=== PATIENT | female | born 1980 | race Caucasian/White ===

== ENCOUNTER 2017-04-15 08:55 | Emergency (ER) | payer SELFPAY ==
[~2017-04-15 08:55] MED LIST: SULF1TAB47 PO; TOBRA.3%O LEFT EYE; Z.0.NO CURRENT MEDS
[2017-04-15] MEDS ORDERED: XANA1TAB2 PO (09:06)
[2017-04-15] MEDS ORDERED: AMLO5TAB2 PO (09:06)
[2017-04-15] MEDS ORDERED: LORazepam 2 MG/ML VIAL IV PUSH ONE (09:15)
--- NOTE | 2017-04-15 09:20 | PD ---
HPI Chief Complaint: Seizure Time Seen by Provider: 09:07 Travel History International Travel<30 days: No Contact w/Intl Traveler<30days: No Traveled to known affect area: No History of Present Illness HPI The patient was seen and examined in the presence of the nurse. Patient is brought in by paramedics who believe she had a seizure. She was at a bus stop and fell to the ground and had tonic-clonic seizure activity for approximately 1 minute according to bystanders. She seemed postictal to the paramedics. She was a bit confused and groggy. She is slowly and steadily clearing up. She denies any complaint at this time. She takes Xanax 3 times a day for years for anxiety. She recently increased her dose to 4 times a day because of trouble sleeping and then ran out 2 days ago. She had a Xanax withdrawal seizure one year ago but has no history of epilepsy and takes no seizure medications. She denies head or neck pain. She did bite her tongue and has a bruise there. Symptoms were moderately severe but she has improved without alleviating factors. Duration was approximately 1 minute. PFSH Past Medical History Anxiety: Yes Depression: Yes Hypertension: Yes Seizures: Yes ?: Not Social History Alcohol Use: Yes (OCCASIONALLY) Tobacco Use: Yes Substance Use: No Allergies-Medications (Allergen,Severity, Reaction): Coded Allergies: No Known Allergies (Verified , 01/29/10) Reported Meds & Prescriptions Reported Meds & Active Scripts Active Reported Xanax (Alprazolam) 1 Mg Tab 1 Mg PO Q8H Amlodipine (Amlodipine Besylate) 5 Mg Tab 5 Mg PO DAILY Review of Systems General / Constitutional: No: Fever Eyes: No: Visual changes HENT: No: Headaches Cardiovascular: Positive: Tachycardia, No: Chest Pain or Discomfort Respiratory: No: Shortness of Breath Gastrointestinal: No: Abdominal Pain Genitourinary: No: Dysuria Musculoskeletal: No: Pain Skin: No Rash Neurologic: Positive: Seizures, No: Weakness Psychiatric: Positive: Anxiety, No: Depression Endocrine: No: Polydipsia Hematologic/Lymphatic: No: Easy Bruising Physical Exam Narrative GENERAL: Well-nourished, well-developed patient in no apparent distress. SKIN: Focused skin assessment reveals no rash and nodules. Skin is Warm and dry. HEAD: Atraumatic. Normocephalic. EYES: Pupils equal and round. No scleral icterus. No injection or drainage. ENT: No nasal bleeding or discharge. Mucous membranes pink and moist. There is bruising on her tongue NECK: Trachea midline. No JVD. No midline tenderness CARDIOVASCULAR: Regular rate and rhythm. No murmur appreciated. RESPIRATORY: No accessory muscle use. Clear to auscultation. Breath sounds equal bilaterally. GASTROINTESTINAL: Abdomen soft, non-tender, nondistended. Hepatic and splenic margins not palpable. MUSCULOSKELETAL: No obvious deformities. No clubbing. No cyanosis. No edema. NEUROLOGICAL: Awake and alert. No obvious cranial nerve deficits. Motor grossly within normal limits. Normal speech. PSYCHIATRIC: Appropriate mood and affect. She is calm and not anxious now.; insight and judgment reduced. Data Data Last Documented VS Vital Signs Date Time Temp Pulse Resp B/P Pulse Ox O2 Delivery O2 Flow Rate FiO2 04/15/17 09:03 Room Air Orders Iv Access Insert/Monitor (04/15/17 09:14) Complete Blood Count With Diff (04/15/17 09:14) Basic Metabolic Panel (Bmp) (04/15/17 09:14) Lorazepam Inj (Ativan Inj) (04/15/17 09:15) Electrocardiogram (04/15/17 09:15) Labs Laboratory Tests Test 04/15/17 09:20 White Blood Count 12.9 TH/MM3 Red Blood Count 5.12 MIL/MM3 Hemoglobin 16.2 GM/DL Hematocrit 47.1 % Mean Corpuscular Volume 92.0 FL Mean Corpuscular Hemoglobin 31.5 PG Mean Corpuscular Hemoglobin 34.3 % Concent Red Cell Distribution Width 12.8 % Platelet Count 295 TH/MM3 Mean Platelet Volume 8.3 FL Neutrophils (%) (Auto) 75.9 % Lymphocytes (%) (Auto) 19.8 % Monocytes (%) (Auto) 3.5 % Eosinophils (%) (Auto) 0.4 % Basophils (%) (Auto) 0.4 % Neutrophils # (Auto) 9.7 TH/MM3 Lymphocytes # (Auto) 2.5 TH/MM3 Monocytes # (Auto) 0.4 TH/MM3 Eosinophils # (Auto) 0.1 TH/MM3 Basophils # (Auto) 0.1 TH/MM3 CBC Comment DIFF FINAL Differential Comment Sodium Level 132 MEQ/L Potassium Level 3.6 MEQ/L Chloride Level 97 MEQ/L Carbon Dioxide Level 18.4 MEQ/L Anion Gap 17 MEQ/L Blood Urea Nitrogen 10 MG/DL Creatinine 1.13 MG/DL Estimat Glomerular Filtration 54 ML/MIN Rate Random Glucose 219 MG/DL Calcium Level 9.0 MG/DL MDM Medical Decision Making Medical Screen Exam Complete: Yes Emergency Medical Condition: Yes Medical Record Reviewed: Yes Differential Diagnosis Benzodiazepine withdrawal seizure, epilepsy, alcohol withdrawal, tremor, anxiety Narrative Course I have reviewed the patient's electronic medical record. Her last visit here was 2011. No visits for seizure IV placed CBC is normal except minimal leukocytosis Metabolic profile shows minor abnormalities not requiring emergent treatment I gave her 1 mg IV Ativan No neurologic deficit noted. I don't see indication for emergent brain imaging. She has no headache and is awake and conversant. We'll reevaluate her closely and observe for a while. I will observe her for 3 hours and she's had no recurrence of seizure. She is asymptomatic now. We discussed my recommendation for a slow long-term wean off of Xanax I wrote her 9 Librium to keep withdrawal and anxiety a day and she should call her physician tomorrow Diagnosis Primary Impression: Benzodiazepine withdrawal with complication Additional Impressions: Seizure Xanax use disorder, moderate, dependence Additional Instructions: The patient was advised to follow up with their physician and return if they worsen. The patient was warned about potential sedation for the medications they will receive on prescription. Recommending a slow long-term wean off of Xanax which you should discuss with your physician Med/Other Pt SpecificInfo: Prescription(s) given Scripts Chlordiazepoxide HCl 25 Mg [id number] Mg PO Q12HR PRN (WITHDRAWAL) #9 Prov:Ayaz Ospina MD 04/15/17 Disposition: 01 DISCHARGE HOME Condition: Stable Ayaz Ospina MD Apr 15, 2017 09:20
[2017-04-15 09:38] LABS: AUTOMATED NEUTROPHIL # 9.7 TH/MM3 (1.8-7.7); BASOPHIL # 0.1 TH/MM3 (0-0.2); BASOPHIL % 0.4 % (0.0-2.0); EOSINOPHIL # 0.1 TH/MM3 (0-0.4); EOSINOPHIL % 0.4 % (0.0-4.0); HEMATOCRIT 47.1 % (35.0-46.0); HEMO FLAGS DIFF FINAL; LYMPH % 19.8 % (9.0-44.0); LYMPHOCYTE # 2.5 TH/MM3 (1.0-4.8); MEAN CORPUSCULAR HEMOGLOBIN 31.5 PG (27.0-34.0); MEAN CORPUSCULAR HGB CONC 34.3 % (32.0-36.0); MONO % 3.5 % (0.0-8.0); NEUT % 75.9 % (16.0-70.0); PLATELET COUNT 295 TH/MM3 (150-450); RED BLOOD COUNT 5.12 MIL/MM3 (4.00-5.30); RED CELL DISTRIBUTION WIDTH 12.8 % (11.6-17.2); WHITE BLOOD COUNT 12.9 TH/MM3 (4.0-11.0)
[2017-04-15 10:02] LABS: BICARBONATE 18.4 MEQ/L (21.0-32.0); POTASSIUM 3.6 MEQ/L (3.5-5.1)
[2017-04-15] MEDS ORDERED: CHLO25CA9 PO (11:42)
--- NOTE | 2017-04-15 18:15 | EKG ---
Date Performed: 04/15/2017 Time Performed: 09:15:20 PTAGE: 37 years EKG: SINUS TACHYCARDIA WITH SHORT UT INTERVAL NONSPECIFIC ST & T-WAVE ABNORMALITY ABNORMAL RHYTH M ECG NO PREVIOUS TRACING DOCTOR: Bruce Bhandari Interpretating Date/Time 04/15/2017 18:11:48
== END 2017-04-15 11:57 | disposition home or self-care (01) ==
LOC: NEPC 08:55
DX: F15.93 Other stimulant use, unspecified with withdrawal (principal); R56.9 Unspecified convulsions; F15.90 Other stimulant use, unspecified, uncomplicated; D72.829 Elevated white blood cell count, unspecified; F41.9 Anxiety disorder, unspecified; R00.0 Tachycardia, unspecified; R94.31 Abnormal electrocardiogram [ECG] [EKG]; F32.9 Major depressive disorder, single episode, unspecified; I10 Essential (primary) hypertension; Z79.899 Other long term (current) drug therapy; Z72.0 Tobacco use
CPT/HCPCS: 80048; 85025; 93005; 96374; 99284; J2060

== ENCOUNTER 2017-09-07 11:40 | Emergency (ER) | payer SELFPAY ==
[~2017-09-07 11:40] MED LIST changes: +AMLO5TAB2 PO; +CHLO25CA9 PO; -SULF1TAB47 PO; -TOBRA.3%O LEFT EYE; +XANA1TAB2 PO; -Z.0.NO CURRENT MEDS
[2017-09-07 11:55] VITALS: BP 126/84; PULSE 51; RESP 16; TEMP 98.9; O2SAT 98
--- NOTE | 2017-09-07 12:06 | PD ---
HPI Chief Complaint: altered mental status Time Seen by Provider: 11:44 Travel History International Travel<30 days: No Contact w/Intl Traveler<30days: No Traveled to known affect area: No History of Present Illness HPI 37-year-old female was brought in by EMS after the patient was [place] Patient is not cooperating answering questions. In review of medical record, patient has history of hypertension, anxiety, depression, and possible seizure. Patient was on Xanax in the past. PFSH Past Medical History Anxiety: Yes Depression: Yes Hypertension: Yes Seizures: Yes Social History Alcohol Use: Yes (OCCASIONALLY) Tobacco Use: Yes Substance Use: No Allergies-Medications (Allergen,Severity, Reaction): Coded Allergies: No Known Allergies (Verified , 01/29/10) Reported Meds & Prescriptions Reported Meds & Active Scripts Active Chlordiazepoxide HCl 25 Mg Capsule 25 Mg PO Q12HR PRN Reported Xanax (Alprazolam) 1 Mg Tab 1 Mg PO Q8H Amlodipine (Amlodipine Besylate) 5 Mg Tab 5 Mg PO DAILY Review of Systems General / Constitutional: No: Fever Eyes: No: Visual changes HENT: No: Headaches Cardiovascular: No: Chest Pain or Discomfort Respiratory: No: Shortness of Breath Gastrointestinal: No: Abdominal Pain Genitourinary: No: Dysuria Musculoskeletal: No: Pain Skin: No Rash Neurologic: No: Weakness Psychiatric: No: Depression Endocrine: No: Polydipsia Hematologic/Lymphatic: No: Easy Bruising Physical Exam Narrative GENERAL: Well-nourished, well-developed patient. SKIN: Focused skin assessment warm/dry. HEAD: Normocephalic. EYES: No scleral icterus. No injection or drainage. Pupils 1.5 mm equal reactive. NECK: Supple, trachea midline. No JVD or lymphadenopathy. CARDIOVASCULAR: Regular rate and rhythm without murmurs, gallops, or rubs. RESPIRATORY: Breath sounds equal bilaterally. No accessory muscle use. GASTROINTESTINAL: Abdomen soft, non-tender, nondistended. MUSCULOSKELETAL: No cyanosis, or edema. BACK: Nontender without obvious deformity. No CVA tenderness. Neurologic exam: Patient is awake however would not answer much to the questions. Patient moves all extremities well. No obvious focal neurological deficit. Data Data Last Documented VS Vital Signs Date Time Temp Pulse Resp B/P (MAP) Pulse Ox O2 Delivery O2 Flow Rate FiO2 12/15/17 11:55 98.9 51 16 126/84 (98) 98 Orders Orders Complete Blood Count With Diff (09/07/17 11:44) Comprehensive Metabolic Panel (09/07/17 11:44) Thyroid Stimulating Hormone (09/07/17 11:44) Urinalysis - C+S If Indicated (09/07/17 11:44) Iv Access Insert/Monitor (09/07/17 11:44) Beta Hcg (Quant/Titer) (09/07/17 11:44) Psych Screen (09/07/17 11:44) Drug Screen, Random Urine (09/07/17 11:44) Alcohol (Ethanol) (09/07/17 11:44) Ed Urine Pregnancytest Poc (09/07/17 12:03) Salicylates (Aspirin) (09/07/17 12:04) Tylenol (Acetaminophen) (09/07/17 12:04) Labs Laboratory Tests Test 09/07/17 12:09 White Blood Count 10.2 TH/MM3 Red Blood Count 4.60 MIL/MM3 Hemoglobin 13.6 GM/DL Hematocrit 41.1 % Mean Corpuscular Volume 89.3 FL Mean Corpuscular Hemoglobin 29.5 PG Mean Corpuscular Hemoglobin Concent 33.0 % Red Cell Distribution Width 12.0 % Platelet Count 292 TH/MM3 Mean Platelet Volume 7.9 FL Neutrophils (%) (Auto) 68.4 % Lymphocytes (%) (Auto) 23.2 % Monocytes (%) (Auto) 7.7 % Eosinophils (%) (Auto) 0.2 % Basophils (%) (Auto) 0.5 % Neutrophils # (Auto) 6.9 TH/MM3 Lymphocytes # (Auto) 2.4 TH/MM3 Monocytes # (Auto) 0.8 TH/MM3 Eosinophils # (Auto) 0.0 TH/MM3 Basophils # (Auto) 0.1 TH/MM3 CBC Comment DIFF FINAL Differential Comment Urine Color YELLOW Urine Turbidity CLEAR Urine pH 6.0 Urine Specific [place] 1.033 Urine Protein 30 mg/dL Urine Glucose (UA) NEG mg/dL Urine Ketones 80 OR GREATER mg/dL Urine Occult Blood NEG Urine Nitrite NEG Urine Bilirubin NEG Urine Leukocyte Esterase NEG Urine WBC 0-2 /hpf Urine Squamous Epithelial Cells 0-5 /hpf Urine Bacteria RARE /hpf Microscopic Urinalysis Comment CULT NOT INDICATED Blood Urea Nitrogen 29 MG/DL Creatinine 0.59 MG/DL Random Glucose 102 MG/DL Total Protein 8.2 GM/DL Albumin 4.1 GM/DL Calcium Level 8.9 MG/DL Alkaline Phosphatase 59 U/L Aspartate Amino Transf (AST/SGOT) 193 U/L Alanine Aminotransferase (ALT/SGPT) 70 U/L Total Bilirubin 0.9 MG/DL Sodium Level 142 MEQ/L Potassium Level 3.7 MEQ/L Chloride Level 108 MEQ/L Carbon Dioxide Level 22.1 MEQ/L Anion Gap 12 MEQ/L Estimat Glomerular Filtration Rate 113 ML/MIN Thyroid Stimulating Hormone 3rd Gen 0.307 uIU/ML Human Chorionic Gonadotropin, Quant LESS THAN 1 MIU/ML Urine Opiates Screen NEG Urine Barbiturates Screen NEG Urine Amphetamines Screen NEG Urine Benzodiazepines Screen POS Urine Cocaine Screen NEG Urine Cannabinoids Screen NEG Ethyl Alcohol Level LESS THAN 3 MG/DL MDM Medical Decision Making Medical Screen Exam Complete: Yes Emergency Medical Condition: Yes Differential Diagnosis Differential diagnosis including substance-induced mood disorder, psychosis, schizophrenia. Narrative Course 37-year-old female was found sleeping in front of the local postal office. Patient was brought in by EMS. Patient's uncooperative for vocalizing her complaint. Patient is medically cleared for psychiatric evaluation and disposition. Patient will be transferred to the main hospital, psychiatric area for evaluation. Cole Ramires MD Sep 07, 2017 12:06
[2017-09-07 12:19] LABS: AUTOMATED NEUTROPHIL # 6.9 TH/MM3 (1.8-7.7); BASOPHIL # 0.1 TH/MM3 (0-0.2); BASOPHIL % 0.5 % (0.0-2.0); EOSINOPHIL % 0.2 % (0.0-4.0); HEMATOCRIT 41.1 % (35.0-46.0); HEMOGLOBIN 13.6 GM/DL (11.6-15.3); LYMPH % 23.2 % (9.0-44.0); LYMPHOCYTE # 2.4 TH/MM3 (1.0-4.8); MEAN CELL VOLUME 89.3 FL (80.0-100.0); MEAN CORPUSCULAR HEMOGLOBIN 29.5 PG (27.0-34.0); MEAN PLATELET VOLUME 7.9 FL (7.0-11.0); MONO % 7.7 % (0.0-8.0); MONOCYTE # 0.8 TH/MM3 (0-0.9); NEUT % 68.4 % (16.0-70.0); PLATELET COUNT 292 TH/MM3 (150-450); WHITE BLOOD COUNT 10.2 TH/MM3 (4.0-11.0)
[2017-09-07 12:20] LABS: CHLORIDE 108 MEQ/L (98-107); SODIUM (NA) 142 MEQ/L (136-145)
[2017-09-07 12:24] LABS: ALBUMIN 4.1 GM/DL (3.4-5.0); BICARBONATE 22.1 MEQ/L (21.0-32.0); BLOOD UREA NITROGEN 29 MG/DL (7-18); BLOOD, URINE NEG (NEG); CALCIUM 8.9 MG/DL (8.5-10.1); GLUCOSE,RANDOM 102 MG/DL (74-106); GLUCOSE,URINE NEG (NEG); KETONE, URINE 80 OR GREATER mg/dL (NEG); NITRITE,URINE NEG (NEG); URINE LEUKOCYTE ESTERASE NEG (NEG)
[2017-09-07 12:27] LABS: ALT (GPT) 70 U/L (10-53); AST (GOT) 193 U/L (15-37); CREATININE 0.59 MG/DL (0.50-1.00); GLOMERULAR FILTRATION RATE 113 ML/MIN (>89)
[2017-09-07 12:29] LABS: TOTAL BILIRUBIN ADULT 0.9 MG/DL (0.2-1.0); TOTAL PROTEIN 8.2 GM/DL (6.4-8.2)
[2017-09-07 12:30] LABS: ALKALINE PHOSPHATASE 59 U/L (45-117)
[2017-09-07 12:42] LABS: BILIRUBIN, URINE NEG (NEG)
[2017-09-07 12:43] LABS: URINE COLOR YELLOW (YELLW/STRAW)
[2017-09-07 12:44] LABS: SQUAMOUS EPITHELIAL CELL URINE 0-5 /hpf (0-5); WBC, URINE 0-2 /hpf (0-5)
[2017-09-07 12:45] LABS: BACTERIA, URINE RARE /hpf
[2017-09-07 14:27] VITALS: BP 156/86; PULSE 113; RESP 18; TEMP 98.1; O2SAT 100
[2017-09-07 15:19] VITALS: TEMP 99.3
[2017-09-07] MEDS ORDERED: OLANZapine IM 10 MG VIAL IM ONE (15:30)
--- NOTE | 2017-09-07 17:39 | PD ---
History of Present Illness Chief Complaint: Altered Mental Status Time Seen by Provider: 15:00 Travel History International Travel<30 Days: No Contact w/Intl Traveler<30days: No Known affected area: No Legal Status Legal Status: Involuntary Beasley Act Comment: GARRICK Bryant History of Present Illness: History of Present Illness HPI 37-year-old female with unknown past psychiatric history who was brought in by EMS after the patient was found sleeping in front of a the post office. Upon arrival to the ED the patient was not answering any of the questions posed to her. The patient was placed in [facility] for further evaluation and observation. She is able to follow directions but is not answering any questions. She is wondering around her her room and has taken off her hospital down several times. She appears internally preoccupied as well as appears frightened. She has not provided any any history. She appears sunburned asked if she lopez has been outside. Patient not accepting redirection to keep her hospital gown on and remains restless. ETO is administered at this time. Patient missed placed under Beasley act for further observation, due to inability to care for self. Electronic medical record is reviewed she was seen in the emergency room in April 15 for benzodiazepine withdrawal and reported history of seizure. Current toxicology is positive for benzo. I placed a call to her father Ata Kiser at [birth year] [phone] as he is listed as person to contact in case of an emergency. Her father reports that she has a long history of substance abuse and that she is supposedly going to a methadone clinic every day. She last contact him last week and he wired her $300 to pay for a motel room. As far as he knows she has no previous psychiatric history. At approximately 1900 zully is observed talking to her mother over the telephone. She is speaking coherently and clearly and is overheard making demands of her mother.. PFSH Past Medical History Medical History: Unable to Obtain Anxiety: Yes Depression: Yes Hypertension: Yes Seizures: Yes ?: Unknown LMP: would not answer Past Surgical History Surgical History: Unable to Obtain Psychiatric History Psychiatric History Hx Psychiatric Treatment: Unknown Social History female, possibly homeless. Hx Alcohol Use: Yes (OCCASIONALLY, from recalled history) Hx Tobacco Use: Yes (from recalled history) Family Psychiatric History Unknown Allergies-Medications (Allergen,Severity, Reaction): Coded Allergies: No Known Allergies (Verified Allergy, Unknown, 09/07/17) Reported Meds & Prescriptions Reported Meds & Active Scripts Active Chlordiazepoxide HCl 25 Mg Capsule 25 Mg PO Q12HR PRN Reported Xanax (Alprazolam) 1 Mg Tab 1 Mg PO Q8H Amlodipine (Amlodipine Besylate) 5 Mg Tab 5 Mg PO DAILY Review of Systems ROS Limitations: Clinical Condition Mental Status Examination Appearance: Appropriate Consciousness: Alert Motor Activity: Other (is walking with a limp to the left foot) Speech: Other (non-communicative) Language: Other (noncommunicative) Fund of Knowledge: Poor Attention and Concentration: Easily Distracted Memory: Impaired (unable to assess) Mood: Other (appears frightened) Affect: Blunt Thought Process & Associations: Other (unable to assess) Thought Content: Other (unable to assess) Hallucination Type: Other (unable to determine) Delusion Type: Other (unable to determine) Insight: Poor Judgment: Poor MDM Medical Decision Making Medical Record Reviewed: Yes Assessment/Plan 37-year-old female with unknown psychiatric history and reported history of substance abuse who presents to the emergency room brought in by EMS after she was found sleeping on a park bench. The patient was non-communicative, she is wandering around her verbal, taking her hospital gown off, not responding to verbal redirection, patient is placed under Beasley act for further observation. She is provided ETO. [facility]. Later in the afternoon the patient was heard speaking with her mother on the telephone without any impairment. She later refused to answer questions and began to communicate with non sensical words. Orders Orders Complete Blood Count With Diff (09/07/17 11:44) Comprehensive Metabolic Panel (09/07/17 11:44) Thyroid Stimulating Hormone (09/07/17 11:44) Urinalysis - C+S If Indicated (09/07/17 11:44) Iv Access Insert/Monitor (09/07/17 11:44) Beta Hcg (Quant/Titer) (09/07/17 11:44) Psych Screen (09/07/17 11:44) Drug Screen, Random Urine (09/07/17 11:44) Alcohol (Ethanol) (09/07/17 11:44) Ed Urine Pregnancytest Poc (09/07/17 12:03) Salicylates (Aspirin) (09/07/17 12:04) Tylenol (Acetaminophen) (09/07/17 12:04) Olanzapine Inj (Zyprexa Inj) (09/07/17 15:30) Diet Regular Basic (09/07/17 Dinner) Results Vital Signs Date Time Temp Pulse Resp B/P (MAP) Pulse Ox O2 Delivery O2 Flow Rate FiO2 09/07/17 15:19 99.3 09/07/17 14:27 98.1 113 18 156/86 (109) 100 Room Air 09/07/17 11:55 98.9 51 16 126/84 (98) 98 Laboratory Tests Test 09/07/17 12:09 White Blood Count 10.2 Red Blood Count 4.60 Hemoglobin 13.6 Hematocrit 41.1 Mean Corpuscular Volume 89.3 Mean Corpuscular Hemoglobin 29.5 Mean Corpuscular Hemoglobin Concent 33.0 Red Cell Distribution Width 12.0 Platelet Count 292 Mean Platelet Volume 7.9 Neutrophils (%) (Auto) 68.4 Lymphocytes (%) (Auto) 23.2 Monocytes (%) (Auto) 7.7 Eosinophils (%) (Auto) 0.2 Basophils (%) (Auto) 0.5 Neutrophils # (Auto) 6.9 Lymphocytes # (Auto) 2.4 Monocytes # (Auto) 0.8 Eosinophils # (Auto) 0.0 Basophils # (Auto) 0.1 CBC Comment DIFF FINAL Differential Comment Urine Color YELLOW Urine Turbidity CLEAR Urine pH 6.0 Urine Specific [place] 1.033 Urine Protein 30 Urine Glucose (UA) NEG Urine Ketones 80 OR GREATER Urine Occult Blood NEG Urine Nitrite NEG Urine Bilirubin NEG Urine Leukocyte Esterase NEG Urine WBC 0-2 Urine Squamous Epithelial Cells 0-5 Urine Bacteria RARE Microscopic Urinalysis Comment CULT NOT INDICATED Blood Urea Nitrogen 29 Creatinine 0.59 Random Glucose 102 Total Protein 8.2 Albumin 4.1 Calcium Level 8.9 Alkaline Phosphatase 59 Aspartate Amino Transf (AST/SGOT) 193 Alanine Aminotransferase (ALT/SGPT) 70 Total Bilirubin 0.9 Sodium Level 142 Potassium Level 3.7 Chloride Level 108 Carbon Dioxide Level 22.1 Anion Gap 12 Estimat Glomerular Filtration Rate 113 Thyroid Stimulating Hormone 3rd Gen 0.307 Human Chorionic Gonadotropin, Quant LESS THAN 1 Salicylates Level 2.1 Urine Opiates Screen NEG Acetaminophen Level LESS THAN 2.0 Urine Barbiturates Screen NEG Urine Amphetamines Screen NEG Urine Benzodiazepines Screen POS Urine Cocaine Screen NEG Urine Cannabinoids Screen NEG Ethyl Alcohol Level LESS THAN 3 Diagnosis Primary Impression: Substance-induced disorder Bella Grimes [employer] Sep 07, 2017 17:39
[2017-09-07 22:00] VITALS: BP 131/80; PULSE 88; RESP 16; TEMP 98.2; O2SAT 100
== END 2017-09-08 00:58 ==
LOC: PHED 11:40 → NEPJ 09-08 00:58
DX: F19.10 Other psychoactive substance abuse, uncomplicated (principal); F41.9 Anxiety disorder, unspecified; F32.9 Major depressive disorder, single episode, unspecified; R56.9 Unspecified convulsions; Z72.0 Tobacco use; Z79.899 Other long term (current) drug therapy
CPT/HCPCS: 80053; 80307; 81001; 84443; 84702; 84703; 85025; 96372; 99285; J3410

== ENCOUNTER 2017-10-07 16:10 | Inpatient (IN) | payer SELFPAY ==
[~2017-10-07] VITALS: Ht 170.2 cm; Wt 65.0 kg
[2017-10-07] VITALS (9 sets, daily range): BP systolic 91–113; BP diastolic 59–78; PULSE 83–96; RESP 17–25; TEMP 95.5–98.2; O2SAT 93–100
[2017-10-07] MEDS ORDERED: SODIUM CHLOR 0.9% 1000 ML INJ 1,000 ML IV ONE ×2 (16:16→17:00)
[2017-10-07] MEDS ORDERED: NALOXONE HCL 2 MG/2 ML VIAL IV PUSH ONE (16:30)
[2017-10-07] MEDS ORDERED: SODIUM CHLORIDE 0.9% FLUSH 10 ML FLUSH IVF PRN (16:30)
[2017-10-07 16:39] LABS: AUTOMATED NEUTROPHIL # 4.7 TH/MM3 (1.8-7.7); BASOPHIL # 0.1 TH/MM3 (0-0.2); BASOPHIL % 0.7 % (0.0-2.0); EOSINOPHIL # 0.2 TH/MM3 (0-0.4); EOSINOPHIL % 2.2 % (0.0-4.0); HEMATOCRIT 39.9 % (35.0-46.0); HEMOGLOBIN 13.7 GM/DL (11.6-15.3); LYMPH % 31.2 % (9.0-44.0); LYMPHOCYTE # 2.4 TH/MM3 (1.0-4.8); MEAN CELL VOLUME 94.1 FL (80.0-100.0); MEAN CORPUSCULAR HEMOGLOBIN 32.3 PG (27.0-34.0); MEAN CORPUSCULAR HGB CONC 34.4 % (32.0-36.0); MEAN PLATELET VOLUME 7.9 FL (7.0-11.0); MONO % 5.1 % (0.0-8.0); MONOCYTE # 0.4 TH/MM3 (0-0.9); NEUT % 60.8 % (16.0-70.0); PLATELET COUNT 243 TH/MM3 (150-450); RED BLOOD COUNT 4.24 MIL/MM3 (4.00-5.30); WHITE BLOOD COUNT 7.7 TH/MM3 (4.0-11.0)
[2017-10-07 17:07] LABS: ALBUMIN 3.4 GM/DL (3.4-5.0); ALKALINE PHOSPHATASE 88 U/L (45-117); ALT (GPT) 420 U/L (10-53); AST (GOT) 108 U/L (15-37); BICARBONATE 23.6 MEQ/L (21.0-32.0); BLOOD UREA NITROGEN 11 MG/DL (7-18); CALCIUM 7.8 MG/DL (8.5-10.1); CHLORIDE 115 MEQ/L (98-107); CREATININE 0.51 MG/DL (0.50-1.00); GLOMERULAR FILTRATION RATE 134 ML/MIN (>89); GLUCOSE,RANDOM 94 MG/DL (74-106); SODIUM (NA) 146 MEQ/L (136-145); TOTAL BILIRUBIN ADULT 0.4 MG/DL (0.2-1.0); TOTAL PROTEIN 7.1 GM/DL (6.4-8.2)
[2017-10-07 17:10] LABS: ACETAMINOPHEN LESS THAN 2.0 MCG/ML (10.0-30.0)
--- NOTE | 2017-10-07 17:20 | RADRPT ---
EXAM DATE/TIME: 10/07/2017 16:20 [facility] COMPARISON: No previous studies available for comparison. INDICATIONS : Syncope, possible overdose MEDICAL HISTORY : None. SURGICAL HISTORY : None. ENCOUNTER: Initial ACUITY: 1 day PAIN SCORE: Non-responsive. LOCATION: chest FINDINGS: A single view of the chest demonstrates the lungs to be symmetrically aerated without evidence of mas s, infiltrate or effusion. The cardiomediastinal contours are unremarkable. Osseous structures are intact. CONCLUSION: No evidence of acute cardiopulmonary disease. Mamadou Barcenas MD on October 07, 2017 at 17:17 Board Certified Radiologist. This report was verified electronically.
--- NOTE | 2017-10-07 17:58 | PD ---
HPI Chief Complaint: OD/ Ingestion Time Seen by Provider: 16:16 Travel History International Travel<30 days: No Contact w/Intl Traveler<30days: No Traveled to known affect area: No History of Present Illness HPI The patient 37 years old and arrives by EMS due to presumed overdose. Patient was found unresponsive on hotel floor. She had evidently ingested Xanax as a empty bottle was found in her hotel room which had been filled 14 days prior with 90 tablets. Unknown time of ingestion. EMS gave 0.8 mg Narcan with no significant improvement. Patient would push the examiner's hand away on sternal rub according to EMS suggesting a GCS of 9 (eyes to, verbal 2, motor 5) . Severity moderate. Timing constant. Duration unknown. PFSH Past Medical History Anxiety: Yes Depression: Yes Diminished Hearing: No (UTO) Hypertension: Yes Seizures: Yes Tetanus Vaccination: Unknown ?: Not Past Surgical History Surgical History: Unable to Obtain Social History Alcohol Use: Yes (OCCASIONALLY, from recalled history) Tobacco Use: Yes (from recalled history) Substance Use: No (UTO) Allergies-Medications (Allergen,Severity, Reaction): Coded Allergies: No Known Allergies (Verified Allergy, Unknown, 10/07/17) Reported Meds & Prescriptions Reported Meds & Active Scripts Active Chlordiazepoxide HCl 25 Mg Capsule 25 Mg PO Q12HR PRN Reported Xanax (Alprazolam) 1 Mg Tab 1 Mg PO Q8H Amlodipine (Amlodipine Besylate) 5 Mg Tab 5 Mg PO DAILY Review of Systems Except as stated in HPI: all other systems reviewed are Neg Physical Exam Narrative GENERAL: 37-year-old gcs 9 (eye 2, verbal 2, motor 5) SKIN: Warm and dry. HEAD: Atraumatic. Normocephalic. EYES: Pupils equal and round. No scleral icterus. No injection or drainage. ENT: No nasal bleeding or discharge. Mucous membranes pink and moist. The gag reflex is intact. NECK: Trachea midline. No JVD. CARDIOVASCULAR: The rhythm is regular at a rate of about 90. RESPIRATORY: Breath sounds are present bilaterally. GASTROINTESTINAL: Abdomen soft, non-tender, nondistended. Hepatic and splenic margins not palpable. MUSCULOSKELETAL: Extremities without clubbing, cyanosis, or edema. No obvious deformities. NEUROLOGICAL: GCS 9 as noted. The patient localizes to pain pushing away the examiner's hand upon arrival. PSYCHIATRIC: Concern for polysubstance abuse/overdose.. Data Data Last Documented VS Vital Signs Date Time Temp Pulse Resp B/P (MAP) Pulse Ox O2 Delivery O2 Flow Rate FiO2 10/07/17 17:39 90 18 91/61 (71) 97 Room Air 10/07/17 16:13 95.5 Vital signs reviewed Orders Orders Electrocardiogram (10/07/17 16:16) Complete Blood Count With Diff (10/07/17 16:16) Comprehensive Metabolic Panel (10/07/17 16:16) Chest, Single Ap (10/07/17 16:16) Arterial Blood Gas (Abg) (10/07/17 16:16) Iv Access Insert/Monitor (10/07/17 16:16) Ecg Monitoring (10/07/17 16:16) Oximetry (10/07/17 16:16) Oxygen Administration (10/07/17 16:16) Naloxone Inj (Narcan Inj) (10/07/17 16:30) Sodium Chloride 0.9% Flush (Ns Flush) (10/07/17 16:30) Sodium Chlor 0.9% 1000 Ml Inj (Ns 1000 M (10/07/17 16:16) Drug Screen, Random Urine (10/07/17 16:16) Alcohol (Ethanol) (10/07/17 16:16) Salicylates (Aspirin) (10/07/17 16:16) Tylenol (Acetaminophen) (10/07/17 16:16) ^ Straight Catheter (10/07/17 16:16) Sodium Chlor 0.9% 1000 Ml Inj (Ns 1000 M (10/07/17 17:00) Admit Order (Ed Use Only) (10/07/17 ) Piping Supervisor / Telemetry MENDEL.Q8H (10/07/17 17:58) Vital Signs (Adult) Q4H (10/07/17 17:58) Diet Npo (10/07/17 Dinner) Activity Bed Rest (10/07/17 17:58) Notify Dr: Other (10/07/17 17:58) Consult Psychiatry (10/07/17 ) Labs Laboratory Tests Test 10/07/17 16:20 10/07/17 16:30 10/07/17 16:33 White Blood Count 7.7 TH/MM3 Red Blood Count 4.24 MIL/MM3 Hemoglobin 13.7 GM/DL Hematocrit 39.9 % Mean Corpuscular Volume 94.1 FL Mean Corpuscular Hemoglobin 32.3 PG Mean Corpuscular Hemoglobin Concent 34.4 % Red Cell Distribution Width 14.0 % Platelet Count 243 TH/MM3 Mean Platelet Volume 7.9 FL Neutrophils (%) (Auto) 60.8 % Lymphocytes (%) (Auto) 31.2 % Monocytes (%) (Auto) 5.1 % Eosinophils (%) (Auto) 2.2 % Basophils (%) (Auto) 0.7 % Neutrophils # (Auto) 4.7 TH/MM3 Lymphocytes # (Auto) 2.4 TH/MM3 Monocytes # (Auto) 0.4 TH/MM3 Eosinophils # (Auto) 0.2 TH/MM3 Basophils # (Auto) 0.1 TH/MM3 CBC Comment DIFF FINAL Differential Comment Blood Urea Nitrogen 11 MG/DL Creatinine 0.51 MG/DL Random Glucose 94 MG/DL Total Protein 7.1 GM/DL Albumin 3.4 GM/DL Calcium Level 7.8 MG/DL Alkaline Phosphatase 88 U/L Aspartate Amino Transf (AST/SGOT) 108 U/L Alanine Aminotransferase (ALT/SGPT) 420 U/L Total Bilirubin 0.4 MG/DL Sodium Level 146 MEQ/L Potassium Level 4.1 MEQ/L Chloride Level 115 MEQ/L Carbon Dioxide Level 23.6 MEQ/L Anion Gap 7 MEQ/L Estimat Glomerular Filtration Rate 134 ML/MIN Salicylates Level LESS THAN 1.7 MG/DL Acetaminophen Level LESS THAN 2.0 MCG/ML Ethyl Alcohol Level 262 MG/DL Urine Opiates Screen NEG Urine Barbiturates Screen NEG Urine Amphetamines Screen NEG Urine Benzodiazepines Screen POS Urine Cocaine Screen POS Urine Cannabinoids Screen NEG Blood Gas Puncture Site RT RADIAL Blood Gas Patient Temperature 98.6 Blood Gas HCO3 22 mmol/L Blood Gas Base Excess -3.5 mmol/L Blood Gas Oxygen Saturation 94 % Arterial Blood pH 7.29 Arterial Blood Partial Pressure CO2 47 mmHg Arterial Blood Partial Pressure O2 91 mmHG Arterial Blood Oxygen Content 18.2 Vol % Arterial Blood Carboxyhemoglobin 1.7 % Arterial Blood Methemoglobin 0.6 % Blood Gas Hemoglobin 13.7 G/DL Oxygen Delivery Device ROOM AIR Blood Gas Inspired Oxygen 21 % [facility] Medical Decision Making Medical Screen Exam Complete: Yes Emergency Medical Condition: Yes Medical Record Reviewed: Yes Differential Diagnosis Polysubstance abuse, drug overdose of indeterminate intent, hypoxia Narrative Course CBC & BMP Diagram 10/07/17 16:20 Total Protein 7.1, Albumin 3.4, Calcium Level 7.8 L, Alkaline Phosphatase 88, Aspartate Amino Transf (AST/SGOT) 108 H, Alanine Aminotransferase (ALT/SGPT) 420 H, Total Bilirubin 0.4 Urine drug screen shows cocaine and benzos. The patient is hypothermic. A warm blanket has been started. Her pulse is been about 99 or so. The blood pressure is been 90/50. Rectal temp 95.9 warming blanket started Case was discussed with hospitalist who asked for consumer marketing analyst admission. Case discussed with Dr Flores for consumer marketing analyst service Patient examined at about 6 PM and at that point had GCS of 8 (eyes 2, verbal 1 , motor 5). The pulse was in the 90s and the blood pressure is 92/64 The patient had received 2 mg of IV Narcan and piloerection was observed along with dilation of the pupils which had been pinpoint upon arrival Presentation is concerning for a large benzodiazepine ingestion coupled with cocaine, alcohol and presumably opioids. Critical Care Narrative Aggregate critical care time was 35 minutes. Time to perform other separately billable procedures was not included in the critical care time. My time did not include minutes spent treating any other patients simultaneously or on activities that did not directly contribute to the patient's treatment. The services I provided to this patient were to treat and/or prevent clinically significant deterioration that could result in: Hypoxia, multiorgan failure I provided critical care services requiring my management, as noted below: Chart data review, documentation time, medication orders and management, vital sign assessments/reviewing monitor data, ordering and reviewing lab tests, ordering and interpreting/reviewing x-rays and diagnostic studies, care of the patient and discussion of the patient with the admitting physicians. Diagnosis Primary Impression: Overdose Additional Impression: Polysubstance abuse Wenceslao Power MD Oct 07, 2017 17:58
--- NOTE | 2017-10-07 18:16 | HHI.HP ---
[facility] No Primary Care Physician Admission Diagnosis PSA; Xanax Overdose Diagnoses: Travel History International Travel<30 Days: No Contact w/Intl Traveler <30 Da: No Traveled to Known Affected Are: No History of Present Illness Asleep with very little response to noxious stimuli Review of Systems ROS Limitations: Altered Mental Status Except as stated in HPI: all other systems reviewed are Neg Past Family Social History Allergies: Coded Allergies: No Known Allergies (Verified Allergy, Unknown, 10/07/17) Physical Exam Vital Signs Vital Signs Date Time Temp Pulse Resp B/P (MAP) Pulse Ox O2 Delivery O2 Flow Rate FiO2 10/07/17 17:39 90 18 91/61 (71) 97 Room Air 10/07/17 17:00 84 95/59 (71) 10/07/17 16:34 97 Room Air 10/07/17 16:13 95.5 93 17 113/78 (90) 97 Physical Exam GENERAL: This is a well-nourished, well-developed patient, in no apparent distress. SKIN: No rashes, ecchymoses or lesions. Cool and dry. HEAD: Atraumatic. Normocephalic. No temporal or scalp tenderness. EYES: Pupils equal round and reactive. Extraocular motions intact. No scleral icterus. No injection or drainage. ENT: Nose without bleeding, purulent drainage or septal hematoma. Throat without erythema, tonsillar hypertrophy or exudate. Uvula midline. Airway patent. NECK: Trachea midline. No JVD or lymphadenopathy. Supple, nontender, no meningeal signs. CARDIOVASCULAR: Regular rate and rhythm without murmurs, gallops, or rubs. RESPIRATORY: Clear to auscultation. Breath sounds equal bilaterally. No wheezes , rales, or rhonchi. GASTROINTESTINAL: Abdomen soft, non-tender, nondistended. No hepato-splenomegaly , or palpable masses. No guarding. MUSCULOSKELETAL: Extremities without clubbing, cyanosis, or edema. No joint tenderness, effusion, or edema noted. No calf tenderness. Negative Homans sign bilaterally. NEUROLOGICAL: Awake and alert. Cranial nerves II through XII intact. Motor and sensory grossly within normal limits. Five out of 5 muscle strength in all muscle groups. Normal speech. Laboratory Laboratory Tests Test 10/07/17 16:20 10/07/17 16:30 10/07/17 16:33 White Blood Count 7.7 Red Blood Count 4.24 Hemoglobin 13.7 Hematocrit 39.9 Mean Corpuscular Volume 94.1 Mean Corpuscular Hemoglobin 32.3 Mean Corpuscular Hemoglobin Concent 34.4 Red Cell Distribution Width 14.0 Platelet Count 243 Mean Platelet Volume 7.9 Neutrophils (%) (Auto) 60.8 Lymphocytes (%) (Auto) 31.2 Monocytes (%) (Auto) 5.1 Eosinophils (%) (Auto) 2.2 Basophils (%) (Auto) 0.7 Neutrophils # (Auto) 4.7 Lymphocytes # (Auto) 2.4 Monocytes # (Auto) 0.4 Eosinophils # (Auto) 0.2 Basophils # (Auto) 0.1 CBC Comment DIFF FINAL Differential Comment Blood Urea Nitrogen 11 Creatinine 0.51 Random Glucose 94 Total Protein 7.1 Albumin 3.4 Calcium Level 7.8 Alkaline Phosphatase 88 Aspartate Amino Transf (AST/SGOT) 108 Alanine Aminotransferase (ALT/SGPT) 420 Total Bilirubin 0.4 Sodium Level 146 Potassium Level 4.1 Chloride Level 115 Carbon Dioxide Level 23.6 Anion Gap 7 Estimat Glomerular Filtration Rate 134 Salicylates Level LESS THAN 1.7 Acetaminophen Level LESS THAN 2.0 Ethyl Alcohol Level 262 Urine Opiates Screen NEG Urine Barbiturates Screen NEG Urine Amphetamines Screen NEG Urine Benzodiazepines Screen POS Urine Cocaine Screen POS Urine Cannabinoids Screen NEG Blood Gas Puncture Site RT RADIAL Blood Gas Patient Temperature 98.6 Blood Gas HCO3 22 Blood Gas Base Excess -3.5 Blood Gas Oxygen Saturation 94 Arterial Blood pH 7.29 Arterial Blood Partial Pressure CO2 47 Arterial Blood Partial Pressure O2 91 Arterial Blood Oxygen Content 18.2 Arterial Blood Carboxyhemoglobin 1.7 Arterial Blood Methemoglobin 0.6 Blood Gas Hemoglobin 13.7 Oxygen Delivery Device ROOM AIR Blood Gas Inspired Oxygen 21 Result Diagram: 10/07/17 1620 10/07/17 1620 Caprini VTE Risk Assessment Caprini Risk Assessment Model Point Value = 1 Point Value = 2 Point Value = 3 Point Value = 5 Age 41-60 Minor surgery BMI > 25 kg/m2 Swollen legs Varicose veins or History of unexplained or recurrent spontaneous Oral contraceptives or hormone replacement Sepsis (< 1 month) Serious lung disease, including pneumonia (< 1 month) Abnormal pulmonary function Acute myocardial infarction Congestive heart failure (< 1 month) History of inflammatory bowel disease Medical patient at bed rest Age 61-74 Arthroscopic surgery Major open surgery (> 45 min) Laparoscopic surgery (> 45 min) Malignancy Confined to bed (> 72 hours) Immobilizing plaster cast Central venous access Age >= 75 History of VTE Family history of VTE Factor V Leiden Prothrombin [id number] Lupus anticoagulant Anticardiolipin antibodies Elevated serum homocysteine Heparin-induced thrombocytopenia Other congenital or acquired thrombophilia Stroke (< 1 month) Elective arthroplasty Hip, pelvis, or leg fracture Acute spinal cord injury (< 1 month) Prophylaxis Regimen Total Risk Factor Score Risk Level Prophylaxis Regimen 0-1 Low Early ambulation 2 Moderate Order ONE of the following: *Sequential Compression Device (SCD) *Heparin 5000 units SQ BID 3-4 Higher Order ONE of the following medications: *Heparin 5000 units SQ TID *Enoxaparin/Lovenox 40 mg SQ daily (WT < 150 kg, CrCl > 30 mL/min) *Enoxaparin/Lovenox 30 mg SQ daily (WT < 150 kg, CrCl > 10-29 mL/min) *Enoxaparin/Lovenox 30 mg SQ BID (WT < 150 kg, CrCl > 30 mL/min) AND/OR *Sequential Compression Device (SCD) 5 or more Highest Order ONE of the following medications: *Heparin 5000 units SQ TID (Preferred with Epidurals) *Enoxaparin/Lovenox 40 mg SQ daily (WT < 150 kg, CrCl > 30 mL/min) *Enoxaparin/Lovenox 30 mg SQ daily (WT < 150 kg, CrCl > 10-29 mL/min) *Enoxaparin/Lovenox 30 mg SQ BID (WT < 150 kg, CrCl > 30 mL/min) AND *Sequential Compression Device (SCD) Physician Certification Order for Inpatient Services The services are ordered in accordance with Medicare regulations or non- Medicare payer requirements, as applicable. In the case of services not specified as inpatient-only, they are appropriately provided as inpatient services in accordance with the 2-midnight benchmark. days is the estimated time the patient will need to remain in the hospital, assuming treatment plan goals are met and no additional complications. Feliciano Mccoy Oct 07, 2017 18:16
[2017-10-07] MEDS ORDERED: NALOXONE HCL 0.4 MG/ML AMP IV PUSH PRN (18:30)
[2017-10-07] MEDS ORDERED: SENNOSIDES 8.6 MG TAB PO PRN ×2 (18:30→19:00)
[2017-10-07] MEDS ORDERED: LACTULOSE SYRUP 20 GM/30 ML CUP PO PRN ×2 (18:30→19:00)
[2017-10-07] MEDS ORDERED: MAGNESIUM HYDROXIDE SUSP 30 ML CUP PO PRN ×2 (18:30→19:00)
[2017-10-07] MEDS ORDERED: BISACODYL 10 MG SUPP RECTAL PRN ×2 (18:30→19:00)
[2017-10-07] MEDS: SODIUM CHLOR 0.9% 1000 ML INJ 1,000 ML IV SCH (18:50)
[2017-10-07] MEDS ORDERED: CHLORHEXIDINE GLUCONATE 2 % 1 PACK (2 CLOTHS) TOP PRN (19:00)
[2017-10-07] MEDS ORDERED: MISCELLANEOUS NURSING INFORMATION XX SCH (19:00)
[2017-10-07] MEDS ORDERED: METOCLOPRAMIDE HCL 10 MG/2 ML VIAL IV PUSH PRN (19:00)
[2017-10-07] MEDS ORDERED: ONDANSETRON HCL 4 MG/2 ML VIAL IV PUSH PRN (19:00)
[2017-10-07] MEDS ORDERED: SODIUM CHLORIDE 0.9% FLUSH 10 ML FLUSH IV FLUSH PRN (19:00)
[2017-10-07] MEDS ORDERED: RESP: ALBUTEROL 2.5 MG/IPRATROPIUM 0.5 MG NEB (PRN) INH (19:00)
--- NOTE | 2017-10-07 19:21 | RADRPT ---
EXAM DATE/TIME: 10/07/2017 19:01 [place] COMPARISON: No previous studies available for comparison. INDICATIONS : Altered mental status. RADIATION DOSE: 56.35 CTDIvol (mGy) MEDICAL HISTORY : Hypertension. Seizures. SURGICAL HISTORY : None. ENCOUNTER: Initial ACUITY: 1 day PAIN SCALE: 0/10 LOCATION: Bilateral head TECHNIQUE: Multiple contiguous axial images were obtained of the head. Using automated exposure control and adj ustment of the mA and/or kV according to patient size, radiation dose was kept as low as reasonably a chievable to obtain optimal diagnostic quality images. DICOM format image data is available electro nically for review and comparison. FINDINGS: CEREBRUM: The ventricles are normal for age. No evidence of midline shift, mass lesion, hemorrhage or acute in farction. No extra-axial fluid collections are seen. POSTERIOR FOSSA: The cerebellum and brainstem are intact. The 4th ventricle is midline. The cerebellopontine angle i s unremarkable. EXTRACRANIAL: The visualized portion of the orbits is intact. SKULL: The calvaria is intact. No evidence of skull fracture. CONCLUSION: Normal noncontrast head CT. Mamadou Barcenas MD on October 07, 2017 at 19:19 Board Certified Radiologist. This report was verified electronically.
[2017-10-07] MEDS: D5-1/2 NS + KCL 20 MEQ INJ 1,000 ML IV SCH (20:38)
[2017-10-07] MEDS: FAMOTIDINE 20 MG/2 ML VIAL IV PUSH SCH ×2 (20:39→21:28)
[2017-10-07] MEDS: SODIUM CHLORIDE 0.9% FLUSH 10 ML FLUSH IV FLUSH SCH (20:39)
[2017-10-07] MEDS: DOCUSATE SODIUM 50 MG/SENNA 8.6 MG TAB PO SCH (20:39)
--- NOTE | 2017-10-07 21:36 | HHI.HP ---
HPI Service Critical Care Medicine Primary Care Physician No Primary Care Physician Admission Diagnosis PSA; Xanax Overdose Diagnosis: Travel History International Travel<30 Days: No Contact w/Intl Traveler <30 Da: No Traveled to Known Affected Are: No History of Present Illness HPI 37 y/o female who was found unresponsive on a hotel floor. She was noted to have an empty Xanax bottle near her which had been filled 14 days ago with 90 tablets. EMS gave 0.8 mg Narcan with no significant improvement. She had a GCS of 9 the field per ER documentation. Patient was evaluated in the ER and was maintaining her heart rate and blood pressure and O2 sats on 2 L nasal cannula. She was accepted for admission by critical care medicine service. When I evaluated the patient in the ER she was drowsy though arousable, disoriented and confused not following commands. History was obtained by reviewing records and discussion with ER physician. Tox screen was positive for benzodiazepine and cocaine. She was also positive for EtOH. History PFSH Past Medical History Anxiety: Yes Depression: Yes Diminished Hearing: No (UTO) Hypertension: Yes Seizures: Yes Tetanus Vaccination: Unknown ?: Not Past Surgical History Surgical History: Unable to Obtain Social History Alcohol Use: Yes (OCCASIONALLY, from recalled history) Tobacco Use: Yes (from recalled history) Substance Use: No (UTO) Allergies-Medications Allergies-Medications (Allergen,Severity, Reaction): Coded Allergies: No Known Allergies (Verified Allergy, Unknown, 10/07/17) Reported Meds & Prescriptions Reported Meds & Active Scripts Active Chlordiazepoxide HCl 25 Mg Capsule 25 Mg PO Q12HR PRN Reported Xanax (Alprazolam) 1 Mg Tab 1 Mg PO Q8H Amlodipine (Amlodipine Besylate) 5 Mg Tab 5 Mg PO DAILY Review of Systems ROS Limitations: Clinical Condition, Altered Mental Status Physical Exam Vital Signs Vital Signs Date Time Temp Pulse Resp B/P (MAP) Pulse Ox O2 Delivery O2 Flow Rate FiO2 10/07/17 20:00 98.2 91 25 98/67 (77) 93 10/07/17 19:59 98.2 93 22 101/69 (80) 93 10/07/17 19:31 97.9 10/07/17 18:50 95.9 96 22 92/64 (73) 100 Room Air 10/07/17 18:37 98 21 10/07/17 17:39 90 18 91/61 (71) 97 Room Air 10/07/17 17:00 84 95/59 (71) 10/07/17 16:34 97 Room Air 10/07/17 16:13 95.5 93 17 113/78 (90) 97 Physical Exam Narrative GENERAL: 37-year-old gcs 9 (eye 2, verbal 2, motor 5) SKIN: Warm and dry. HEAD: Atraumatic. Normocephalic. EYES: Pupils equal and round. No scleral icterus. No injection or drainage. ENT: No nasal bleeding or discharge. Mucous membranes pink and moist. The gag reflex is intact. NECK: Trachea midline. No JVD. CARDIOVASCULAR: S1-S2 regular no gallop or murmur RESPIRATORY: Breath sounds are present bilaterally. GASTROINTESTINAL: Abdomen soft, non-tender, nondistended. Hepatic and splenic margins not palpable. MUSCULOSKELETAL: Extremities without clubbing, cyanosis, or edema. No obvious deformities. NEUROLOGICAL: GCS 9 as noted. The patient localizes to pain pushing away the examiner's hand upon arrival. Laboratory Laboratory Tests Test 10/07/17 16:20 10/07/17 16:30 10/07/17 16:33 10/07/17 19:30 White Blood Count 7.7 Red Blood Count 4.24 Hemoglobin 13.7 Hematocrit 39.9 Mean Corpuscular Volume 94.1 Mean Corpuscular Hemoglobin 32.3 Mean Corpuscular Hemoglobin Concent 34.4 Red Cell Distribution Width 14.0 Platelet Count 243 Mean Platelet Volume 7.9 Neutrophils (%) (Auto) 60.8 Lymphocytes (%) (Auto) 31.2 Monocytes (%) (Auto) 5.1 Eosinophils (%) (Auto) 2.2 Basophils (%) (Auto) 0.7 Neutrophils # (Auto) 4.7 Lymphocytes # (Auto) 2.4 Monocytes # (Auto) 0.4 Eosinophils # (Auto) 0.2 Basophils # (Auto) 0.1 CBC Comment DIFF FINAL Differential Comment Blood Urea Nitrogen 11 Creatinine 0.51 Random Glucose 94 Total Protein 7.1 Albumin 3.4 Calcium Level 7.8 Alkaline Phosphatase 88 Aspartate Amino Transf (AST/SGOT) 108 Alanine Aminotransferase (ALT/SGPT) 420 Total Bilirubin 0.4 Sodium Level 146 Potassium Level 4.1 Chloride Level 115 Carbon Dioxide Level 23.6 Anion Gap 7 Estimat Glomerular Filtration Rate 134 Salicylates Level LESS THAN 1.7 Acetaminophen Level LESS THAN 2.0 Ethyl Alcohol Level 262 Urine Opiates Screen NEG Urine Barbiturates Screen NEG Urine Amphetamines Screen NEG Urine Benzodiazepines Screen POS Urine Cocaine Screen POS Urine Cannabinoids Screen NEG Blood Gas Puncture Site RT RADIAL Blood Gas Patient Temperature 98.6 Blood Gas HCO3 22 Blood Gas Base Excess -3.5 Blood Gas Oxygen Saturation 94 Arterial Blood pH 7.29 Arterial Blood Partial Pressure CO2 47 Arterial Blood Partial Pressure O2 91 Arterial Blood Oxygen Content 18.2 Arterial Blood Carboxyhemoglobin 1.7 Arterial Blood Methemoglobin 0.6 Blood Gas Hemoglobin 13.7 Oxygen Delivery Device ROOM AIR Blood Gas Inspired Oxygen 21 Result Diagram: 10/07/17 1620 10/07/17 1620 Imaging Last Impressions Head CT 10/07/17 1850 Signed Impressions: Service Date/Time: Saturday, October 07, 2017 19:01 - CONCLUSION: Normal noncontrast head CT. Mamadou Barcenas MD Chest X-Ray 10/07/17 1616 Signed Impressions: Service Date/Time: Saturday, October 07, 2017 16:20 - CONCLUSION: No evidence of acute cardiopulmonary disease. MD Chau Warei VTE Risk Assessment Caprini VTE Risk Assessment: Mod/High Risk (score >= 2) Caprini Risk Assessment Model Point Value = 1 Point Value = 2 Point Value = 3 Point Value = 5 Age 41-60 Minor surgery BMI > 25 kg/m2 Swollen legs Varicose veins or History of unexplained or recurrent spontaneous Oral contraceptives or hormone replacement Sepsis (< 1 month) Serious lung disease, including pneumonia (< 1 month) Abnormal pulmonary function Acute myocardial infarction Congestive heart failure (< 1 month) History of inflammatory bowel disease Medical patient at bed rest Age 61-74 Arthroscopic surgery Major open surgery (> 45 min) Laparoscopic surgery (> 45 min) Malignancy Confined to bed (> 72 hours) Immobilizing plaster cast Central venous access Age >= 75 History of VTE Family history of VTE Factor V Leiden Prothrombin [id number] Lupus anticoagulant Anticardiolipin antibodies Elevated serum homocysteine Heparin-induced thrombocytopenia Other congenital or acquired thrombophilia Stroke (< 1 month) Elective arthroplasty Hip, pelvis, or leg fracture Acute spinal cord injury (< 1 month) Prophylaxis Regimen Total Risk Factor Score Risk Level Prophylaxis Regimen 0-1 Low Early ambulation 2 Moderate Order ONE of the following: *Sequential Compression Device (SCD) *Heparin 5000 units SQ BID 3-4 Higher Order ONE of the following medications: *Heparin 5000 units SQ TID *Enoxaparin/Lovenox 40 mg SQ daily (WT < 150 kg, CrCl > 30 mL/min) *Enoxaparin/Lovenox 30 mg SQ daily (WT < 150 kg, CrCl > 10-29 mL/min) *Enoxaparin/Lovenox 30 mg SQ BID (WT < 150 kg, CrCl > 30 mL/min) AND/OR *Sequential Compression Device (SCD) 5 or more Highest Order ONE of the following medications: *Heparin 5000 units SQ TID (Preferred with Epidurals) *Enoxaparin/Lovenox 40 mg SQ daily (WT < 150 kg, CrCl > 30 mL/min) *Enoxaparin/Lovenox 30 mg SQ daily (WT < 150 kg, CrCl > 10-29 mL/min) *Enoxaparin/Lovenox 30 mg SQ BID (WT < 150 kg, CrCl > 30 mL/min) AND *Sequential Compression Device (SCD) Assessment and Plan Assessment and Plan 37-year-old female with: Encephalopathy secondary to benzodiazepine/cocaine overdose Substance abuse Alcohol intoxication Plan: Neuro: Follow neuro status. Avoid sedatives and narcotics. Head CT negative for bleed. Psychiatric consult in a.m. once neurologic status improved. Cardiovascular: IV hydration, watch for hypotension. Pulmonary: Supplemental O2 as needed. Currently protecting airway. If respiratory status on neuro status worsens may require endotracheal intubation. GI/liver: Nothing by mouth for now Renal/: IV hydration, strict intake output, monitor and replete electrolytes, follow BUN creatinine. ID: No antibiotics indicated at this time. Endocrine: Watch for hyperglycemia, SSI for glycemic control if needed. Heme: Follow CBC Prophylaxis: SCDs, Lovenox for DVT prophylaxis. Condition critical. Time spent on critical care excluding procedures 60 minutes Adam Flores MD Oct 07, 2017 21:36
[2017-10-08] VITALS (12 sets, daily range): BP systolic 96–122; BP diastolic 59–82; PULSE 70–93; RESP 18–32; TEMP 97.8–98.5; O2SAT 77–100
[2017-10-08] MEDS: SODIUM CHLOR 0.9% 1000 ML INJ 1,000 ML IV SCH (02:49)
[2017-10-08] MEDS ORDERED: HALOPERIDOL LACTATE 5 MG/ML AMP IV ONE (03:00)
[2017-10-08] MEDS ORDERED: CHLORHEXIDINE GLUCONATE 2 % 1 PACK (2 CLOTHS) TOP SCH (04:00)
[2017-10-08 04:04] LABS: AUTOMATED NEUTROPHIL # 2.4 TH/MM3 (1.8-7.7); BASOPHIL % 0.4 % (0.0-2.0); EOSINOPHIL # 0.2 TH/MM3 (0-0.4); EOSINOPHIL % 3.9 % (0.0-4.0); HEMATOCRIT 34.4 % (35.0-46.0); HEMOGLOBIN 11.7 GM/DL (11.6-15.3); LYMPH % 43.8 % (9.0-44.0); LYMPHOCYTE # 2.3 TH/MM3 (1.0-4.8); MEAN CELL VOLUME 93.9 FL (80.0-100.0); MEAN CORPUSCULAR HGB CONC 34.1 % (32.0-36.0); MEAN PLATELET VOLUME 7.8 FL (7.0-11.0); MONO % 5.9 % (0.0-8.0); MONOCYTE # 0.3 TH/MM3 (0-0.9); PLATELET COUNT 197 TH/MM3 (150-450); RED BLOOD COUNT 3.67 MIL/MM3 (4.00-5.30); RED CELL DISTRIBUTION WIDTH 14.2 % (11.6-17.2); WHITE BLOOD COUNT 5.3 TH/MM3 (4.0-11.0)
[2017-10-08 04:23] LABS: ALBUMIN 3.1 GM/DL (3.4-5.0); AST (GOT) 106 U/L (15-37); BLOOD UREA NITROGEN 10 MG/DL (7-18); CALCIUM 7.6 MG/DL (8.5-10.1); CHLORIDE 112 MEQ/L (98-107); CREATININE 0.49 MG/DL (0.50-1.00); GLOMERULAR FILTRATION RATE 141 ML/MIN (>89); GLUCOSE,RANDOM 80 MG/DL (74-106); MAGNESIUM 1.8 MG/DL (1.5-2.5); SODIUM (NA) 145 MEQ/L (136-145)
[2017-10-08 04:27] LABS: ALKALINE PHOSPHATASE 72 U/L (45-117); ALT (GPT) 354 U/L (10-53); PHOSPHORUS 2.1 MG/DL (2.5-4.9); TOTAL BILIRUBIN ADULT 0.6 MG/DL (0.2-1.0)
[2017-10-08] MEDS: FAMOTIDINE 20 MG/2 ML VIAL IV PUSH SCH (08:40)
[2017-10-08] MEDS: D5-1/2 NS + KCL 20 MEQ INJ 1,000 ML IV SCH (08:40)
[2017-10-08] MEDS: SODIUM CHLORIDE 0.9% FLUSH 10 ML FLUSH IV FLUSH SCH (08:41)
[2017-10-08] MEDS: DOCUSATE SODIUM 50 MG/SENNA 8.6 MG TAB PO SCH (08:41)
[2017-10-08] MEDS ORDERED: LACTATED RINGER'S 1000 ML INJ 1,000 ML IV ONE (09:45)
--- NOTE | 2017-10-08 09:47 | HHI.CCPN ---
Subjective Remarks/Hospital Course Hospital Course: 37 y/o female who was found unresponsive on a hotel floor. She was noted to have an empty Xanax bottle near her which had been filled 14 days ago with 90 tablets. EMS gave 0.8 mg Narcan with no significant improvement. She had a GCS of 9 the field per ER documentation. Patient was evaluated in the ER and was maintaining her heart rate and blood pressure and O2 sats on 2 L nasal cannula. She was accepted for admission by critical care medicine service. When I evaluated the patient in the ER she was drowsy though arousable, disoriented and confused not following commands. History was obtained by reviewing records and discussion with ER physician. Tox screen was positive for benzodiazepine and cocaine. She was also positive for EtOH. Subjective: 10/08: clinically improving. awake and alert. follows commands. says she was sad about not being able to provide financially for her grandma. psych consult pending. medically cleared. Objective Vital Signs Date Time Temp Pulse Resp B/P (MAP) Pulse Ox O2 Delivery O2 Flow Rate FiO2 10/08/17 06:00 76 10/08/17 04:00 98.4 21 111/79 (90) 92 10/07/17 18:50 Room Air 10/07/17 18:37 21 Intake and Output 10/08/17 10/08/17 10/09/17 08:00 16:00 00:00 Intake Total 986 ml Output Total 1600 ml Balance -614 ml Result Diagram: 10/08/17 0337 10/08/17 0327 Other Results Laboratory Tests Test 10/07/17 16:33 Blood Gas Puncture Site RT RADIAL Blood Gas Patient Temperature 98.6 Blood Gas HCO3 22 mmol/L (22-26) Blood Gas Base Excess -3.5 mmol/L (-2-2) Blood Gas Oxygen Saturation 94 % (90-100) Arterial Blood pH 7.29 (7.380-7.420) Arterial Blood Partial Pressure CO2 47 mmHg (38-42) Arterial Blood Partial Pressure O2 91 mmHG (61-120) Arterial Blood Oxygen Content 18.2 Vol % (12.0-20.0) Arterial Blood Carboxyhemoglobin 1.7 % (0-4) Arterial Blood Methemoglobin 0.6 % (0-2) Blood Gas Hemoglobin 13.7 G/DL (12.0-16.0) Oxygen Delivery Device ROOM AIR Blood Gas Inspired Oxygen 21 % Imaging Last Impressions Head CT 10/07/17 1850 Signed Impressions: Service Date/Time: Saturday, October 07, 2017 19:01 - CONCLUSION: Normal noncontrast head CT. Mamadou Barcenas MD Chest X-Ray 10/07/17 1616 Signed Impressions: Service Date/Time: Saturday, October 07, 2017 16:20 - CONCLUSION: No evidence of acute cardiopulmonary disease. Mamadou Barcenas MD Objective Remarks Narrative GENERAL: 37-year-old female, lying in bed, sad affect. SKIN: Warm and dry. HEAD: Atraumatic. Normocephalic. EYES: Pupils equal and round. No scleral icterus. No injection or drainage. ENT: No nasal bleeding or discharge. Mucous membranes pink and moist. NECK: Trachea midline. No JVD. CARDIOVASCULAR: normal rate, regular rhythm. sinus by tele. RESPIRATORY: unlabored. equal chest rise. room air. GASTROINTESTINAL: Abdomen soft, non-tender, nondistended. MUSCULOSKELETAL: Extremities without clubbing, cyanosis, or edema. No obvious deformities. NEUROLOGICAL: GCS 15. awake, alert, follows commands. A/P Assessment and Plan 37-year-old female with resolved toxic encephalopathy secondary to intentional overdose. psych consult pending. medically cleared for inpatient psychiatric evaluation. LFTs slightly elevated, but given risk behavior, suspect this is secondary to either shock liver or hepatitis. stable to leave ICU, and medically cleared to discharge to psych facility. Toxic Encephalopathy secondary to benzodiazepine/cocaine overdose - resolved. Substance abuse Alcohol intoxication- resolved Intentional overdose Suicidal ideation Elevated liver enzymes Plan: - check hepatitis panel - valium 5mg po q8h prn for withdraw symptoms or anxiety - regular diet - lovenox, scds - psych consult - medically cleared for inpatient psych services. Ravinder Maldonado MD Oct 08, 2017 09:47
[2017-10-08] MEDS ORDERED: ENOXAPARIN SODIUM 40 MG/0.4 ML SYRINGE SQ SCH (10:00)
[2017-10-08] MEDS ORDERED: DIAZEPAM 5 MG TAB PO PRN (10:00)
[2017-10-08 14:46] LABS: HEPATITIS A AB IGM NEGATIVE (NEGATIVE); HEPATITIS B CORE AB IGM NEGATIVE (NEGATIVE); HEPATITIS B SURFACE ANTIGEN NEGATIVE (NEGATIVE); HEPATITIS C AB IgG REACTIVE (NEGATIVE)
--- NOTE | 2017-10-08 15:08 | EKG ---
Date Performed: 10/07/2017 Time Performed: 16:13:10 PTAGE: 37 years EKG: Sinus rhythm Since previous tracing, no significant change noted NORMAL ECG PREVIOUS TRACING : 04/15/2017 09.15 DOCTOR: Carlos Bruce Interpretating Date/Time 10/08/2017 15:08:25
== END 2017-10-08 15:30 | DRG 917 ==
LOC: NEPC 16:10 → NEDA 18:00 → HIME 19:40
PROVIDERS: ADMIT Internal Medicine Critical Care Medicine; ATTEND Internal Medicine Critical Care Medicine
DX: T42.4X2A Poisoning by benzodiazepines, intentional self-harm, initial encounter (principal); G92 Toxic encephalopathy; I10 Essential (primary) hypertension; F32.9 Major depressive disorder, single episode, unspecified; F41.9 Anxiety disorder, unspecified; F19.10 Other psychoactive substance abuse, uncomplicated; R68.0 Hypothermia, not associated with low environmental temperature; R40.2433 Glasgow coma scale score 3-8, at hospital admission; T40.5X2A Poisoning by cocaine, intentional self-harm, initial encounter; T51.0X2A Toxic effect of ethanol, intentional self-harm, initial encounter; R09.02 Hypoxemia; R74.8 Abnormal levels of other serum enzymes; F10.129 Alcohol abuse with intoxication, unspecified; Y92.59 Other trade areas as the place of occurrence of the external cause; Y90.8 Blood alcohol level of 240 mg/100 ml or more; Z72.0 Tobacco use
CPT/HCPCS: 36600; 70450; 71045; 80053; 80074; 80307; 82805; 82948; 83735; 84100; 85025; 87086; 87641; 93005; 96361; 96374; J1630; J1650; J2310; J3480; J7030; J7120

== ENCOUNTER 2017-10-08 15:20 | Inpatient (IN) | payer SELFPAY ==
[~2017-10-08] VITALS: Ht 162.6 cm; Wt 62.2 kg
[2017-10-08] MEDS ORDERED: LORazepam 2 MG/ML VIAL IM PRN (16:45)
[2017-10-08] MEDS ORDERED: MAGNESIUM HYDROXIDE SUSP 30 ML CUP PO PRN (16:45)
[2017-10-08] MEDS ORDERED: ALUMINUM/MAGNESIUM/SIMETH 30 ML CUP PO PRN (16:45)
[2017-10-08] MEDS ORDERED: LORazepam 1 MG TAB PO PRN (16:45)
[2017-10-08 16:48] VITALS: BP 119/76; PULSE 86; RESP 15; TEMP 97.5; O2SAT 99
--- NOTE | 2017-10-08 16:53 | HHI.HP ---
Provisional Diagnosis Admission Date Oct 08, 2017 at 15:53 J[place] I. Adjustment disorder with mixed disturbance of emotion and conduct Certification of Person's Competence To Provide Express and Informed Consent I have personally examined Shazia Kiser , a person being served at [facility] on, Oct 08, 2017 16:48. Express and informed consent means consent voluntarily given in writing, by a competent person, after sufficient explanation and disclosure of the subject matter involved to enable the person to make a knowing and willful decision without any element of force, fraud, deceit, duress, or other form of constraint or coercion. This person is 18 years of age or older, is not now known to be incompetent to consent to treatment with a guardian advocate, and does not have a health care surrogate or proxy currently making medical treatment decisions. I have found this person to be one of the following: [X] Competent to provide express and informed consent, as defined above, for voluntary admission to this facility and is competent to provide express and informed consent for treatment. He/she has the consistent capacity to make well reasoned, willful, and knowing decisions concerning his or her medical or mental health treatment. The person fully and consistently understands the purpose of the admission for examination/placement and is fully capable of personally exercising all rights assured [place] Incompetent to provide express and informed consent to voluntary admission, and this is incompetent to provide express and informed consent to treatment. The person must be transferred to involuntary status and a petition for a guardian advocate filed with the Circuit Court. [] Refusing to provide express and informed consent to voluntary admission but is competent to provide express and informed consent for treatment. The person must be discharged or transferred to involuntary status. Form shall be completed within 24 hours of a person's arrival at the receiving facility and filed in the clinical record of each person: 1. Admitted on a voluntary basis 2. Permitted to provide express and informed consent to his/her own treatment 3. Allowed to transfer from involuntary to voluntary status 4. Prior to permitting a person to consent to his or her own treatment after having been previously found incompetent to consent to treatment. History of Present Illness Capacity: Has Capacity HPI 37-year-old female overdosed on multiple Xanax tablets while staying by herself in a hotel room. Patient states she was upset after an argument because she wanted to go to [place] to visit her mother. Either her mother or her father, both of whom work, were unwilling to provide money and support for this trip to [place]. The patient therefore purposely overdosed on the medication. She continues to have multiple symptoms of depressed mood, anhedonia, feelings of hopelessness and helplessness, diminished self-esteem, social withdrawal, sleep disturbance, irritability, concentration deficits, diminished energy, etc. She also admits to suicidal ideation. According to the nurse, the patient attempted to commit suicide approximately one month ago as well. Review of Systems Psychiatric: COMPLAINS OF: Anxiety, Depression, Suicidal Ideation Except as stated in HPI: all other systems reviewed are Neg Past Psych History Psychological trauma history Denied for psychological trauma. Patient reports she has a history of bipolar disorder. This physician is uncertain as to the accuracy of that diagnosis. Violence risk - others (6 mos) Minimal to moderate. Violence risk - self (6 mos) High Substance Abuse History Drugs/Alcohol past 12 months Patient has apparently been abusing benzodiazepines. She has a history of drug abuse and at one point was on methadone maintenance. She has supposedly been in recovery for the last 2 years. Past Family Social History Coded Allergies: No Known Allergies (Verified Allergy, Unknown, 10/07/17) Active Scripts Chlordiazepoxide HCl (Chlordiazepoxide HCl) 25 Mg Capsule, 25 MG PO Q12HR Y for WITHDRAWAL, #9 Prov:Ayaz Ospina MD 04/15/17 Reported Medications Alprazolam (Xanax) 1 Mg Tab, 1 MG PO Q8H for ANXIETY, TAB 0 Refills 04/15/17 Amlodipine (Amlodipine) 5 Mg Tab, 5 MG PO DAILY for Blood Pressure Management, # 30 TAB 0 Refills 04/15/17 Current Medications Medications (Trade) Dose Ordered Sig/Rani Route Start Time Stop Time Status Last Admin (Ativan) 1 mg Q6H PRN PO 10/08/17 16:45 (Ativan Inj) 1 mg Q6H PRN IM 10/08/17 16:45 (Tylenol) 650 mg Q4H PRN PO 10/08/17 16:45 (Milk Of Magnesia Liq) 30 ml DAILY PRN PO 10/08/17 16:45 (Mag-Al Plus Susp Liq) 30 ml Q6H PRN PO 10/08/17 16:45 Family Psych History Positive for mood and anxiety disorders. Social History Patient does have parents who live locally and in [place] (father and mother respectively). Patient is intermittently employed and is certainly capable of employment. She does have ongoing financial stress. Her family however is not wanting to enable her behavior and that this point have distanced themselves from the patient. Mother works as a nurse in [place]. Patient is not and has no children. She does have an extensive history of substance abuse. Patient's Strengths (min. 2) Verbal and has access to healthcare. Physical Exam GENERAL: SKIN: Warm and dry. HEAD: Normocephalic. EYES: No scleral icterus. No injection or drainage. NECK: Supple, trachea midline. No JVD or lymphadenopathy. CARDIOVASCULAR: Regular rate and rhythm without murmurs, gallops, or rubs. RESPIRATORY: Breath sounds equal bilaterally. No accessory muscle use. GASTROINTESTINAL: Abdomen soft, non-tender, nondistended. MUSCULOSKELETAL: No cyanosis, or edema. BACK: Nontender without obvious deformity. No CVA tenderness. Mental Status Examination Appearance: Appropriate Consciousness: Alert Orientation: x4 Motor Activity: Normal gait Speech: Unremarkable Language: Adequate Fund of Knowledge: Adequate Attention and Concentration: Adequate Memory: Unremarkable Mood: Sad, Anxious Affect: Sad, Anxious Thought Process & Associations: Intact Thought Content: Appropriate Hallucination Type: None Delusion Type: None Suicidal Ideation: Yes Suicidal Plan: Yes Suicidal Intention: Yes Homicidal Ideation: No Homicidal Plan: No Homicidal Intention: No Insight: Fair Judgment: Impulsive Assessment & Plan Problem List: (1) Adjustment disorder with mixed disturbance of emotions and conduct ICD Codes: F43.25 - Adjustment disorder with mixed disturbance of emotions and conduct Assessment & Plan Estimated LOS: days. 37-year-old female Beasley acted by this physician after she overdosed on an unknown but significant amount of Xanax causing a loss of consciousness and respiratory depression. Patient admits to abusing Xanax and purposely overdosing on Xanax. She has a history of suicide attempt recently. She is felt to be at high risk for self-harm and is therefore being admitted to psychiatry for further evaluation and treatment. This physician has ordered a CBC and comprehensive metabolic panel to determine if any infectious process or metabolic process might currently be causing or contributing to her depression and suicide attempt. Also ordered was thyroid stimulating hormone level, vitamin B-12 level and vitamin D level as deficiencies in these areas could also cause or contribute to her depression. This physician has also placed the patient on both Ativan and Librium to prevent any dangerous withdrawal from benzodiazepines as the patient has been taking Xanax inappropriately for significant period of time. Patient is also at risk for methadone withdrawal and this physician has requested a hospitalist consult to assist with medical management and the patient's history of hypertension. An EKG as ordered to determine the patient's cardiac conduction status, which may be adversely affected by psychotropic medicines. This case was discussed with nurse Peralta. Case management will also be involved to assist with information gathering and disposition planning. Carroll Dacosta MD Oct 08, 2017 16:52
[2017-10-08] MEDS ORDERED: chlordiazePOXIDE 25 MG CAP PO PRN (17:00)
[2017-10-08] MEDS: ACETAMINOPHEN 325 MG TAB PO PRN (17:19)
[2017-10-08 21:00] VITALS: BP 136/90; PULSE 80; RESP 18; TEMP 98
[2017-10-08] MEDS: CYCLOBENZAPRINE HCL 10 MG TAB PO PRN (21:55)
[2017-10-08] MEDS ORDERED: QUEtiapine FUMARATE 25 MG TAB PO PRN (22:00)
[2017-10-08] MEDS ORDERED: traZODone HCL 100 MG TAB PO PRN (22:00)
--- NOTE | 2017-10-09 02:17 | PD.CONS ---
HPI Service [facility] Consult Requested By Olesya Reason for Consult Benzo withdrawal precautions Primary Care Physician Unknown Diagnoses: History of Present Illness 37 year old female with a history of depression, opiate abuse, hep C and anxiety is being treated in the Psych department after an intentional xanax OD. Patient was monitored prior in the ICU after being found unresponsive in a hotel room after taking an unknown amount of Xanax. [facility] was consulted for management of possible benzo withdrawal. Patient seen and examined at bedside. She is sleepy but able to answer questions. She denies any heart palpitations, tremors or anxiety. Prior to assessment she was given Seroquel and trazodone. She denies any chest pain, or sob. Review of Systems Except as stated in HPI: all other systems reviewed are Neg Past Family Social History Allergies: Coded Allergies: No Known Allergies (Verified Allergy, Unknown, 10/07/17) Past Medical History Depression Anxiety HTN Past Surgical History Patient denies any surgical history Reported Medications Reported Meds & Active Scripts Active Chlordiazepoxide HCl 25 Mg Capsule 25 Mg PO Q12HR PRN Reported Xanax (Alprazolam) 1 Mg Tab 1 Mg PO Q8H Amlodipine (Amlodipine Besylate) 5 Mg Tab 5 Mg PO DAILY Active Ordered Medications Current Medications Medications (Trade) Dose Ordered Sig/Rani Route Start Time Stop Time Status Last Admin (Ativan) 1 mg Q6H PRN PO 10/08/17 16:45 10/08/17 18:46 (Ativan Inj) 1 mg Q6H PRN IM 10/08/17 16:45 (Tylenol) 650 mg Q4H PRN PO 10/08/17 16:45 10/08/17 17:19 (Milk Of Magnesia Liq) 30 ml DAILY PRN PO 10/08/17 16:45 (Mag-Al Plus Susp Liq) 30 ml Q6H PRN PO 10/08/17 16:45 (Norvasc) 5 mg DAILY PO 10/09/17 09:00 (Flexeril) 10 mg TID PRN PO 10/08/17 21:45 10/08/17 21:55 (Desyrel) 100 mg HS PRN PO 10/08/17 22:00 10/08/17 21:55 (SEROquel) 100 mg HS PRN PO 10/08/17 22:00 Family History Patient denies any family history Social History She states she occasionally smokes and drinks. History of opiate abuse, currently on methadone Physical Exam Vital Signs Vital Signs Date Time Temp Pulse Resp B/P (MAP) Pulse Ox O2 Delivery O2 Flow Rate FiO2 10/08/17 21:00 98.0 80 18 136/90 (105) 10/08/17 16:48 97.5 86 15 119/76 (90) 99 Physical Exam GENERAL: This is a well-nourished, sleepy patient in no apparent distress. SKIN: No rashes, ecchymoses or lesions. Cool and dry. HEAD: Atraumatic. Normocephalic. EYES: Pupils equal round and reactive. Extraocular motions intact. ENT: Nose without bleeding, purulent drainage or septal hematoma. Airway patent. NECK: Trachea midline. No JVD or lymphadenopathy. CARDIOVASCULAR: Regular rate and rhythm without murmurs, gallops, or rubs. RESPIRATORY: Clear to auscultation. Breath sounds equal bilaterally. No wheezes , rales, or rhonchi. GASTROINTESTINAL: Abdomen soft, non-tender, nondistended. No guarding. MUSCULOSKELETAL: Extremities without clubbing, cyanosis, or edema. No calf tenderness. NEUROLOGICAL: Sleepy and alert. No tremors noted. Motor and sensory grossly within normal limits. Normal speech. Assessment and Plan Problem List: (1) Benzodiazepine withdrawal with complication ICD Code: F13.239 - Sedative, hypnotic or anxiolytic dependence with withdrawal , unspecified Status: Acute Assessment and Plan 37 year old female with a history of depression, hep C and anxiety is being treated in the Psych department after an intentional xanax OD. Depression disorder -Managed by psychiatry Benzodiazepine withdrawal, possible, patient took an unknown amount of Xanax 2 days ago, vitals currently stable -Monitor Vitals -Monitor for withdrawal symptoms, tremors, tachycardia, heart palpitations or seizures -Ativan if needed -Cont Seroquel at bedtime -Will transfer to medical psych if needed HTN, chronic -Cont home medication Norvasc -Monitor vitals DVT prophylaxis: Encourage ambulation Discussed Condition With Patient and Wendie Souza Oct 09, 2017 02:17
[2017-10-09 05:40] VITALS: BP 98/57; PULSE 81; RESP 16; TEMP 97.6; O2SAT 98
[2017-10-09 08:52] VITALS: BP 98/57; PULSE 81; RESP 18; TEMP 97.6; O2SAT 98
[2017-10-09] MEDS: amLODIPine BESYLATE 5 MG TAB PO SCH (09:00)
[2017-10-09] MEDS ORDERED: LORazepam 2 MG TAB PO PRN (10:45)
[2017-10-09] MEDS ORDERED: LORazepam 2 MG/ML VIAL IM PRN ×4 (10:45)
[2017-10-09] MEDS ORDERED: FLUMAZENIL 0.5 MG/5 ML VIAL IV PUSH PRN (10:45)
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
[2017-10-09 11:29] LABS: AUTOMATED NEUTROPHIL # 2.8 TH/MM3 (1.8-7.7); BASOPHIL % 0.9 % (0.0-2.0); EOSINOPHIL # 0.2 TH/MM3 (0-0.4); EOSINOPHIL % 3.3 % (0.0-4.0); HEMATOCRIT 39.3 % (35.0-46.0); HEMOGLOBIN 13.5 GM/DL (11.6-15.3); LYMPH % 32.6 % (9.0-44.0); LYMPHOCYTE # 1.6 TH/MM3 (1.0-4.8); MEAN CELL VOLUME 93.5 FL (80.0-100.0); MEAN CORPUSCULAR HEMOGLOBIN 32.1 PG (27.0-34.0); MEAN CORPUSCULAR HGB CONC 34.4 % (32.0-36.0); MEAN PLATELET VOLUME 8.3 FL (7.0-11.0); MONO % 6.2 % (0.0-8.0); MONOCYTE # 0.3 TH/MM3 (0-0.9); PLATELET COUNT 247 TH/MM3 (150-450); RED BLOOD COUNT 4.21 MIL/MM3 (4.00-5.30); RED CELL DISTRIBUTION WIDTH 13.7 % (11.6-17.2); WHITE BLOOD COUNT 4.9 TH/MM3 (4.0-11.0)
--- NOTE | 2017-10-09 11:43 | HHI.PR ---
Subjective Remarks Follow-up on Xanax overdose, opiate abuse, hep C, depression and anxiety. Patient seen ambulating in psych halls, she continues to report anxiety. Repots that she was on Methadone for 7 years due to substance abuse along with Xanax for anxiety. She tells me she was taken off Methadone a week before this past Nitin and she continued her Xanax for anxiety, however her anxiety continued. She tells me that the reason why she took the Xanax was because she was feeling frustrated and when the police was called she just decided to take all the Xanax she had. At the time of my examination she denies feeling shaky although continues to complain of anxiety. She denies any fevers, chills, nausea or vomiting. She repots that she has been having soft stools for the past several weeks since she has been off of her Methadone. She repots taking a Probiotic at home and this would help with stool consistency. Objective Vitals Vital Signs Date Time Temp Pulse Resp B/P (MAP) Pulse Ox O2 Delivery O2 Flow Rate FiO2 10/09/17 08:52 97.6 81 18 98/57 (71) 98 10/09/17 05:40 97.6 81 16 98/57 (71) 98 10/08/17 21:00 98.0 80 18 136/90 (105) 10/08/17 16:48 97.5 86 15 119/76 (90) 99 I/O 10/08/17 10/08/17 10/08/17 10/09/17 10/09/17 10/09/17 07:00 15:00 23:00 07:00 15:00 23:00 Intake Total 240 ml Balance 240 ml Intake Oral 240 ml Result Diagram: 10/09/17 1040 Objective Remarks GENERAL: This is a well-nourished, female in no apparent distress, ambulating. SKIN: No rashes, ecchymoses or lesions. Cool and dry. HEAD: Atraumatic. Normocephalic. EYES: Pupils equal round and reactive. Extraocular motions intact. ENT: Nose without bleeding, purulent drainage. Airway patent. NECK: Trachea midline. No JVD. CARDIOVASCULAR: Regular rate and rhythm without murmurs, gallops, or rubs. RESPIRATORY: Clear to auscultation. Breath sounds equal bilaterally. No wheezes , rales, or rhonchi. GASTROINTESTINAL: Abdomen soft, non-tender, nondistended. No guarding. MUSCULOSKELETAL: Extremities without clubbing, cyanosis, or edema. NEUROLOGICAL: Awake alert and oriented x3. Very mild tremors noted. Motor and sensory grossly within normal limits. Normal speech. A/P Problem List: (1) Benzodiazepine withdrawal with complication ICD Code: F13.239 - Sedative, hypnotic or anxiolytic dependence with withdrawal , unspecified Status: Acute Assessment and Plan 37 year old female with a history of depression, hep C and anxiety is being treated in the Psych department after an intentional xanax OD. Depression disorder -Managed by psychiatry - Continues to complain of anxiety Benzodiazepine withdrawal, possible, patient took an unknown amount of Xanax 2 days ago, vitals currently stable -Monitor Vitals -Monitor for withdrawal symptoms, tremors, tachycardia, heart palpitations or seizures -Ativan if needed -Cont Seroquel at bedtime -Will transfer to medical psych if needed - Psych may be adding Librium to withdraws HTN, chronic -Cont home medication Norvasc - BP stable, continue trending Loose stools - Likely due to discontinuation of Methadone - Add Probiotic DVT prophylaxis: Patient ambulating Discussed with nurse. Feliciano Mccoy Oct 09, 2017 11:43
[2017-10-09] MEDS: LORazepam 1 MG TAB PO PRN ×2 (12:22→21:17)
[2017-10-09 12:28] LABS: ALBUMIN 3.3 GM/DL (3.4-5.0); ALKALINE PHOSPHATASE 78 U/L (45-117); ALT (GPT) 293 U/L (10-53); AST (GOT) 70 U/L (15-37); BICARBONATE 25.2 MEQ/L (21.0-32.0); BLOOD UREA NITROGEN 12 MG/DL (7-18); CALCIUM 8.8 MG/DL (8.5-10.1); CHLORIDE 105 MEQ/L (98-107); GLUCOSE,RANDOM 108 MG/DL (74-106); SODIUM (NA) 139 MEQ/L (136-145); TOTAL BILIRUBIN ADULT 0.4 MG/DL (0.2-1.0)
[2017-10-09 15:06] LABS: CHOLESTEROL 166 MG/DL (120-200); CHOLESTEROL/ HDL RATIO 2.17 RATIO; HDL CHOLESTEROL 76.4 MG/DL (40.0-60.0); LDL CHOLESTEROL 52 MG/DL (0-99); TRIGLYCERIDES 188 MG/DL (42-150)
[2017-10-09 17:54] VITALS: BP 124/76; PULSE 92; RESP 17; TEMP 97.8; O2SAT 98
[2017-10-09] MEDS: LACTOBACILLUS ACIDOPHILUS TAB PO SCH (20:36)
[2017-10-09] MEDS ORDERED: OLANZapine 5 MG TAB PO SCH (21:00)
[2017-10-09] MEDS: traZODone HCL 100 MG TAB PO PRN (21:53)
[2017-10-10 06:54] VITALS: BP 105/57; PULSE 76; RESP 18; TEMP 98.1
[2017-10-10] MEDS: LACTOBACILLUS ACIDOPHILUS TAB PO SCH ×2 (08:18→20:58)
[2017-10-10] MEDS: amLODIPine BESYLATE 5 MG TAB PO SCH (08:18)
[2017-10-10 09:18] VITALS: BP 116/56; PULSE 83; RESP 16; TEMP 97.4; O2SAT 99
--- NOTE | 2017-10-10 09:50 | EKG ---
Date Performed: 10/09/2017 Time Performed: 18:36:37 PTAGE: 37 years EKG: Sinus rhythm NORMAL ECG PREVIOUS TRACING : 10/07/2017 16.13 DOCTOR: Prabhakar Gallardo Interpretating Date/Time 10/10/2017 09:50:02
[2017-10-10 10:35] VITALS: BP 109/73; PULSE 87; RESP 16; TEMP 97.6; O2SAT 99
--- NOTE | 2017-10-10 12:48 | HHI.PR ---
Subjective Remarks Follow-up visit on Xanax overdose, opiate abuse, hep C, depression and anxiety. Patient seen and examined sitting up in day room coloring. She reports she has been doing well and her only complaint today is of restless legs. She states that she will take something [id number] for her restless legs. She denies any fevers, chills, nausea, vomiting, diarrhea, or headache. Spoke to nurse who states patient had an episode this morning where she threw herself on the floor because nurse did not administer medications fast enough. Patient was administered Ativan at that time. Objective Vitals Vital Signs Date Time Temp Pulse Resp B/P (MAP) Pulse Ox O2 Delivery O2 Flow Rate FiO2 10/10/17 10:35 97.6 87 16 109/73 (85) 99 10/10/17 09:18 97.4 83 16 116/56 (76) 99 10/10/17 06:54 98.1 76 18 105/57 (73) 10/09/17 17:54 97.8 92 17 124/76 (92) 98 I/O 10/09/17 10/09/17 10/09/17 10/10/17 10/10/17 10/10/17 07:00 15:00 23:00 07:00 15:00 23:00 Intake Total 480 ml 240 ml Balance 480 ml 240 ml Intake Oral 480 ml 240 ml Result Diagram: 10/09/17 1040 10/09/17 1040 Objective Remarks GENERAL: This is a well-nourished, female in no apparent distress, ambulating. SKIN: No rashes, ecchymoses or lesions. Cool and dry. HEAD: Atraumatic. Normocephalic. EYES: Pupils equal round and reactive. Extraocular motions intact. ENT: Nose without bleeding, purulent drainage. Airway patent. NECK: Trachea midline. No JVD. CARDIOVASCULAR: Regular rate and rhythm without murmurs, gallops, or rubs. RESPIRATORY: Clear to auscultation. Breath sounds equal bilaterally. No wheezes , rales, or rhonchi. GASTROINTESTINAL: Abdomen soft, non-tender, nondistended. No guarding. MUSCULOSKELETAL: Extremities without clubbing, cyanosis, or edema. NEUROLOGICAL: Awake alert and oriented x3. Mild hand tremors noted. Motor and sensory grossly within normal limits. Normal speech. A/P Problem List: (1) Benzodiazepine withdrawal with complication ICD Code: F13.239 - Sedative, hypnotic or anxiolytic dependence with withdrawal , unspecified Status: Acute Assessment and Plan 37 year old female with a history of depression, hep C and anxiety is being treated in the Psych department after an intentional xanax OD. Depression disorder -Managed by psychiatry -Behavioral issues this morning Benzodiazepine withdrawal, possible, patient took an unknown amount of Xanax 2 days ago, vitals currently stable -Ativan if needed per [facility] protocol -Cont Seroquel at bedtime -Monitor Vitals -Monitor for withdrawal symptoms, tremors, tachycardia, heart palpitations or seizures HTN, chronic - Cont home medication Norvasc - BP stable. Loose stools - Likely due to discontinuation of Methadone, no loose stools reported today. - Continue Probiotic Hep C - Elevated AST 70, ALT 293, alkaline phosphatase 78, T.liz 0.4. - Patient will need to follow with GI for treatment RLS - Will try Requip 0.25mg HS, start low given elevated LFT - Reassess tomorrow. DVT prophylaxis: Patient ambulating Discussed with nurse. Feliciano Mccoy Oct 10, 2017 12:48
--- NOTE | 2017-10-10 13:33 | HHI.PYPN ---
Subjective Chief Complaint: Psychosis Remarks Patient seen and examined with nurse. Chart reviewed. I note that the patient has been eating her meals and slept 7 hours overnight. CIWA Max in the last 24 hours is 8. Case discussed with nursing staff who reports that the patient threw herself on the floor earlier today because she was not administered medications fast enough. She did not sustain any injury. She has also been noted to be poking fun with other higher functioning patients at a more severely impaired patient on the unit. I find the patient socializing with peers in the day area. She complains of racing thoughts and poor sleep. She denies SI/HI. She complains of anxiety but does not appear anxious. She reports that she has in fact been on Zyprexa in the past but didn't think it helped. She thinks that Seroquel worked better and would like to switch. Somewhat medication seeking for benzos. No physical complaints. Review of Systems Except as stated in HPI: all other systems reviewed are Neg Mental Status Examination Appearance: Appropriate Consciousness: Alert Orientation: x4 Motor Activity: Normal gait, Other (no signs of withdrawal noted. No motor abnormalities noted otherwise.) Speech: Unremarkable Language: Adequate Fund of Knowledge: Adequate Attention and Concentration: Adequate Memory: Unremarkable Mood: Anxious Affect: Anxious Thought Process & Associations: Intact, Logical, Linear Thought Content: Appropriate Hallucination Type: None Delusion Type: None Suicidal Ideation: No Suicidal Plan: No Suicidal Intention: No Homicidal Ideation: No Homicidal Plan: No Homicidal Intention: No Insight: Fair Judgment: Impulsive Results Labs Labs reviewed. Vitals/IOs Vital Signs Date Time Temp Pulse Resp B/P (MAP) Pulse Ox O2 Delivery O2 Flow Rate FiO2 10/10/17 10:35 97.6 87 16 109/73 (85) 99 Assessment & Plan Problem List: (1) Other psychotic disorder not due to a substance or known physiological condition ICD Codes: F28 - Other psychotic disorder not due to a substance or known physiological condition (2) Polysubstance abuse ICD Codes: F19.10 - Other psychoactive substance abuse, uncomplicated Assessment & Plan Discontinue Zyprexa and replace with Seroquel 100 mg at bedtime per patient preference. R/B/A discussed with patient. Resume trazodone as needed per patient preference. Continue to monitor on the inpatient unit. Continue other medications and care as ordered. Justification for Cont. Inpt. Med changes. Risk for decompensation in less restrictive environment. Discharge Planning Pending psychiatric stabilization Request HC Surrog/Guard Advoc?: No Carlos Anton MD Oct 10, 2017 13:33
[2017-10-10 18:00] VITALS: BP 113/69; PULSE 81; RESP 18; TEMP 98.6; O2SAT 99
[2017-10-10] MEDS: LORazepam 1 MG TAB PO PRN (20:59)
[2017-10-10] MEDS: QUEtiapine FUMARATE 100 MG TAB PO SCH (20:59)
[2017-10-10] MEDS: CYCLOBENZAPRINE HCL 10 MG TAB PO PRN (21:00)
[2017-10-10] MEDS: traZODone HCL 100 MG TAB PO PRN (21:00)
[2017-10-11] VITALS: BP 112/60; PULSE 62; RESP 16; TEMP 98; O2SAT 98
[2017-10-11 05:11] VITALS: BP 110/67; PULSE 83; RESP 16; TEMP 97.8; O2SAT 97
--- NOTE | 2017-10-11 08:44 | HHI.PYPN ---
Subjective Chief Complaint: Psychosis Remarks Patient seen and examined with nurse. Chart reviewed. Case discussed with nursing staff, who reports patient remains somewhat med seeking but no real behavioral problem. On my examination today, patient reports that she slept better last night with Seroquel. She continues to complain of high anxiety associated with paranoia, noting that she is uncomfortable with all of the new patients on the unit. She also continues to worry that she is being monitored, and says that the two air vents on the wall of her room are concerning for her because she feels that she may be monitored through these. She denies SI but endorses some feelings that she does not want to live in her current state. No HI. Denies side effects from medications. No physical complaints. Restless legs reportedly decreased since starting Requip last night. Agreeable to titration of Seroquel this morning. Review of Systems ROS Limitations: Psychotic Except as stated in HPI: all other systems reviewed are Neg Mental Status Examination Appearance: Appropriate Consciousness: Alert Orientation: x4 Motor Activity: Other (No abnormal motor movements noted; no signs of withdrawal noted.) Speech: Unremarkable Language: Adequate Fund of Knowledge: Adequate Attention and Concentration: Adequate Memory: Unremarkable Mood: Anxious Affect: Anxious, Other (somewhat restricted and dysphoric) Thought Process & Associations: Intact, Logical, Goal directed, Linear Thought Content: Appropriate Hallucination Type: None Delusion Type: None Suicidal Ideation: No (no SI but see above) Suicidal Plan: No Suicidal Intention: No Homicidal Ideation: No Homicidal Plan: No Homicidal Intention: No Insight: Fair Judgment: Impulsive Results Labs Labs reviewed. No new labs. Vitals/IOs Vital Signs Date Time Temp Pulse Resp B/P (MAP) Pulse Ox O2 Delivery O2 Flow Rate FiO2 10/11/17 05:11 97.8 83 16 110/67 (81) 97 Intake and Output 10/11/17 10/11/17 10/12/17 08:00 16:00 00:00 Intake Total 240 ml Balance 240 ml Assessment & Plan Problem List: (1) Other psychotic disorder not due to a substance or known physiological condition ICD Codes: F28 - Other psychotic disorder not due to a substance or known physiological condition (2) Polysubstance abuse ICD Codes: F19.10 - Other psychoactive substance abuse, uncomplicated Assessment & Plan Titrate Seroquel to 50mg qAM and 100mg qHS with plans for further titration of this agent to effect. Hospitalist input appreciated. Continue to monitor on inpatient unit. Continue other meds and care as ordered. Justification for Cont. Inpt. Med changes. Impairment in reality construction. Risk for decompensation in less restrictive environment. Discharge Planning Pending psychiatric stabilization. Request HC Surrog/Guard Advoc?: No Carlos Anton MD Oct 11, 2017 08:44
[2017-10-11] MEDS: LACTOBACILLUS ACIDOPHILUS TAB PO SCH ×2 (08:51→20:38)
[2017-10-11] MEDS: amLODIPine BESYLATE 5 MG TAB PO SCH (08:52)
[2017-10-11] MEDS: QUEtiapine FUMARATE 25 MG TAB PO SCH (09:00)
--- NOTE | 2017-10-11 16:39 | HHI.PR ---
Subjective Remarks Follow-up visit Xanax overdose, opiate abuse, hep C, restless leg syndrome. Patient seen and examined today. Reports she is doing well. Patient states that restless leg syndrome has improved with ropinirole use. Discussed with patient that the dose cannot be increased secondary to liver function. Agrees with treatment plan. Denies pain and discomfort. Denies SOB/ dyspnea. Denies chest pain, palpitations, headaches, dizziness. Denies fevers, chills, n/v/d. Denies dysuria. Objective Vitals Vital Signs Date Time Temp Pulse Resp B/P (MAP) Pulse Ox O2 Delivery O2 Flow Rate FiO2 10/11/17 05:11 97.8 83 16 110/67 (81) 97 10/11/17 00:00 98.0 62 16 112/60 (77) 98 10/10/17 18:00 98.6 81 18 113/69 (84) 99 I/O 10/10/17 10/10/17 10/10/17 10/11/17 10/11/17 10/11/17 07:00 15:00 23:00 07:00 15:00 23:00 Intake Total 480 ml Balance 480 ml Intake Oral 480 ml Result Diagram: 10/09/17 1040 10/09/17 1040 Objective Remarks GENERAL: This is a well-nourished, well-developed patient, in no apparent distress. SKIN: Warm and dry. HEENT: Normocephalic. Pupils equal round and reactive. Nose without bleeding. Airway patent. NECK: Trachea midline. No JVD. Supple. CARDIOVASCULAR: Regular rate and rhythm without murmurs, gallops, or rubs. RESPIRATORY: Clear to auscultation. Breath sounds equal bilaterally. No wheezes , rales, or rhonchi. GASTROINTESTINAL: Abdomen soft, non-tender, nondistended. Bowel Sounds normoactive x4. MUSCULOSKELETAL: Extremities without clubbing, cyanosis, or edema. NEUROLOGICAL: Awake and alert. Oriented to time, place, person. No focal neuro deficit. Moves all extremities. Normal speech. A/P Problem List: (1) Benzodiazepine withdrawal with complication ICD Code: F13.239 - Sedative, hypnotic or anxiolytic dependence with withdrawal , unspecified Status: Acute Assessment and Plan Patient is a 37 year old female with a history of depression, hep C and anxiety is being treated in the Psych department after an intentional xanax OD. Depression disorder - Managed by psychiatry - Behavioral issues this morning Xanax overdose - Monitor for Benzodiazepine withdrawal, patient took an unknown amount of Xanax - Ativan if needed per [facility] protocol - Cont Seroquel at bedtime - Monitor for withdrawal symptoms, tremors, tachycardia, heart palpitations or seizures HTN, chronic - Cont home medication Norvasc - BP stable. Loose stools - Likely due to discontinuation of Methadone, no loose stools reported - Continue Probiotic Hep C Transaminitis - Improving levels of AST, ALT. - Patient will need to follow with GI/ID/ sewage treatment plant operator for treatment. RLS - Requip 0.25mg HS. discussed with patient due to transaminitis the medication dosage should not be increased if she continues to have restless leg syndrome she might benefit from gabapentin 300 nightly instead. - Improved DVT prophylaxis: Patient ambulating Stable from Hospitalist standpoint. We will sign off. Reconsult as needed. Reyna Ba Oct 11, 2017 16:39
[2017-10-11 18:31] VITALS: BP 113/62; PULSE 88; RESP 18; TEMP 98.7; O2SAT 99
[2017-10-11] MEDS: hydrOXYzine HCL 50 MG TAB PO PRN (20:38)
[2017-10-11] MEDS: QUEtiapine FUMARATE 100 MG TAB PO SCH (20:38)
[2017-10-11] MEDS: traZODone HCL 100 MG TAB PO PRN (20:38)
[2017-10-12] MEDS: CYCLOBENZAPRINE HCL 10 MG TAB PO PRN (01:40)
[2017-10-12] MEDS: hydrOXYzine HCL 50 MG TAB PO PRN ×2 (04:00→19:37)
[2017-10-12 05:06] VITALS: BP 120/73; PULSE 98; RESP 16; TEMP 98.1; O2SAT 98
[2017-10-12] MEDS: amLODIPine BESYLATE 5 MG TAB PO SCH (08:24)
[2017-10-12] MEDS: QUEtiapine FUMARATE 25 MG TAB PO SCH (08:24)
[2017-10-12] MEDS: LACTOBACILLUS ACIDOPHILUS TAB PO SCH ×2 (08:24→21:20)
--- NOTE | 2017-10-12 14:23 | HHI.PYPN ---
Subjective Chief Complaint: Psychosis Remarks Patient seen and examined with nurse. Chart reviewed. Case discussed with nursing staff. Case discussed in treatment team with counselor, RT and OT. Therapists note that the patient is extremely social in groups and on the unit. She is noted to be benzo seeking. It is the assessment of the team that the patient is likely trying to exaggerate symptoms if not outright malinger for benzos. I note that she threatened the nurse yesterday that she would "have a seizure" if she was not given Ativan per CIWA, although she has not been scoring highly enough to warrant Ativan. On my exam today, patient remains fairly benzo seeking. I have clearly stated that we will not be providing the patient with benzos, except as per CIWA. She tells me that she "cannot think straight" because we have stopped her benzos. There is no evidence of bin adam delirium, however. She does complain of poor sleep. Some efforts at ' playing bad' noted during the interview, I suspect in service of convincing us to provide benzos, but she rapidly returns to normal behavior when confronted with the obviously malingered quality of these behaviors. Denies side effects from medications. Agreeable to titration of Seroquel for sleep. No physical complaints. Review of Systems Except as stated in HPI: all other systems reviewed are Neg Mental Status Examination Appearance: Appropriate Consciousness: Alert Orientation: x4 Motor Activity: Other (No motor abnormalities noted. No signs of withdrawal noted.) Speech: Unremarkable Language: Adequate Fund of Knowledge: Adequate Attention and Concentration: Adequate Memory: Unremarkable Mood: Other (Calm) Affect: Appropriate Thought Process & Associations: Intact, Logical, Goal directed, Linear Thought Content: Appropriate Hallucination Type: None Delusion Type: None Suicidal Ideation: No Suicidal Plan: No Suicidal Intention: No Homicidal Ideation: No Homicidal Plan: No Homicidal Intention: No Insight: Fair Judgment: Adequate (fair) Results Labs Labs reviewed. No new labs. Vitals/IOs Vital Signs Date Time Temp Pulse Resp B/P (MAP) Pulse Ox O2 Delivery O2 Flow Rate FiO2 10/12/17 05:06 98.1 98 16 120/73 (89) 98 Intake and Output 10/12/17 10/12/17 10/13/17 08:00 16:00 00:00 Intake Total 240 ml Balance 240 ml Assessment & Plan Problem List: (1) Adjustment disorder, unspecified ICD Codes: F43.20 - Adjustment disorder, unspecified (2) Polysubstance abuse ICD Codes: F19.10 - Other psychoactive substance abuse, uncomplicated Assessment & Plan Titrate HS dose of Seroquel over weekend to 200mg qHS for sleep. Continue to monitor on inpatient unit. Continue other meds and care as ordered. Justification for Cont. Inpt. Med changes. Discharge Planning Discharge Sunday. Request HC Surrog/Guard Advoc?: No Problem Qualifiers (1) Adjustment disorder, unspecified: Qualified Codes: F43.20 - Adjustment disorder, unspecified Carlos Anton MD Oct 12, 2017 14:23
[2017-10-12] MEDS ORDERED: PILL SPLITTER OTHER PRN (14:30)
[2017-10-12] MEDS: ACETAMINOPHEN 325 MG TAB PO PRN (16:48)
[2017-10-12 18:24] VITALS: BP 116/78; PULSE 88; RESP 16; TEMP 98.3; O2SAT 100
[2017-10-12] MEDS: QUEtiapine FUMARATE 100 MG TAB PO SCH (21:21)
[2017-10-13] MEDS: CYCLOBENZAPRINE HCL 10 MG TAB PO PRN (03:47)
[2017-10-13 06:01] VITALS: BP 113/77; PULSE 97; RESP 16; TEMP 98.3; O2SAT 98
[2017-10-13] MEDS: QUEtiapine FUMARATE 25 MG TAB PO SCH (09:15)
[2017-10-13] MEDS: amLODIPine BESYLATE 5 MG TAB PO SCH (09:15)
[2017-10-13] MEDS: LACTOBACILLUS ACIDOPHILUS TAB PO SCH ×2 (09:15→20:38)
--- NOTE | 2017-10-13 11:46 | HHI.PYPN ---
Subjective Chief Complaint: Psychosis Remarks Patient was seen and case discussed with nursing. CIWA is 0. Patient is perseverative on discharge and psychoeducation was done concerning the legal process and her recent suicide attempt. She is initially irritable but becomes slightly more cooperative as time goes on. Feels that she's feel stressed." Denies suicidal homicidal ideation intent or plan. Compliant with medications Mental Status Examination Appearance: Appropriate Consciousness: Alert Orientation: x4 Motor Activity: Other (No motor abnormalities noted. No signs of withdrawal noted.) Speech: Unremarkable Language: Adequate Fund of Knowledge: Adequate Attention and Concentration: Adequate Memory: Unremarkable Mood: Other (Calm) Affect: Appropriate Thought Process & Associations: Intact, Logical, Goal directed, Linear Thought Content: Appropriate Hallucination Type: None Delusion Type: None Suicidal Ideation: No Suicidal Plan: No Suicidal Intention: No Homicidal Ideation: No Homicidal Plan: No Homicidal Intention: No Insight: Fair Judgment: Adequate (fair) Results Vitals/IOs Vital Signs Date Time Temp Pulse Resp B/P (MAP) Pulse Ox O2 Delivery O2 Flow Rate FiO2 10/13/17 06:01 98.3 97 16 113/77 (89) 98 Assessment & Plan Problem List: (1) Adjustment disorder, unspecified ICD Codes: F43.20 - Adjustment disorder, unspecified (2) Polysubstance abuse ICD Codes: F19.10 - Other psychoactive substance abuse, uncomplicated Assessment & Plan Continue current treatment plan Justification for Cont. Inpt. Patient would decompensate in a less restrictive setting Request HC Surrog/Guard Advoc?: No Problem Qualifiers (1) Adjustment disorder, unspecified: Qualified Codes: F43.20 - Adjustment disorder, unspecified Pranav Campbell DO Oct 13, 2017 11:46
[2017-10-13] MEDS: hydrOXYzine HCL 50 MG TAB PO PRN (13:10)
[2017-10-13 17:25] VITALS: BP 131/70; PULSE 96; RESP 16; TEMP 97.6; O2SAT 99
[2017-10-13] MEDS: QUEtiapine FUMARATE 100 MG TAB PO SCH (20:39)
[2017-10-14 06:00] VITALS: BP 108/54; PULSE 87; RESP 18; TEMP 97.6; O2SAT 98
[2017-10-14] MEDS: QUEtiapine FUMARATE 25 MG TAB PO SCH (09:00)
[2017-10-14] MEDS: LACTOBACILLUS ACIDOPHILUS TAB PO SCH ×2 (09:00→20:22)
[2017-10-14] MEDS: amLODIPine BESYLATE 5 MG TAB PO SCH (09:00)
--- NOTE | 2017-10-14 13:34 | HHI.PYPN ---
Subjective Chief Complaint: Psychosis Remarks Patient was seen and case discussed with nursing. Patient remains perseverative on discharge. She is blunted and hypoverbal. [place] formal. Had a productive visit from her friend. Future plans include staying away from alcohol and joining AA. She denies depressed mood. Denies suicidal or homicidal ideation intent or plan. Tolerating medications well. Mental Status Examination Appearance: Appropriate Consciousness: Alert Orientation: x4 Motor Activity: Other (No motor abnormalities noted. No signs of withdrawal noted.) Speech: Unremarkable Language: Adequate Fund of Knowledge: Adequate Attention and Concentration: Adequate Memory: Unremarkable Mood: Other (Calm) Affect: Appropriate Thought Process & Associations: Intact, Logical, Goal directed, Linear Thought Content: Appropriate Hallucination Type: None Delusion Type: None Suicidal Ideation: No Suicidal Plan: No Suicidal Intention: No Homicidal Ideation: No Homicidal Plan: No Homicidal Intention: No Insight: Fair Judgment: Adequate (fair) Results Vitals/IOs Vital Signs Date Time Temp Pulse Resp B/P (MAP) Pulse Ox O2 Delivery O2 Flow Rate FiO2 10/14/17 06:00 97.6 87 18 108/54 (72) 98 Assessment & Plan Problem List: (1) Adjustment disorder, unspecified ICD Codes: F43.20 - Adjustment disorder, unspecified (2) Polysubstance abuse ICD Codes: F19.10 - Other psychoactive substance abuse, uncomplicated Assessment & Plan Continue current treatment plan Justification for Cont. Inpt. Patient will decompensate in a less restrictive setting Request HC Surrog/Guard Advoc?: No Problem Qualifiers (1) Adjustment disorder, unspecified: Qualified Codes: F43.20 - Adjustment disorder, unspecified Pranav Campbell DO Oct 14, 2017 13:34
[2017-10-14 18:38] VITALS: BP 137/84; PULSE 98; RESP 17; TEMP 97.9; O2SAT 100
[2017-10-14] MEDS: QUEtiapine FUMARATE 100 MG TAB PO SCH (20:22)
[2017-10-14] MEDS: CYCLOBENZAPRINE HCL 10 MG TAB PO PRN (20:56)
[2017-10-15 06:11] VITALS: BP 120/60; PULSE 72; RESP 16; TEMP 98; O2SAT 97
[2017-10-15] MEDS: amLODIPine BESYLATE 5 MG TAB PO SCH (09:00)
[2017-10-15] MEDS: QUEtiapine FUMARATE 25 MG TAB PO SCH (09:00)
[2017-10-15] MEDS: LACTOBACILLUS ACIDOPHILUS TAB PO SCH (09:00)
[2017-10-15] MEDS ORDERED: LACT PO (11:57)
[2017-10-15] MEDS ORDERED: QUET1TAB8 PO (11:57)
[2017-10-15] MEDS ORDERED: SERO25TA PO (11:57)
[2017-10-15] MEDS ORDERED: AMLO5TAB2 PO (11:57)
[2017-10-15] MEDS ORDERED: ROPI.25 PO (11:57)
--- NOTE | 2017-10-15 11:57 | HHI.DS ---
Psychiatry Discharge Summary Inpatient Psychiatric care?: Yes Advance Directive: No Reason Not Provided: Provided to patient Mental Health AdvanceDirective: No Health Care Proxy: No Admission Admission Date Oct 08, 2017 at 15:53 Admission Diagnosis: (1) Adjustment disorder with mixed disturbance of emotions and conduct ICD Code: F43.25 - Adjustment disorder with mixed disturbance of emotions and conduct Brief History 37-year-old female overdosed on multiple Xanax tablets while staying by herself in a hotel room. Patient states she was upset after an argument because she wanted to go to [place] to visit her mother. Either her mother or her father, both of whom work, were unwilling to provide money and support for this trip to [place]. The patient therefore purposely overdosed on the medication. She continues to have multiple symptoms of depressed mood, anhedonia, feelings of hopelessness and helplessness, diminished self-esteem, social withdrawal, sleep disturbance, irritability, concentration deficits, diminished energy, etc. She also admits to suicidal ideation. According to the nurse, the patient attempted to commit suicide approximately one month ago as well. Tobacco Use In Past 30 Days: Cigars/Pipe But Not Daily Alcohol Use: 2-4 Times Per Month Hospital Course Patient was admitted to a locked, inpatient psychiatric unit. A general medical consultation was obtained. Appropriate precautions were in place throughout patient's hospital stay. Patient was seen and examined on the unit by psychiatry and also visited by counselor. Psychotropic medications were adjusted. Patient tolerated medication changes well without side effects. Patient was noted to be fairly medication seeking for benzodiazepines. There has been no evidence of any suicidality or homicidality on the inpatient unit. The patient has remained in generally good behavioral control. Counselor has obtained collateral information from the patient's father, and father is reportedly chiefly concerned about patient's benzodiazepine misuse. On the day of discharge: Patient seen and examined with nurse. Chart reviewed. Case discussed with counselor and nurse. No behavioral issues overnight. On my examination today, the patient is requesting discharge from the inpatient psychiatric unit today. She denies any suicidal or homicidal ideation, intent or plan on direct questioning and contracts for safety. I can elicit no depressive or hypomanic/manic symptoms. She denies any audiovisual hallucinations. I can elicit no delusional material. She denies any side effects from medications. No physical complaints. Suicide and violence risk assessment on day of discharge both suggest lower imminent risk, and the patient 's level of function is adequate for outpatient care. Substance use disorder constitutes a chronic risk factor that will not improve with a longer general inpatient psychiatric hospital stay, and I have recommended patient seek chemical dependency evaluation and treatment on an outpatient basis. Patient does not meet criteria for involuntary psychiatric hospitalization and is requesting discharge from the inpatient psychiatric unit today. I have no basis to retain her on the unit over her objection. She will be discharged home today with psychiatric follow-up as arranged by counselor. Patient is also to follow-up with primary care as well as with GI and ID for her history of hepatitis C. I have counseled the patient regarding warning signs for need to return to the psychiatric emergency room as part of a general safety plan. Results Blood Pressure 120 / 60 Vital Signs Date Time Temp Pulse Resp B/P (MAP) Pulse Ox O2 Delivery O2 Flow Rate FiO2 10/15/17 06:11 98.0 72 16 120/60 (80) 97 Laboratory Results Test 10/09/17 10:40 Cholesterol Level 166 MG/DL (120-200) HDL Cholesterol 76.4 MG/DL (40.0-60.0) Hemoglobin A1c 5.0 % (4.3-6.0) LDL Cholesterol 52 MG/DL (0-99) Triglycerides Level 188 MG/DL (42-150) Summary of Procedures None done Imaging None done Pending results at discharge: No Medications # of Antipsychotic meds at D/C: 1 Approp Antipsych med options 1 - Minimum of three failed multiple trials of monotherapy. 2 - Documented plan to taper to monotherapy due to previous use of multiple meds OR cross-taper in progress at D/C. 3 - Documentation of augmentation of Clozapine. 4 - Justification other than those listed in allowable values 1-3, document here : Discharge Discharge Date: Oct 15, 2017 Discharge Diagnosis: (1) Adjustment disorder with mixed disturbance of emotions and conduct Diagnosis: Principal ICD Code: F43.25 - Adjustment disorder with mixed disturbance of emotions and conduct (2) Polysubstance abuse Diagnosis: Secondary ICD Code: F19.10 - Other psychoactive substance abuse, uncomplicated Pt Condition on Discharge: Stable Discharge Disposition: Discharge Home Discharge Instructions Diet Instructions: As Tolerated, No Restrictions Activities you can perform: Weight Bearing as Clarisa Scheduled Appointment: Chema Blanco Appointment Date: Oct 16, 2017 Appointment Time: 730am New Orders: COMP MET PROF ([facility]) - 1 Week New Medications: Lactobacillus Acidophilus (Acidophilus/l-Sporogenes) 35 Million Cell-25 Million Cell Tab 1 TAB PO Q12HR for Nutritional Supplement for 15 Days, TAB 1 Refill Quetiapine (Quetiapine) 100 Mg Tab 200 MG PO HS for Mental Health for 15 Days, TAB 1 Refill Quetiapine (Seroquel) 25 Mg Tab 50 MG PO DAILY for Mental Health for 15 Days, #30 TAB 1 Refill Ropinirole (Requip) 0.25 Mg Tab 0.25 MG PO HS for Restless legs for 15 Days, TAB 1 Refill Continued Medications: Amlodipine (Amlodipine) 5 Mg Tab 5 MG PO DAILY for Blood Pressure Management for 15 Days, #15 TAB 1 Refill (This prescription has been renewed) Discontinued Medications: Alprazolam (Xanax) 1 Mg Tab 1 MG PO Q8H for ANXIETY, TAB 0 Refills Chlordiazepoxide HCl (Chlordiazepoxide HCl) 25 Mg Capsule 25 MG PO Q12HR PRN for WITHDRAWAL, #9 Discharge Time <= 30 minutes Mental Status Examination Appearance: Appropriate Consciousness: Alert Orientation: x4 (no evidence of delirium) Motor Activity: Other (no signs of any withdrawal noted. No motoric abnormalities noted.) Speech: Unremarkable Language: Adequate Fund of Knowledge: Adequate Attention and Concentration: Adequate Memory: Unremarkable Mood: Appropriate Affect: Blunt Thought Process & Associations: Intact, Logical, Goal directed, Linear Thought Content: Appropriate Hallucination Type: None Delusion Type: None Suicidal Ideation: No Suicidal Plan: No Suicidal Intention: No Homicidal Ideation: No Homicidal Plan: No Homicidal Intention: No Insight: Fair Judgment: Adequate (fair) Discharge/Advance Care Plan Health Problems: (1) Adjustment disorder, unspecified (2) Polysubstance abuse Goals to promote your health * To prevent worsening of your condition and complications * To maintain your health at the optimal level Directions to meet your goals Take your medications as prescribed Follow your dietary instruction Follow activity as directed Keep your appointments as scheduled Take your immunizations and boosters as scheduled If your symptoms worsen call your PCP, if no PCP go to Urgent Care Center or Emergency Room For 16/04 questions related to your inpatient stay or results of tests pending at discharge, please contact Dr. Carlos Anton at Smoking is Dangerous to Your Health. Avoid second hand smoking Carlos Anton MD Oct 15, 2017 11:57
--- NOTE | 2017-10-16 10:34 | PD.TTN ---
Patient Problems 1. Discharge planning 2. Medication compliance 3. Knowledge deficit 4. Lack of coping skills Progress Toward Goals Provider Present: Dr. Jennifer Anton Provider Input: 10/12 complaints of paranoia , not nice with staff, possibly benzo seeking Psychiatric Counselors Present: Sasah Cuellar LCSW Psych Therapist Input: 10/12 possible discharge soon Group Spec/RT/OT/ARORA Present: ARACELI Hare Group Spec/RT/OT/ARORA Input: 10/12 participates in groups with good participation and social Sasha Cuellar LCSW Oct 16, 2017 10:34
== END 2017-10-15 16:50 | disposition home or self-care (01) | DRG 882 ==
LOC: H260 15:53
PROVIDERS: ADMIT Psychiatry & Neurology Psychiatry; ATTEND Psychiatry & Neurology Psychiatry
DX: F43.25 Adjustment disorder with mixed disturbance of emotions and conduct (principal); F22 Delusional disorders; I10 Essential (primary) hypertension; F13.239 Sedative, hypnotic or anxiolytic dependence with withdrawal, unspecified; F11.10 Opioid abuse, uncomplicated; T42.4X2A Poisoning by benzodiazepines, intentional self-harm, initial encounter; G25.81 Restless legs syndrome; B19.20 Unspecified viral hepatitis C without hepatic coma; F31.9 Bipolar disorder, unspecified; Y92.59 Other trade areas as the place of occurrence of the external cause; Z72.0 Tobacco use; Z81.8 Family history of other mental and behavioral disorders; Z91.410 Personal history of adult physical and sexual abuse
CPT/HCPCS: 80053; 80061; 82306; 82607; 83036; 84439; 84443; 84703; 85025; 93005

== ENCOUNTER 2017-10-25 19:48 | Inpatient (IN) | payer SELFPAY ==
[~2017-10-25] VITALS: Ht 162.6 cm; Wt 65.0 kg
[~2017-10-25 19:48] MED LIST changes: -CHLO25CA9 PO; +LACT PO; +QUET1TAB8 PO; +ROPI.25 PO; +SERO25TA PO; -XANA1TAB2 PO
[2017-10-25 19:50] VITALS: BP 137/76; PULSE 84; RESP 18; TEMP 97.8; O2SAT 99
[2017-10-26 01:01] LABS: AUTOMATED NEUTROPHIL # 2.2 TH/MM3 (1.8-7.7); BASOPHIL # 0.1 TH/MM3 (0-0.2); BASOPHIL % 1.3 % (0.0-2.0); EOSINOPHIL # 0.3 TH/MM3 (0-0.4); EOSINOPHIL % 3.9 % (0.0-4.0); HEMATOCRIT 38.9 % (35.0-46.0); HEMOGLOBIN 13.5 GM/DL (11.6-15.3); LYMPH % 55.6 % (9.0-44.0); LYMPHOCYTE # 3.8 TH/MM3 (1.0-4.8); MEAN CELL VOLUME 93.6 FL (80.0-100.0); MEAN CORPUSCULAR HEMOGLOBIN 32.5 PG (27.0-34.0); MEAN CORPUSCULAR HGB CONC 34.7 % (32.0-36.0); MEAN PLATELET VOLUME 7.9 FL (7.0-11.0); MONO % 6.8 % (0.0-8.0); MONOCYTE # 0.5 TH/MM3 (0-0.9); NEUT % 32.4 % (16.0-70.0); PLATELET COUNT 294 TH/MM3 (150-450); RED BLOOD COUNT 4.15 MIL/MM3 (4.00-5.30); RED CELL DISTRIBUTION WIDTH 13.7 % (11.6-17.2); WHITE BLOOD COUNT 6.8 TH/MM3 (4.0-11.0)
[2017-10-26 01:04] LABS: AMORPHOUS SEDIMENT, URINE RARE; BACTERIA, URINE FEW /hpf; BILIRUBIN, URINE NEG (NEG); BLOOD, URINE NEG (NEG); GLUCOSE,URINE NEG (NEG); KETONE, URINE NEG (NEG); MUCUS URINE MANY /lpf (OCC); NITRITE,URINE NEG (NEG); SQUAMOUS EPITHELIAL CELL URINE 43 /hpf (0-5); TRANSITIONAL EPI CELLS, URINE 2 /hpf; URINE COLOR YELLOW (YELLW/STRAW); URINE LEUKOCYTE ESTERASE MOD (NEG)
[2017-10-26 01:16] LABS: ALBUMIN 3.7 GM/DL (3.4-5.0); ALT (GPT) 94 U/L (10-53); AST (GOT) 50 U/L (15-37); BICARBONATE 25.2 MEQ/L (21.0-32.0); BLOOD UREA NITROGEN 12 MG/DL (7-18); CALCIUM 8.4 MG/DL (8.5-10.1); CHLORIDE 110 MEQ/L (98-107); CREATININE 0.65 MG/DL (0.50-1.00); GLOMERULAR FILTRATION RATE 101 ML/MIN (>89); GLUCOSE,RANDOM 95 MG/DL (74-106); SODIUM (NA) 142 MEQ/L (136-145)
--- NOTE | 2017-10-26 01:21 | PD ---
HPI Chief Complaint: Psychiatric Symptoms Time Seen by Provider: 00:22 Travel History International Travel<30 days: No Contact w/Intl Traveler<30days: No Traveled to known affect area: No History of Present Illness HPI Patient is a 37-year-old female presented voluntarily to the emergency department for psychiatric evaluation. Patient states that she feels crazy and suicidal. She reports the onset of these symptoms was a few days ago. She states that she does not want to live. When asked she states that she has had family issues. She does endorse a previous suicide attempt 1 week ago by overdosing on Xanax. She currently denies any drug or alcohol use. Last menstrual cycle stopped 4 days ago. She does report a history of depression, schizophrenia, bipolar disorder, hypertension. She reports compliance with her medications. She denies any hallucinations or homicidal ideations. There are no alleviating factors. Symptoms seem to be exacerbated by her family situation. PFSH Past Medical History Anxiety: Yes Depression: Yes Cancer: Yes ("Basal carcinoma on chest and in ear") Cardiovascular Problems: Yes Chemotherapy: No Diminished Hearing: No (UTO) Endocrine: No Genitourinary: No Hypertension: Yes Immune Disorder: No Musculoskeletal: Yes Neurologic: Yes Psychiatric: Yes Reproductive: No Respiratory: No Radiation Therapy: No Seizures: Yes ?: Not LMP: "ABOUT A WEEK AGO" Past Surgical History Surgical History: No Previous Surgery Other Surgery: No Social History Alcohol Use: No ("DENIED") Tobacco Use: No ("DENIED") Substance Use: No ("DENIED") Allergies-Medications (Allergen,Severity, Reaction): Coded Allergies: No Known Allergies (Verified Allergy, Unknown, 10/25/17) Reported Meds & Prescriptions Reported Meds & Active Scripts Active Acidophilus/l-Sporogenes (Lactobacillus Acidophilus) 35 Million Cell-25 Million Cell Tab 1 Tab PO Q12HR 15 Days Requip (Ropinirole HCl) 0.25 Mg Tab 0.25 Mg PO HS 15 Days Seroquel (Quetiapine Fumarate) 25 Mg Tab 50 Mg PO DAILY 15 Days Quetiapine (Quetiapine Fumarate) 100 Mg Tab 200 Mg PO HS 15 Days Amlodipine (Amlodipine Besylate) 5 Mg Tab 5 Mg PO DAILY 15 Days Review of Systems Except as stated in HPI: all other systems reviewed are Neg Psychiatric: Positive: Depression, Suicidal Ideations Physical Exam Narrative GENERAL: Developed, well-nourished, alert female. Resting in no acute distress. SKIN: Warm and dry. HEAD: Atraumatic. Normocephalic. EYES: Pupils equal and round. No scleral icterus. No injection or drainage. ENT: No nasal bleeding or discharge. Mucous membranes pink and moist. NECK: Trachea midline. No JVD. CARDIOVASCULAR: Regular rate and rhythm. RESPIRATORY: No accessory muscle use. Clear to auscultation. Breath sounds equal bilaterally. GASTROINTESTINAL: Abdomen soft, non-tender, nondistended. Hepatic and splenic margins not palpable. MUSCULOSKELETAL: Extremities without clubbing, cyanosis, or edema. No obvious deformities. NEUROLOGICAL: Awake and alert. No obvious cranial nerve deficits. Motor grossly within normal limits. Five out of 5 muscle strength in the arms and legs. Normal speech. PSYCHIATRIC: Suspicious mood and flat affect; insight and judgment normal. Data Data Last Documented VS Vital Signs Date Time Temp Pulse Resp B/P (MAP) Pulse Ox O2 Delivery O2 Flow Rate FiO2 10/25/17 19:50 97.8 84 18 137/76 (96) 99 Room Air Orders Orders Complete Blood Count With Diff (10/26/17 00:22) Comprehensive Metabolic Panel (10/26/17 00:22) Thyroid Stimulating Hormone (10/26/17 00:22) Urinalysis - C+S If Indicated (10/26/17 00:22) Psych Screen (10/26/17 00:22) Drug Screen, Random Urine (10/26/17 00:22) Alcohol (Ethanol) (10/26/17 00:22) Salicylates (Aspirin) (10/26/17 00:22) Tylenol (Acetaminophen) (10/26/17 00:22) Urine Culture (10/26/17 00:35) Nitrofurantoin Monohyd Macrocr (Macrobid (10/26/17 01:45) Labs Laboratory Tests Test 10/26/17 00:35 White Blood Count 6.8 TH/MM3 Red Blood Count 4.15 MIL/MM3 Hemoglobin 13.5 GM/DL Hematocrit 38.9 % Mean Corpuscular Volume 93.6 FL Mean Corpuscular Hemoglobin 32.5 PG Mean Corpuscular Hemoglobin Concent 34.7 % Red Cell Distribution Width 13.7 % Platelet Count 294 TH/MM3 Mean Platelet Volume 7.9 FL Neutrophils (%) (Auto) 32.4 % Lymphocytes (%) (Auto) 55.6 % Monocytes (%) (Auto) 6.8 % Eosinophils (%) (Auto) 3.9 % Basophils (%) (Auto) 1.3 % Neutrophils # (Auto) 2.2 TH/MM3 Lymphocytes # (Auto) 3.8 TH/MM3 Monocytes # (Auto) 0.5 TH/MM3 Eosinophils # (Auto) 0.3 TH/MM3 Basophils # (Auto) 0.1 TH/MM3 CBC Comment DIFF FINAL Differential Comment Urine Color YELLOW Urine Turbidity HAZY Urine pH 6.0 Urine Specific [place] 1.019 Urine Protein 30 mg/dL Urine Glucose (UA) NEG mg/dL Urine Ketones NEG mg/dL Urine Occult Blood NEG Urine Nitrite NEG Urine Bilirubin NEG Urine Urobilinogen LESS THAN 2.0 MG/DL Urine Leukocyte Esterase MOD Urine RBC 5 /hpf Urine WBC 14 /hpf Urine Squamous Epithelial Cells 43 /hpf Urine Transitional Epithelial Cells 2 /hpf Urine Amorphous Sediment RARE Urine Bacteria FEW /hpf Urine Mucus MANY /lpf Microscopic Urinalysis Comment CULTURE INDICATED Blood Urea Nitrogen 12 MG/DL Creatinine 0.65 MG/DL Random Glucose 95 MG/DL Total Protein 7.0 GM/DL Albumin 3.7 GM/DL Calcium Level 8.4 MG/DL Alkaline Phosphatase 60 U/L Aspartate Amino Transf (AST/SGOT) 50 U/L Alanine Aminotransferase (ALT/SGPT) 94 U/L Total Bilirubin 0.2 MG/DL Sodium Level 142 MEQ/L Potassium Level 3.6 MEQ/L Chloride Level 110 MEQ/L Carbon Dioxide Level 25.2 MEQ/L Anion Gap 7 MEQ/L Estimat Glomerular Filtration Rate 101 ML/MIN Thyroid Stimulating Hormone 3rd Gen 0.887 uIU/ML Salicylates Level 3.5 MG/DL Urine Opiates Screen NEG Acetaminophen Level LESS THAN 2.0 MCG/ML Urine Barbiturates Screen NEG Urine Amphetamines Screen POS Urine Benzodiazepines Screen NEG Urine Cocaine Screen POS Urine Cannabinoids Screen NEG Ethyl Alcohol Level LESS THAN 3 MG/DL MDM Medical Decision Making Medical Screen Exam Complete: Yes Emergency Medical Condition: Yes Interpretation(s) Laboratory Tests Test 10/26/17 00:35 White Blood Count 6.8 TH/MM3 Red Blood Count 4.15 MIL/MM3 Hemoglobin 13.5 GM/DL Hematocrit 38.9 % Mean Corpuscular Volume 93.6 FL Mean Corpuscular Hemoglobin 32.5 PG Mean Corpuscular Hemoglobin Concent 34.7 % Red Cell Distribution Width 13.7 % Platelet Count 294 TH/MM3 Mean Platelet Volume 7.9 FL Neutrophils (%) (Auto) 32.4 % Lymphocytes (%) (Auto) 55.6 % Monocytes (%) (Auto) 6.8 % Eosinophils (%) (Auto) 3.9 % Basophils (%) (Auto) 1.3 % Neutrophils # (Auto) 2.2 TH/MM3 Lymphocytes # (Auto) 3.8 TH/MM3 Monocytes # (Auto) 0.5 TH/MM3 Eosinophils # (Auto) 0.3 TH/MM3 Basophils # (Auto) 0.1 TH/MM3 CBC Comment DIFF FINAL Differential Comment Urine Color YELLOW Urine Turbidity HAZY Urine pH 6.0 Urine Specific [place] 1.019 Urine Protein 30 mg/dL Urine Glucose (UA) NEG mg/dL Urine Ketones NEG mg/dL Urine Occult Blood NEG Urine Nitrite NEG Urine Bilirubin NEG Urine Urobilinogen LESS THAN 2.0 MG/DL Urine Leukocyte Esterase MOD Urine RBC 5 /hpf Urine WBC 14 /hpf Urine Squamous Epithelial Cells 43 /hpf Urine Transitional Epithelial Cells 2 /hpf Urine Amorphous Sediment RARE Urine Bacteria FEW /hpf Urine Mucus MANY /lpf Microscopic Urinalysis Comment CULTURE INDICATED Blood Urea Nitrogen 12 MG/DL Creatinine 0.65 MG/DL Random Glucose 95 MG/DL Total Protein 7.0 GM/DL Albumin 3.7 GM/DL Calcium Level 8.4 MG/DL Alkaline Phosphatase 60 U/L Aspartate Amino Transf (AST/SGOT) 50 U/L Alanine Aminotransferase (ALT/SGPT) 94 U/L Total Bilirubin 0.2 MG/DL Sodium Level 142 MEQ/L Potassium Level 3.6 MEQ/L Chloride Level 110 MEQ/L Carbon Dioxide Level 25.2 MEQ/L Anion Gap 7 MEQ/L Estimat Glomerular Filtration Rate 101 ML/MIN Thyroid Stimulating Hormone 3rd Gen 0.887 uIU/ML Salicylates Level 3.5 MG/DL Urine Opiates Screen NEG Acetaminophen Level LESS THAN 2.0 MCG/ML Urine Barbiturates Screen NEG Urine Amphetamines Screen POS Urine Benzodiazepines Screen NEG Urine Cocaine Screen POS Urine Cannabinoids Screen NEG Ethyl Alcohol Level LESS THAN 3 MG/DL Vital Signs Date Time Temp Pulse Resp B/P (MAP) Pulse Ox O2 Delivery O2 Flow Rate FiO2 10/25/17 19:50 97.8 84 18 137/76 (96) 99 Room Air Differential Diagnosis Mood disorder versus substance abuse versus suicidal ideations versus Narrative Course Patient is a 37-year-old female presenting to emergency Department voluntarily for psychiatric evaluation secondary to suicidal ideations. Patient is well- appearing, her vital signs are stable. Labs and psych screen ordered and pending. CBC with no acute findings Chemistry with mild transaminitis, no acute findings. Urine drug screen is positive for amphetamines and cocaine. Urinalysis is consistent with a urinary tract infection. Nitrofurantoin 1 dose ordered. Patient will be given a prescription to complete full course of therapy. At this time patient is medically cleared for psychiatric evaluation. Diagnosis Primary Impression: Medical clearance for psychiatric admission Additional Impressions: Polysubstance abuse Urinary tract infection Qualified Codes: N39.0 - Urinary tract infection, site not specified; R31.9 - Hematuria, unspecified Med/Other Pt SpecificInfo: Prescription(s) given Scripts Nitrofurantoin Monohydrate Macrocrystals (Nitrofurantoin Monohydrate Macrocrystals) 100 Mg Cap 100 MG PO BID for Infection, #14 CAP 0 Refills Prov: Ann Jackson 10/26/17 Condition: Stable Ann Jackson Oct 26, 2017 01:21
[2017-10-26 01:26] LABS: ACETAMINOPHEN LESS THAN 2.0 MCG/ML (10.0-30.0); ALKALINE PHOSPHATASE 60 U/L (45-117); TOTAL BILIRUBIN ADULT 0.2 MG/DL (0.2-1.0)
[2017-10-26] MEDS ORDERED: NITR100C4 PO (01:44)
[2017-10-26] MEDS ORDERED: NITROFURANTOIN MONOHYD MACROCR 100 MG CAP PO ONE (01:45)
[2017-10-26 06:32] VITALS: BP 106/69; PULSE 71; RESP 16; O2SAT 98
[2017-10-26 11:32] VITALS: BP 110/70; PULSE 78; RESP 18; TEMP 99.2; O2SAT 97
[2017-10-26 18:07] VITALS: BP 111/71; PULSE 70; RESP 18; TEMP 98.8; O2SAT 97
[2017-10-27 05:24] VITALS: BP 120/78; PULSE 84; RESP 17; TEMP 98.9; O2SAT 96
[2017-10-27] MEDS: NITROFURANTOIN MONOHYD MACROCR 100 MG CAP PO SCH ×2 (14:44→19:19)
[2017-10-27 17:01] VITALS: BP 122/73; PULSE 58; RESP 16; TEMP 98.7; O2SAT 100
[2017-10-27 22:05] VITALS: BP 112/68; PULSE 68; RESP 17; TEMP 98.7; O2SAT 98
[2017-10-28 07:07] VITALS: BP 118/62; PULSE 68; RESP 17; TEMP 98.1; O2SAT 100
[2017-10-28] MEDS: NITROFURANTOIN MONOHYD MACROCR 100 MG CAP PO SCH ×2 (10:26→21:20)
[2017-10-28 11:17] VITALS: BP 110/71; PULSE 66; RESP 18; O2SAT 97
[2017-10-28] MEDS ORDERED: ALUMINUM/MAGNESIUM/SIMETH 30 ML CUP PO PRN (16:30)
[2017-10-28] MEDS ORDERED: MAGNESIUM HYDROXIDE SUSP 30 ML CUP PO PRN (16:30)
[2017-10-28] MEDS ORDERED: ACETAMINOPHEN 325 MG TAB PO PRN (16:30)
[2017-10-28] MEDS ORDERED: LORazepam 1 MG TAB PO PRN (16:30)
[2017-10-28] MEDS ORDERED: LORazepam 2 MG/ML VIAL IM PRN (16:30)
[2017-10-28 18:20] VITALS: BP 111/70; PULSE 64; RESP 16; TEMP 97.7; O2SAT 98
[2017-10-28] MEDS: REMOVE OLD NICOTINE PATCH T-DERMAL SCH (21:00)
[2017-10-29] MEDS: diphenhydrAMINE HCL 50 MG CAP PO PRN ×2 (00:28→21:12)
[2017-10-29 05:00] VITALS: BP 101/60; PULSE 63; RESP 18; TEMP 97.8; O2SAT 98
[2017-10-29 06:07] LABS: AUTOMATED NEUTROPHIL # 2.3 TH/MM3 (1.8-7.7); BASOPHIL % 0.8 % (0.0-2.0); EOSINOPHIL # 0.2 TH/MM3 (0-0.4); EOSINOPHIL % 3.2 % (0.0-4.0); HEMATOCRIT 40.3 % (35.0-46.0); HEMOGLOBIN 13.9 GM/DL (11.6-15.3); LYMPH % 50.6 % (9.0-44.0); MEAN CELL VOLUME 92.4 FL (80.0-100.0); MEAN CORPUSCULAR HEMOGLOBIN 31.8 PG (27.0-34.0); MEAN CORPUSCULAR HGB CONC 34.5 % (32.0-36.0); MEAN PLATELET VOLUME 8.3 FL (7.0-11.0); MONO % 6.2 % (0.0-8.0); MONOCYTE # 0.4 TH/MM3 (0-0.9); NEUT % 39.2 % (16.0-70.0); PLATELET COUNT 290 TH/MM3 (150-450); RED BLOOD COUNT 4.36 MIL/MM3 (4.00-5.30); RED CELL DISTRIBUTION WIDTH 13.6 % (11.6-17.2)
[2017-10-29 06:29] LABS: BICARBONATE 27.7 MEQ/L (21.0-32.0); CALCIUM 8.9 MG/DL (8.5-10.1); CREATININE 0.78 MG/DL (0.50-1.00)
[2017-10-29] MEDS: NICOTINE 21 MG/24 HR PATCH T-DERMAL SCH (09:00)
[2017-10-29] MEDS: NITROFURANTOIN MONOHYD MACROCR 100 MG CAP PO SCH ×2 (09:00→18:37)
[2017-10-29] MEDS: QUEtiapine FUMARATE 25 MG TAB PO SCH (12:00)
[2017-10-29] MEDS: amLODIPine BESYLATE 5 MG TAB PO SCH (12:00)
[2017-10-29] MEDS: LACTOBACILLUS ACIDOPHILUS TAB PO SCH ×2 (12:00→21:12)
[2017-10-29] MEDS ORDERED: hydrOXYzine HCL 50 MG TAB PO PRN (12:00)
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
[2017-10-29 18:00] VITALS: BP 98/59; PULSE 70; RESP 17; TEMP 97.8; O2SAT 99
[2017-10-29] MEDS: REMOVE OLD NICOTINE PATCH T-DERMAL SCH (20:41)
[2017-10-29] MEDS ORDERED: QUEtiapine FUMARATE 100 MG TAB PO SCH (21:00)
[2017-10-30 06:00] VITALS: BP 85/52; PULSE 64; RESP 16; TEMP 97.9; O2SAT 100
[2017-10-30] MEDS: NICOTINE 21 MG/24 HR PATCH T-DERMAL SCH (07:16)
[2017-10-30] MEDS: amLODIPine BESYLATE 5 MG TAB PO SCH (09:00)
[2017-10-30] MEDS: QUEtiapine FUMARATE 25 MG TAB PO SCH (09:00)
[2017-10-30] MEDS: NITROFURANTOIN MONOHYD MACROCR 100 MG CAP PO SCH ×2 (09:00→18:00)
[2017-10-30] MEDS: LACTOBACILLUS ACIDOPHILUS TAB PO SCH ×2 (09:00→20:29)
--- NOTE | 2017-10-30 12:05 | HHI.PYPN ---
Subjective Remarks The patient was seen today for psychiatric reevaluation along with nurse in charge and also with medical student Dr. Rodriges, chart was reviewed, with psychiatric evaluation today the patient is found sleeping, she is arousable, but very irritable stating that at this moment is difficult for her to talk because she just woke up. The patient reports that she feels a little bit better, she denies suicidal and homicidal ideation, she denies visual and auditory hallucinations. The patient is unable to elaborate about the circumstances behind her recent suicidal attempt. She seems to be minimizing about it. She has been taking her medications, requesting to be prescribed back in her outpatient dose of Seroquel. She is fully oriented 3, no attention deficit, no gross cognitive impairment present. Compliant with medications, no significant side effects reported. Mental Status Examination Appearance: Appropriate Consciousness: Alert Orientation: x4 Motor Activity: Normal gait Speech: Unremarkable Language: Adequate Fund of Knowledge: Inadequate Attention and Concentration: Adequate Memory: Unremarkable Mood: Anxious Affect: Other (guarded) Thought Process & Associations: Linear Thought Content: Delusional Hallucination Type: None Delusion Type: Paranoid Suicidal Ideation: Yes Suicidal Plan: No Suicidal Intention: No Homicidal Ideation: No Homicidal Plan: No Homicidal Intention: No Insight: Poor Judgment: Poor Results Labs Date/Time Source Procedure Growth Status 10/26/17 00:35 Urine Random Urine Urine Culture - Final 50-100,000 CFU/ML MIXED GRAM POSITIVE... Complete Vitals/IOs Vital Signs Date Time Temp Pulse Resp B/P (MAP) Pulse Ox O2 Delivery O2 Flow Rate FiO2 10/30/17 06:00 97.9 64 16 85/52 (63) 100 10/29/17 08:07 Nasal Cannula 2.00 Intake and Output 10/30/17 10/30/17 10/30/17 07:59 15:59 23:59 Intake Total 240 ml 360 ml Balance 240 ml 360 ml Assessment & Plan Problem List: (1) Adjustment disorder with mixed disturbance of emotions and conduct ICD Codes: F43.25 - Adjustment disorder with mixed disturbance of emotions and conduct Assessment & Plan: On patient continues to be very irritable, superficially cooperative, minimizing symptoms of depression and recent suicidal attempts, having difficulty sleeping at night. I will increase the Seroquel to 300 mg at bedtime to help with poor impulse control and irritability. I also have reviewed the documentation of Dr. Mireles and I agree and concur with this assessment and plan. I have signed a second psychiatrist for second opinion. (2) Polysubstance abuse ICD Codes: F19.10 - Other psychoactive substance abuse, uncomplicated Assessment & Plan Estimated LOS: days Justification for Cont. Inpt. Patient has an increased risk to decompensate at a lower level of care. Ian Guardado MD Oct 30, 2017 12:05
[2017-10-30 18:21] VITALS: BP 113/58; PULSE 77; RESP 16; TEMP 98.1; O2SAT 99
[2017-10-30] MEDS: REMOVE OLD NICOTINE PATCH T-DERMAL SCH (20:56)
[2017-10-30] MEDS ORDERED: QUEtiapine FUMARATE 100 MG TAB PO SCH (21:00)
[2017-10-31 06:00] VITALS: BP 94/54; PULSE 83; RESP 18; TEMP 97.6; O2SAT 98
[2017-10-31] MEDS: LACTOBACILLUS ACIDOPHILUS TAB PO SCH (09:00)
[2017-10-31] MEDS: QUEtiapine FUMARATE 25 MG TAB PO SCH (09:00)
[2017-10-31] MEDS: NICOTINE 21 MG/24 HR PATCH T-DERMAL SCH (09:00)
[2017-10-31] MEDS: NITROFURANTOIN MONOHYD MACROCR 100 MG CAP PO SCH (09:00)
[2017-10-31] MEDS: amLODIPine BESYLATE 5 MG TAB PO SCH (09:15)
[2017-10-31] MEDS ORDERED: QUET1TAB10 PO (09:37)
[2017-10-31] MEDS ORDERED: AMLO5TAB2 PO (09:37)
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
== END 2017-10-31 17:35 | disposition home or self-care (01) | DRG 882 ==
LOC: NEPD 19:48 → NEDA 10-28 12:41 → H4EA 10-28 13:22 → H260 10-30 22:29
PROVIDERS: ADMIT Student in an Organized Health Care Education/Training Program; ATTEND Student in an Organized Health Care Education/Training Program
DX: F43.25 Adjustment disorder with mixed disturbance of emotions and conduct (principal); R45.851 Suicidal ideations; Z91.19 Patient's noncompliance with other medical treatment and regimen; N39.0 Urinary tract infection, site not specified; I10 Essential (primary) hypertension; Z91.5 Personal history of self-harm; F14.90 Cocaine use, unspecified, uncomplicated; F19.10 Other psychoactive substance abuse, uncomplicated; Z81.8 Family history of other mental and behavioral disorders; Z91.410 Personal history of adult physical and sexual abuse; Z85.828 Personal history of other malignant neoplasm of skin; Z72.0 Tobacco use
CPT/HCPCS: 80048; 80053; 80307; 81001; 84443; 84703; 85025; 87086; 99285; Q0163

== ENCOUNTER 2017-12-01 08:04 | Emergency (ER) | payer SELFPAY ==
[~2017-12-01] VITALS: Ht 162.6 cm; Wt 12.0 kg
[~2017-12-01 08:04] MED LIST changes: +NITR100C4 PO; +QUET1TAB10 PO; -QUET1TAB8 PO
[2017-12-01 08:28] VITALS: BP 171/64; PULSE 136; RESP 18; TEMP 97.4; O2SAT 100
[2017-12-01] MEDS ORDERED: SODIUM CHLOR 0.9% 1000 ML INJ 1,000 ML IV SCH (08:54)
[2017-12-01 08:58] VITALS: BP 174/68; PULSE 105; RESP 17; O2SAT 100
[2017-12-01] MEDS ORDERED: SODIUM CHLORIDE 0.9% FLUSH 10 ML FLUSH IV FLUSH PRN (09:00)
[2017-12-01] MEDS ORDERED: HALOPERIDOL 5 MG TAB PO ONE (09:00)
--- NOTE | 2017-12-01 09:00 | PD ---
HPI Chief Complaint: Altered Mental Status Time Seen by Provider: 08:43 Travel History International Travel<30 days: No Contact w/Intl Traveler<30days: No Traveled to known affect area: No History of Present Illness HPI The patient is a 37-year-old female who presents to the emergency department for altered mental status and confusion. The patient was found lying in the grass out in front of the emergency department. She states she was trying to come to the hospital because she feels confused. The patient has been admitted several times recently for psychosis and undergone medical evaluation and psychiatric evaluation. The patient was placed on Seroquel, however, states she has not been taking her Seroquel. She does feel paranoid, does not believe that this is a real hospital or that the nurses and physicians are real nurses and physicians. She denies any suicidal ideation or homicidal ideation. She denies illicit drug use, but does have a history of illicit drug use including methamphetamines and cocaine. She denies any physical complaints , however, is a limited historian. She is unsure if she has been drinking alcohol. PFSH Past Medical History Hx Anticoagulant Therapy: No Anxiety: Yes Depression: Yes Cancer: Yes ("Basal carcinoma on chest and in ear") Cardiovascular Problems: No Chemotherapy: No Cerebrovascular Accident: No Diabetes: No Diminished Hearing: No (UTO) Endocrine: No Genitourinary: No Hypertension: Yes Immune Disorder: No Musculoskeletal: Yes Neurologic: Yes Psychiatric: Yes Reproductive: No Respiratory: No Radiation Therapy: No Seizures: Yes Tetanus Vaccination: Unknown Influenza Vaccination: No ?: Unknown LMP: UTD Past Surgical History Surgical History: Unable to Obtain Hysterectomy: No Other Surgery: No Social History Alcohol Use: No Tobacco Use: No Substance Use: Yes (cocaine) Allergies-Medications (Allergen,Severity, Reaction): Coded Allergies: No Known Allergies (Verified Allergy, Unknown, 12/01/17) Reported Meds & Prescriptions Reported Meds & Active Scripts Active Quetiapine (Quetiapine Fumarate) 300 Mg Tab 300 Mg PO HS Review of Systems ROS Limitations: Altered Mental Status, Psychotic Except as stated in HPI: all other systems reviewed are Neg Cardiovascular: No: Chest Pain or Discomfort Respiratory: No: Shortness of Breath Gastrointestinal: No: Nausea, Vomiting, Abdominal Pain Neurologic: Positive: Change in Mentation Psychiatric: Positive: Disorder of Thought, Substance Abuse, No: Suicidal Ideations, Homicidal Ideation Physical Exam Narrative GENERAL: 37-year-old female who is very paranoid. SKIN: Focused skin assessment warm/dry. HEAD: Atraumatic. Normocephalic. EYES: Pupils equal and round. 3 mm bilateral and reactive. ENT: No nasal bleeding or discharge. Dry mucous membranes. NECK: Trachea midline. No JVD. CARDIOVASCULAR: Regular rate and rhythm. No murmur appreciated. RESPIRATORY: No accessory muscle use. Clear to auscultation. Breath sounds equal bilaterally. MUSCULOSKELETAL: No obvious deformities. No clubbing. No cyanosis. No edema. NEUROLOGICAL: Awake and alert. No obvious cranial nerve deficits. Motor grossly within normal limits. Normal speech. 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 PSYCHIATRIC: Paranoid. Data Data Last Documented VS Vital Signs Date Time Temp Pulse Resp B/P (MAP) Pulse Ox O2 Delivery O2 Flow Rate FiO2 12/02/17 03:41 12/01/17 22:08 98.4 15 Room Air 12/01/17 20:03 73 98 Orders Orders Electrocardiogram (12/01/17 08:54) Ammonia (12/01/17 08:54) Complete Blood Count With Diff (12/01/17 08:54) Comprehensive Metabolic Panel (12/01/17 08:54) Creatine Kinase (Cpk) (12/01/17 08:54) Prothrombin Time / Inr (Pt) (12/01/17 08:54) Act Partial Throm Time (Ptt) (12/01/17 08:54) Thyroid Stimulating Hormone (12/01/17 08:54) Urinalysis - C+S If Indicated (12/01/17 08:54) Blood Glucose (12/01/17 08:54) Ecg Monitoring (12/01/17 08:54) Iv Access Insert/Monitor (12/01/17 08:54) Oximetry (12/01/17 08:54) Sodium Chloride 0.9% Flush (Ns Flush) (12/01/17 09:00) Sodium Chlor 0.9% 1000 Ml Inj (Ns 1000 M (12/01/17 08:54) Drug Screen, Random Urine (12/01/17 08:54) Alcohol (Ethanol) (12/01/17 08:54) Haloperidol (Haldol) (12/01/17 09:00) Psych Screen (12/01/17 08:54) Lactic Acid (12/01/17 08:54) Diet Regular Basic (12/01/17 Dinner) Urine Culture (12/01/17 15:30) Labs Laboratory Tests Test 12/01/17 09:10 12/01/17 15:30 White Blood Count 11.1 TH/MM3 Red Blood Count 4.67 MIL/MM3 Hemoglobin 15.0 GM/DL Hematocrit 42.9 % Mean Corpuscular Volume 91.8 FL Mean Corpuscular Hemoglobin 32.2 PG Mean Corpuscular Hemoglobin Concent 35.1 % Red Cell Distribution Width 13.1 % Platelet Count 285 TH/MM3 Mean Platelet Volume 7.7 FL Neutrophils (%) (Auto) 71.9 % Lymphocytes (%) (Auto) 20.4 % Monocytes (%) (Auto) 6.5 % Eosinophils (%) (Auto) 0.4 % Basophils (%) (Auto) 0.8 % Neutrophils # (Auto) 8.0 TH/MM3 Lymphocytes # (Auto) 2.3 TH/MM3 Monocytes # (Auto) 0.7 TH/MM3 Eosinophils # (Auto) 0.0 TH/MM3 Basophils # (Auto) 0.1 TH/MM3 CBC Comment DIFF FINAL Differential Comment Prothrombin Time 10.7 SEC Prothromb Time International Ratio 1.1 RATIO Activated Partial Thromboplast Time 22.4 SEC Blood Urea Nitrogen 11 MG/DL Creatinine 0.76 MG/DL Random Glucose 113 MG/DL Total Protein 7.8 GM/DL Albumin 4.2 GM/DL Calcium Level 8.6 MG/DL Alkaline Phosphatase 61 U/L Aspartate Amino Transf (AST/SGOT) 21 U/L Alanine Aminotransferase (ALT/SGPT) 26 U/L Total Bilirubin 0.3 MG/DL Sodium Level 139 MEQ/L Potassium Level 3.9 MEQ/L Chloride Level 104 MEQ/L Carbon Dioxide Level 24.2 MEQ/L Anion Gap 11 MEQ/L Estimat Glomerular Filtration Rate 85 ML/MIN Lactic Acid Level 1.5 mmol/L Ammonia 17 MCMOL/L Total Creatine Kinase 46 U/L Thyroid Stimulating Hormone 3rd Gen 0.667 uIU/ML Ethyl Alcohol Level LESS THAN 3 MG/DL Urine Color YELLOW Urine Turbidity HAZY Urine pH 6.0 Urine Specific [place] 1.020 Urine Protein 30 mg/dL Urine Glucose (UA) NEG mg/dL Urine Ketones TRACE mg/dL Urine Occult Blood TRACE Urine Nitrite NEG Urine Bilirubin NEG Urine Urobilinogen LESS THAN 2.0 MG/DL Urine Leukocyte Esterase LARGE Urine RBC 83 /hpf Urine WBC 164 /hpf Urine Squamous Epithelial Cells 415 /hpf Urine Bacteria MOD /hpf Urine Mucus MANY /lpf Microscopic Urinalysis Comment CULTURE INDICATED Urine Opiates Screen NEG Urine Barbiturates Screen NEG Urine Amphetamines Screen NEG Urine Benzodiazepines Screen NEG Urine Cocaine Screen NEG Urine Cannabinoids Screen NEG MDM Medical Decision Making Medical Screen Exam Complete: Yes Emergency Medical Condition: Yes Medical Record Reviewed: Yes Interpretation(s) EKG reveals sinus tachycardia with a heart rate of 111. Nonspecific T wave changes. Laboratory Tests Test 12/01/17 09:10 12/01/17 15:30 White Blood Count 11.1 TH/MM3 Red Blood Count 4.67 MIL/MM3 Hemoglobin 15.0 GM/DL Hematocrit 42.9 % Mean Corpuscular Volume 91.8 FL Mean Corpuscular Hemoglobin 32.2 PG Mean Corpuscular Hemoglobin Concent 35.1 % Red Cell Distribution Width 13.1 % Platelet Count 285 TH/MM3 Mean Platelet Volume 7.7 FL Neutrophils (%) (Auto) 71.9 % Lymphocytes (%) (Auto) 20.4 % Monocytes (%) (Auto) 6.5 % Eosinophils (%) (Auto) 0.4 % Basophils (%) (Auto) 0.8 % Neutrophils # (Auto) 8.0 TH/MM3 Lymphocytes # (Auto) 2.3 TH/MM3 Monocytes # (Auto) 0.7 TH/MM3 Eosinophils # (Auto) 0.0 TH/MM3 Basophils # (Auto) 0.1 TH/MM3 CBC Comment DIFF FINAL Differential Comment Prothrombin Time 10.7 SEC Prothromb Time International Ratio 1.1 RATIO Activated Partial Thromboplast Time 22.4 SEC Blood Urea Nitrogen 11 MG/DL Creatinine 0.76 MG/DL Random Glucose 113 MG/DL Total Protein 7.8 GM/DL Albumin 4.2 GM/DL Calcium Level 8.6 MG/DL Alkaline Phosphatase 61 U/L Aspartate Amino Transf (AST/SGOT) 21 U/L Alanine Aminotransferase (ALT/SGPT) 26 U/L Total Bilirubin 0.3 MG/DL Sodium Level 139 MEQ/L Potassium Level 3.9 MEQ/L Chloride Level 104 MEQ/L Carbon Dioxide Level 24.2 MEQ/L Anion Gap 11 MEQ/L Estimat Glomerular Filtration Rate 85 ML/MIN Lactic Acid Level 1.5 mmol/L Ammonia 17 MCMOL/L Total Creatine Kinase 46 U/L Thyroid Stimulating Hormone 3rd Gen 0.667 uIU/ML Ethyl Alcohol Level LESS THAN 3 MG/DL Urine Color YELLOW Urine Turbidity HAZY Urine pH 6.0 Urine Specific [place] 1.020 Urine Protein 30 mg/dL Urine Glucose (UA) NEG mg/dL Urine Ketones TRACE mg/dL Urine Occult Blood TRACE Urine Nitrite NEG Urine Bilirubin NEG Urine Urobilinogen LESS THAN 2.0 MG/DL Urine Leukocyte Esterase LARGE Urine RBC 83 /hpf Urine WBC 164 /hpf Urine Squamous Epithelial Cells 415 /hpf Urine Bacteria MOD /hpf Urine Mucus MANY /lpf Microscopic Urinalysis Comment CULTURE INDICATED Urine Opiates Screen NEG Urine Barbiturates Screen NEG Urine Amphetamines Screen NEG Urine Benzodiazepines Screen NEG Urine Cocaine Screen NEG Urine Cannabinoids Screen NEG Differential Diagnosis Differential diagnosis includes psychosis, schizophrenia, schizoaffective disorder, substance induced mood disorder, alcohol intoxication, tertiary syphilis, metabolic encephalopathy. Narrative Course IV was established, labs are drawn and sent, and the patient was placed on cardiac telemetry monitoring and continuous pulse oximetry monitoring. EKG was ordered and interpreted. Tox screen and alcohol level were sent to us lab. Psychiatric evaluation was ordered. The patient was administered Haldol 5 mg orally. Labs are unremarkable except for a UA that is positive. The patient will be prescribed Cipro. The patient was placed under Beasley act. Patient was evaluated by psychiatry, disposition is per psych. Diagnosis Primary Impression: Other psychotic disorder not due to a substance or known physiological condition Additional Impression: UTI (urinary tract infection) Qualified Codes: N30.00 - Acute cystitis without hematuria Patient Instructions: General Instructions Additional Instructions: Cipro as directed. Disposition as per psych. Med/Other Pt SpecificInfo: Prescription(s) given Disposition: DISCHARGE HOME Condition: Stable Murali Reyes MD Dec 01, 2017 09:00
[2017-12-01 09:37] LABS: BASOPHIL # 0.1 TH/MM3 (0-0.2); BASOPHIL % 0.8 % (0.0-2.0); EOSINOPHIL % 0.4 % (0.0-4.0); HEMATOCRIT 42.9 % (35.0-46.0); LYMPH % 20.4 % (9.0-44.0); LYMPHOCYTE # 2.3 TH/MM3 (1.0-4.8); MEAN CELL VOLUME 91.8 FL (80.0-100.0); MEAN CORPUSCULAR HEMOGLOBIN 32.2 PG (27.0-34.0); MEAN CORPUSCULAR HGB CONC 35.1 % (32.0-36.0); MEAN PLATELET VOLUME 7.7 FL (7.0-11.0); MONO % 6.5 % (0.0-8.0); MONOCYTE # 0.7 TH/MM3 (0-0.9); NEUT % 71.9 % (16.0-70.0); PLATELET COUNT 285 TH/MM3 (150-450); RED BLOOD COUNT 4.67 MIL/MM3 (4.00-5.30); RED CELL DISTRIBUTION WIDTH 13.1 % (11.6-17.2); WHITE BLOOD COUNT 11.1 TH/MM3 (4.0-11.0)
[2017-12-01 09:41] LABS: INTERNATIONAL NORMALIZED RATIO 1.1 RATIO; PROTHROMBIN TIME - PATIENT 10.7 SEC (9.8-11.6)
[2017-12-01 09:45] LABS: ALBUMIN 4.2 GM/DL (3.4-5.0); AST (GOT) 21 U/L (15-37); BICARBONATE 24.2 MEQ/L (21.0-32.0); BLOOD UREA NITROGEN 11 MG/DL (7-18); CALCIUM 8.6 MG/DL (8.5-10.1); CHLORIDE 104 MEQ/L (98-107); CREATININE 0.76 MG/DL (0.50-1.00); GLOMERULAR FILTRATION RATE 85 ML/MIN (>89); GLUCOSE,RANDOM 113 MG/DL (74-106); SODIUM (NA) 139 MEQ/L (136-145)
[2017-12-01 09:46] LABS: ALT (GPT) 26 U/L (10-53)
[2017-12-01 09:56] LABS: ALKALINE PHOSPHATASE 61 U/L (45-117); TOTAL BILIRUBIN ADULT 0.3 MG/DL (0.2-1.0); TOTAL PROTEIN 7.8 GM/DL (6.4-8.2)
--- NOTE | 2017-12-01 14:58 | EKG ---
Date Performed: 12/01/2017 Time Performed: 09:13:52 PTAGE: 37 years EKG: SINUS TACHYCARDIA NONSPECIFIC T-WAVE ABNORMALITY ABNORMAL ECG Compared to prior electrocard iogram, rate has increased and Nonspecific T wave changes are now present PREVIOUS TRACING : 10/09/2017 18.36 DOCTOR: Alan Harris Interpretating Date/Time 12/01/2017 14:57:46
[2017-12-01 18:30] LABS: BACTERIA, URINE MOD /hpf; BILIRUBIN, URINE NEG (NEG); BLOOD, URINE TRACE (NEG); GLUCOSE,URINE NEG (NEG); KETONE, URINE TRACE mg/dL (NEG); MUCUS URINE MANY /lpf (OCC); NITRITE,URINE NEG (NEG); SQUAMOUS EPITHELIAL CELL URINE 415 /hpf (0-5); URINE COLOR YELLOW (YELLW/STRAW); URINE LEUKOCYTE ESTERASE LARGE (NEG)
[2017-12-01 20:03] VITALS: BP 129/72; PULSE 73; RESP 18; O2SAT 98
[2017-12-01 22:08] VITALS: RESP 15; TEMP 98.4
[2017-12-02] MEDS ORDERED: CIPR-9 PO (07:12)
== END 2017-12-02 06:28 ==
LOC: NEPE 08:04 → NEPJ 12-02 06:28
DX: N39.0 Urinary tract infection, site not specified (principal); F23 Brief psychotic disorder; R00.0 Tachycardia, unspecified; R94.31 Abnormal electrocardiogram [ECG] [EKG]; F41.9 Anxiety disorder, unspecified; F32.9 Major depressive disorder, single episode, unspecified; I10 Essential (primary) hypertension; R56.9 Unspecified convulsions
CPT/HCPCS: 80053; 80307; 81001; 82140; 82550; 83605; 84443; 85025; 85610; 85730; 87086; 93005; 96360; 99284; J7030

== ENCOUNTER 2018-01-01 14:45 | Inpatient (IN) | payer OTHER ==
[~2018-01-01] VITALS: Ht 162.6 cm; Wt 61.4 kg
[~2018-01-01 14:45] MED LIST changes: -AMLO5TAB2 PO; +CIPR-9 PO; -LACT PO; -NITR100C4 PO; -ROPI.25 PO; -SERO25TA PO
[2018-01-01 14:55] VITALS: BP 111/75; PULSE 95; RESP 18; TEMP 98.9; O2SAT 100
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
[2018-01-01 16:04] LABS: AUTOMATED NEUTROPHIL # 4.5 TH/MM3 (1.8-7.7); BASOPHIL % 0.6 % (0.0-2.0); EOSINOPHIL # 0.1 TH/MM3 (0-0.4); EOSINOPHIL % 1.2 % (0.0-4.0); HEMATOCRIT 44.9 % (35.0-46.0); HEMOGLOBIN 15.4 GM/DL (11.6-15.3); LYMPH % 35.4 % (9.0-44.0); LYMPHOCYTE # 2.8 TH/MM3 (1.0-4.8); MEAN CELL VOLUME 93.6 FL (80.0-100.0); MEAN CORPUSCULAR HGB CONC 34.3 % (32.0-36.0); MEAN PLATELET VOLUME 7.6 FL (7.0-11.0); MONO % 5.5 % (0.0-8.0); MONOCYTE # 0.4 TH/MM3 (0-0.9); NEUT % 57.3 % (16.0-70.0); PLATELET COUNT 309 TH/MM3 (150-450); RED CELL DISTRIBUTION WIDTH 12.5 % (11.6-17.2); WHITE BLOOD COUNT 7.9 TH/MM3 (4.0-11.0)
[2018-01-01 16:06] LABS: BACTERIA, URINE RARE /hpf; BILIRUBIN, URINE NEG (NEG); BLOOD, URINE NEG (NEG); GLUCOSE,URINE NEG (NEG); KETONE, URINE 40 mg/dL (NEG); NITRITE,URINE NEG (NEG); PH, URINE 6.5 (5.0-8.5); SQUAMOUS EPITHELIAL CELL URINE 2 /hpf (0-5); URINE COLOR YELLOW (YELLW/STRAW); URINE LEUKOCYTE ESTERASE LARGE (NEG)
[2018-01-01 16:20] LABS: ALBUMIN 4.1 GM/DL (3.4-5.0); AST (GOT) 53 U/L (15-37); BICARBONATE 23.7 MEQ/L (21.0-32.0); BLOOD UREA NITROGEN 9 MG/DL (7-18); CALCIUM 9.2 MG/DL (8.5-10.1); CHLORIDE 103 MEQ/L (98-107); CREATININE 0.69 MG/DL (0.50-1.00); GLOMERULAR FILTRATION RATE 95 ML/MIN (>89); GLUCOSE,RANDOM 85 MG/DL (74-106); SODIUM (NA) 137 MEQ/L (136-145)
[2018-01-01 16:32] LABS: ALKALINE PHOSPHATASE 71 U/L (45-117); ALT (GPT) 134 U/L (10-53); TOTAL BILIRUBIN ADULT 0.7 MG/DL (0.2-1.0); TOTAL PROTEIN 8.1 GM/DL (6.4-8.2)
[2018-01-01 16:45] LABS: ACETAMINOPHEN LESS THAN 2.0 MCG/ML (10.0-30.0)
[2018-01-01] MEDS ORDERED: LORazepam 2 MG TAB PO PRN (17:15)
[2018-01-01] MEDS ORDERED: LORazepam 2 MG/ML VIAL IV PUSH PRN ×4 (17:15)
[2018-01-01] MEDS ORDERED: FLUMAZENIL 0.5 MG/5 ML VIAL IV PUSH PRN (17:15)
[2018-01-01] MEDS ORDERED: LORazepam 1 MG TAB PO PRN (17:15)
[2018-01-01 18:47] VITALS: BP 108/80; PULSE 77; RESP 16; O2SAT 100
[2018-01-01 19:34] VITALS: BP 114/79; PULSE 81; RESP 18; O2SAT 98
[2018-01-01] MEDS ORDERED: AMLO5TAB2 PO (19:35)
[2018-01-02 05:34] VITALS: BP 125/67; PULSE 91; RESP 12; TEMP 98.1; O2SAT 96
[2018-01-02] MEDS ORDERED: OLANZapine 5 MG TAB PO ONE (06:45)
[2018-01-02] MEDS ORDERED: MAGNESIUM HYDROXIDE SUSP 30 ML CUP PO PRN (14:30)
[2018-01-02] MEDS ORDERED: ALUMINUM/MAGNESIUM/SIMETH 30 ML CUP PO PRN (14:30)
[2018-01-02] MEDS ORDERED: NICOTINE 21 MG/24 HR PATCH T-DERMAL PRN (14:30)
[2018-01-02] MEDS ORDERED: ACETAMINOPHEN 325 MG TAB PO PRN (14:30)
[2018-01-02 16:10] VITALS: BP 113/60; PULSE 84; RESP 16; TEMP 98.7; O2SAT 99
[2018-01-02 17:30] VITALS: BP 109/75; PULSE 76; RESP 18; TEMP 97.9
--- NOTE | 2018-01-02 21:34 | EKG ---
Date Performed: 01/01/2018 Time Performed: 15:50:39 PTAGE: 37 years EKG: Sinus rhythm NORMAL ECG PREVIOUS TRACING : 12/01/2017 09.13 Since the previous tracing, no significant change noted DOCTOR: Richard Duong Interpretating Date/Time 01/02/2018 21:32:52
[2018-01-03 06:00] VITALS: BP 113/66; PULSE 70; RESP 16; TEMP 97.6; O2SAT 98
[2018-01-03] MEDS: amLODIPine BESYLATE 5 MG TAB PO SCH (09:15)
[2018-01-03] MEDS: hydrOXYzine HCL 50 MG TAB PO PRN (14:18)
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
[2018-01-03 18:00] VITALS: BP 112/62; PULSE 72; RESP 16; TEMP 97.9; O2SAT 97
[2018-01-03] MEDS ORDERED: QUEtiapine FUMARATE 100 MG TAB PO SCH (21:00)
[2018-01-04 06:05] VITALS: BP 100/57; PULSE 71; RESP 16; TEMP 96.6; O2SAT 95
[2018-01-04] MEDS: amLODIPine BESYLATE 5 MG TAB PO SCH (09:00)
--- NOTE | 2018-01-04 11:46 | HHI.PYPN ---
Subjective Remarks Patient seen for follow, chart reviewed. Discussion nursing staff reported patient continues to be noted to be bizarre, continues to endorse auditory hallucinations and scoring low on CIWA. Patient was found sitting in hospital bed noted B, cooperative but also noted to be internally preoccupied with some thought delay during interview. Patient states that she feels "a little better ", noted to be more engaging interview today. Patient does not recall conversation with policy writer sales yesterday. Patient continues to endorse auditory hallucinations when asked about content states "I do not know". Patient also states that she continues to have racing thoughts and difficulty with concentration. Review of Systems Except as stated in HPI: all other systems reviewed are Neg Mental Status Examination Appearance: Disheveled Consciousness: Alert Orientation: Person Motor Activity: Normal gait Speech: Slow Language: Adequate Fund of Knowledge: Inadequate Attention and Concentration: Inadequate Memory: Impaired (Surrounding events prior to her admission) Mood: Other ("A little better") Affect: Blunt Thought Process & Associations: Disorganized, Other (Poverty of thought) Thought Content: Hallucinations Hallucination Type: Auditory Delusion Type: Paranoid Suicidal Ideation: Yes Suicidal Plan: No Suicidal Intention: No Homicidal Ideation: No Homicidal Plan: No Homicidal Intention: No Insight: Poor Judgment: Poor Results Vitals/IOs Vital Signs Date Time Temp Pulse Resp B/P (MAP) Pulse Ox O2 Delivery O2 Flow Rate FiO2 01/04/18 06:05 96.6 71 16 100/57 (71) 95 01/02/18 16:10 Room Air Assessment & Plan Problem List: (1) Unspecified psychosis ICD Codes: F29 - Unspecified psychosis not due to a substance or known physiological condition (2) Polysubstance abuse ICD Codes: F19.10 - Other psychoactive substance abuse, uncomplicated Assessment & Plan Patient continues with disorganization, paranoia, and auditory hallucinations. We will increase quetiapine to 200 mg p.o. at bedtime with upward titration for psychosis. Continue to monitor mood and behavior. Continue CIWA protocol. Discharge planning in progress. Justification for Cont. Inpt. At risk of further decompensation at lower level of care. Discharge Planning To be determined. Trent Mireles MD Jan 04, 2018 11:46
--- NOTE | 2018-01-04 12:37 | PD.PSY.CON ---
Provisional Diagnosis Admission Date Jan 02, 2018 at 14:16 [place] I. Unspecified psychosis, polysubstance use disorder History of Present Illness Service Psychiatry Consult Requested By Psychiatry Reason for Consult Second opinion Primary Care Physician No Primary Care Physician HPI Patient is a 37-year-old woman, , unemployed, domicile was friend with a past psychiatric history as bipolar disorder, schizophrenia as per patient, polysubstance use disorder (cocaine, amphetamines, alcohol), with 3 previous psychiatric admissions, one previous suicide attempt (recently in September of this year), was brought in under [employer] [employer] act due to suicidal ideations and plan to jump from a bridge or shoot herself in the head in the context of medication noncompliance and having been kicked out of her living situation. Patient was found lying hospital bed noted B confused, paranoid and poor historian at this time. Patient states that she is not sure how she came to the hospital in the last thing she remembered was trying to get her prescriptions of medications which she does not recall at this time. Patient reports having last been seen at [facility] but was unable to provide details. Patient reports having difficulty with sleep and energy and recently, along with feeling paranoid and having auditory hallucinations. Patient states that she has also hallucinations when she does not take her medications. Patient also endorses suicide ideations at this time along with feeling depressed, denies any recent substance use. Patient noted to be paranoid with policy writer sales taking notes during interview. Urine toxicology was positive for amphetamines and benzodiazepines. The patient is a 37-year-old woman, , domiciled with a friend , unemployed at the moment, with psychiatric history of bipolar disorder, schizophrenia, polysubstance dependence, 2 previous psychiatric hospitalizations , suicide attempts, medical history hypertension, who was hospitalized on the [employer] act due to suicidal ideation with a plan of jumping off a bridge in the context of noncompliant with her medications. She was consulted to me for second opinion. On psychiatric evaluation the patient is calm, cooperative, a little bit disorganized. She reports that she feels much better today, she says that she has been hearing voices, but now she is fine. She denies suicidal enemas ideation, she denies visual and auditory hallucinations. Review of Systems Constitutional: DENIES: Diaphoretic episodes, Fatigue, Fever, Weight gain, Weight loss, Chills, Dizziness, Change in appetite, Night Sweats Endocrine: DENIES: Abnorml menstrual pattern, Heat/cold intolerance, Polydipsia , Polyuria, Polyphagia Eyes: DENIES: Blurred vision, Diplopia, Eye inflammation, Eye pain, Vision loss , Photosensitivity, Double Vision Ears, nose, mouth, throat: DENIES: Tinnitus, Hearing loss, Vertigo, Nasal discharge, Oral lesions, Throat pain, Hoarseness, Ear Pain, Running Nose, Epistaxis, Sinus Pain, Toothache, Odynophagia Cardiovascular: DENIES: Chest pain, Palpitations, Syncope, Dyspnea on Exertion , PND, Lower Extremity Edema, Orthopnea, Claudication Gastrointestinal: DENIES: Abdominal pain, Black stools, Bloody stools, Constipation, Diarrhea, Nausea, Vomiting, Difficulty Swallowing, Anorexia Genitourinary: DENIES: Abnormal vaginal bleeding, Dysmenorrhea, Dyspareunia, Sexual dysfunction, Urinary frequency, Urinary incontinence, Urgency, Hematuria , Dysuria, Nocturia, Vaginal discharge Musculoskeletal: DENIES: Joint pain, Muscle aches, Stiffness, Joint Swelling, Back pain, Neck pain Integumentary: DENIES: Abnormal pigmentation, Pruritus, Rash, Nail changes, Breast masses, Breast skin changes, Nipple discharge Hematologic/lymphatic: DENIES: Bruising, Lymphadenopathy Immunologic/allergic: DENIES: Eczema, Urticaria Neurologic: DENIES: Abnormal gait, Headache, Localized weakness, Paresthesias, Seizures, Speech Problems, Tremor, Poor Balance Psychiatric: DENIES: Anxiety, Confusion, Mood changes, Depression, Hallucinations, Agitation, Suicidal Ideation, Homicidal Ideation, Delusions Past Family Social History Coded Allergies: No Known Allergies (Verified Allergy, Unknown, 12/01/17) Active Scripts Quetiapine (Quetiapine) 300 Mg Tab, 300 MG PO HS for health, #30 TAB 0 Refills Prov:Trent Mireles MD 10/31/17 Reported Medications Amlodipine (Amlodipine) 5 Mg Tab, 5 MG PO DAILY for Blood Pressure Management, # 30 TAB 0 Refills 01/01/18 Discontinued Scripts Ciprofloxacin (Cipro) 500 Mg Tab, 500 MG PO BID for Infection for 7 Days, #14 TAB 0 Refills Prov:Murali Reyes MD 12/02/17 Current Medications Medications (Trade) Dose Ordered Sig/Rani Route Start Time Stop Time Status Last Admin (Romazicon Inj) 0.2 mg Q1M PRN IV PUSH 01/01/18 17:15 (Ativan) 1 mg Q4H PRN PO 01/01/18 17:15 01/03/18 18:25 (Ativan Inj) 1 mg Q4H PRN IV PUSH 01/01/18 17:15 (Ativan) 2 mg Q2H PRN PO 01/01/18 17:15 (Ativan Inj) 2 mg Q2H PRN IV PUSH 01/01/18 17:15 (Ativan Inj) 2 mg Q1H PRN IV PUSH 01/01/18 17:15 (Ativan Inj) 2 mg Q15M PRN IV PUSH 01/01/18 17:15 (Norvasc) 5 mg DAILY PO 01/03/18 09:00 01/03/18 09:15 (Tylenol) 650 mg Q4H PRN PO 01/02/18 14:30 (Milk Of Magnesia Liq) 30 ml DAILY PRN PO 01/02/18 14:30 (Mag-Al Plus Susp Liq) 30 ml Q6H PRN PO 01/02/18 14:30 (Habitrol 21 Mg Patch.24 Hr) 1 patch DAILY PRN T-DERMAL 01/02/18 14:30 (Atarax) 50 mg Q6H PRN PO 01/03/18 14:15 01/03/18 14:18 (Benadryl) 50 mg HS PRN PO 01/03/18 14:15 Miscellaneous Information 1 HS T-DERMAL 01/04/18 21:00 (SEROquel) 200 mg Taper HS PO 01/04/18 21:00 01/16/18 20:59 Patient's Strengths (min. 2) Verbal and communicative Physical Exam Vital Signs Vital Signs Date Time Temp Pulse Resp B/P (MAP) Pulse Ox O2 Delivery O2 Flow Rate FiO2 01/04/18 06:05 96.6 71 16 100/57 (71) 95 01/02/18 16:10 Room Air Mental Status Examination Appearance: Disheveled Consciousness: Alert Orientation: Person Motor Activity: Normal gait Speech: Slow Language: Adequate Fund of Knowledge: Inadequate Attention and Concentration: Inadequate Memory: Impaired (Surrounding events prior to her admission) Mood: Other ("A little better") Affect: Blunt Thought Process & Associations: Disorganized, Other (Poverty of thought) Thought Content: Hallucinations Hallucination Type: Auditory Delusion Type: Paranoid Suicidal Ideation: Yes Suicidal Plan: No Suicidal Intention: No Homicidal Ideation: No Homicidal Plan: No Homicidal Intention: No Insight: Poor Judgment: Poor Assessment & Plan Problem List: (1) Unspecified psychosis ICD Codes: F29 - Unspecified psychosis not due to a substance or known physiological condition Assessment & Plan: I have seen and examined this patient, reviewed documentation, I agree and concur with Dr. Mireles assessment and plan. (2) Polysubstance abuse ICD Codes: F19.10 - Other psychoactive substance abuse, uncomplicated Assessment & Plan Estimated LOS: days Ian Guardado MD Jan 04, 2018 12:37
[2018-01-04 18:15] VITALS: BP 107/65; PULSE 76; RESP 18; TEMP 97.5; O2SAT 98
[2018-01-04] MEDS: hydrOXYzine HCL 50 MG TAB PO PRN (20:00)
[2018-01-04] MEDS ORDERED: QUEtiapine FUMARATE 200 MG TAB PO SCH (21:00)
[2018-01-04] MEDS: REMOVE OLD NICODERM (NICOTINE) PATCH T-DERMAL SCH (21:00)
[2018-01-04] MEDS: QUEtiapine FUMARATE 200 MG TAB PO SCH (21:50)
[2018-01-05 06:24] VITALS: BP 107/58; PULSE 71; RESP 16; TEMP 97.4; O2SAT 100
[2018-01-05] MEDS: amLODIPine BESYLATE 5 MG TAB PO SCH (10:03)
--- NOTE | 2018-01-05 14:03 | HHI.PYPN ---
Subjective Remarks Patient was seen and case discussed with nursing. Patient is flat and minimally engaged. Thought blocking is evident she is likely responding to internal stimuli. She is inconsistent answers that voices are telling her to hurt herself. Psychomotor retardation, some lethargy. Denies suicidal or homicidal ideation intent or plan. Compliant with medications Mental Status Examination Appearance: Disheveled Consciousness: Somnolent Orientation: Person Motor Activity: Normal gait Speech: Slow Language: Adequate Fund of Knowledge: Inadequate Attention and Concentration: Inadequate Memory: Impaired (Surrounding events prior to her admission) Mood: Other ("A little better") Affect: Flat Thought Process & Associations: Disorganized, Other (Poverty of thought) Thought Content: Hallucinations Hallucination Type: Auditory Delusion Type: Paranoid Suicidal Ideation: No (Denies) Suicidal Plan: No Suicidal Intention: No Homicidal Ideation: No Homicidal Plan: No Homicidal Intention: No Insight: Poor Judgment: Poor Results Vitals/IOs Vital Signs Date Time Temp Pulse Resp B/P (MAP) Pulse Ox O2 Delivery O2 Flow Rate FiO2 01/05/18 06:24 97.4 71 16 107/58 (74) 100 01/02/18 16:10 Room Air Assessment & Plan Problem List: (1) Unspecified psychosis ICD Codes: F29 - Unspecified psychosis not due to a substance or known physiological condition (2) Polysubstance abuse ICD Codes: F19.10 - Other psychoactive substance abuse, uncomplicated Assessment & Plan Continue current treatment plan Justification for Cont. Inpt. Patient would decompensate in a less restrictive setting Pranav Campbell DO Jan 05, 2018 14:03
[2018-01-05] MEDS: QUEtiapine FUMARATE 200 MG TAB PO SCH (20:27)
[2018-01-05] MEDS: REMOVE OLD NICODERM (NICOTINE) PATCH T-DERMAL SCH (20:27)
[2018-01-06 06:21] VITALS: BP 109/56; PULSE 84; RESP 16; TEMP 97.6; O2SAT 97
[2018-01-06] MEDS: amLODIPine BESYLATE 5 MG TAB PO SCH (09:23)
--- NOTE | 2018-01-06 14:11 | HHI.PYPN ---
Subjective Remarks Patient was seen and case discussed with nursing. Patient is volitionally mute for my interview. She was speaking with the nurse earlier. But she looks at me blankly and would not answer. Likely responding to internal stimuli Mental Status Examination Appearance: Disheveled Consciousness: Somnolent Orientation: Person Motor Activity: Normal gait Speech: Slow Language: Adequate Fund of Knowledge: Inadequate Attention and Concentration: Inadequate Memory: Impaired (Surrounding events prior to her admission) Mood: Other ("A little better") Affect: Flat Thought Process & Associations: Disorganized, Other (Poverty of thought) Thought Content: Hallucinations, Thought blocking Hallucination Type: Auditory Delusion Type: Paranoid Suicidal Ideation: No (Denies) Suicidal Plan: No Suicidal Intention: No Homicidal Ideation: No Homicidal Plan: No Homicidal Intention: No Insight: Poor Judgment: Poor Results Vitals/IOs Vital Signs Date Time Temp Pulse Resp B/P (MAP) Pulse Ox O2 Delivery O2 Flow Rate FiO2 01/06/18 06:21 97.6 84 16 109/56 (73) 97 01/02/18 16:10 Room Air Assessment & Plan Problem List: (1) Unspecified psychosis ICD Codes: F29 - Unspecified psychosis not due to a substance or known physiological condition (2) Polysubstance abuse ICD Codes: F19.10 - Other psychoactive substance abuse, uncomplicated Assessment & Plan Continue current treatment plan Justification for Cont. Inpt. Patient would decompensate in a less restrictive setting Pranav Campbell DO Jan 06, 2018 14:11
[2018-01-06 15:41] VITALS: BP 100/56; PULSE 75; RESP 18; TEMP 98.6; O2SAT 99
[2018-01-06] MEDS: QUEtiapine FUMARATE 200 MG TAB PO SCH (20:20)
[2018-01-06] MEDS: hydrOXYzine HCL 50 MG TAB PO PRN (20:20)
[2018-01-06] MEDS: REMOVE OLD NICODERM (NICOTINE) PATCH T-DERMAL SCH (20:38)
[2018-01-06] MEDS: diphenhydrAMINE HCL 50 MG CAP PO PRN (23:28)
[2018-01-07 05:49] VITALS: BP 110/58; PULSE 68; RESP 18; TEMP 97.2; O2SAT 97
[2018-01-07] MEDS: amLODIPine BESYLATE 5 MG TAB PO SCH (08:58)
[2018-01-07 16:47] VITALS: BP 105/56; PULSE 59; RESP 18; TEMP 97.4; O2SAT 96
[2018-01-07] MEDS: REMOVE OLD NICODERM (NICOTINE) PATCH T-DERMAL SCH (20:11)
[2018-01-07] MEDS: QUEtiapine FUMARATE 200 MG TAB PO SCH (20:11)
--- NOTE | 2018-01-07 20:31 | HHI.PYPN ---
Subjective Remarks Patient seen for follow, chart reviewed. Discussion nursing staff reported the patient did not eat breakfast, has been mostly in bed, continues to respond to internal stimuli and was noted to be anxious last evening. Patient was found lying hospital bed noted to be asleep but able to wake up to interact with interview today. Patient states that she is feeling "a little depressed" continues report auditory hallucinations but states they are decreasing in intensity and frequency. Patient was not able to express what the voices say stating that she is not able to understand and when she hears them. She reports tolerating medications well. Currently patient states "I am depressed and hearing voices". Review of Systems Except as stated in HPI: all other systems reviewed are Neg Mental Status Examination Appearance: Disheveled Consciousness: Somnolent Orientation: Person Motor Activity: Normal gait Speech: Slow Language: Adequate Fund of Knowledge: Inadequate Attention and Concentration: Inadequate Memory: Impaired (Surrounding events prior to her admission) Mood: Other ("A little better") Affect: Flat Thought Process & Associations: Disorganized, Other (Poverty of thought) Thought Content: Hallucinations, Thought blocking (less today) Hallucination Type: Auditory Delusion Type: Paranoid Suicidal Ideation: No (Denies) Suicidal Plan: No Suicidal Intention: No Homicidal Ideation: No Homicidal Plan: No Homicidal Intention: No Insight: Poor Judgment: Poor Results Vitals/IOs Vital Signs Date Time Temp Pulse Resp B/P (MAP) Pulse Ox O2 Delivery O2 Flow Rate FiO2 01/07/18 16:47 97.4 59 18 105/56 (72) 96 Assessment & Plan Problem List: (1) Unspecified psychosis ICD Codes: F29 - Unspecified psychosis not due to a substance or known physiological condition (2) Polysubstance abuse ICD Codes: F19.10 - Other psychoactive substance abuse, uncomplicated Assessment & Plan Patient at this time continues to endorse feeling depressed along with continued auditory hallucinations but states they are lessening in intensity and duration frequency. Continue current treatment, quetiapine we will continue taper to be increased to 400 mg p.o. at bedtime for psychosis. We will order repeat labs. Continue to monitor mood and behavior. Continue to encourage patient to participate in groups and activities and maintain adequate hygiene. Discharge planning in progress. Justification for Cont. Inpt. At risk for further decompensation if at lower level of care. Trent Mireles MD Jan 07, 2018 20:31
[2018-01-08 06:28] VITALS: BP 99/62; PULSE 71; RESP 18; TEMP 96.7; O2SAT 98
[2018-01-08] MEDS ORDERED: PILL SPLITTER OTHER PRN (08:30)
[2018-01-08] MEDS: amLODIPine BESYLATE 5 MG TAB PO SCH (09:00)
--- NOTE | 2018-01-08 12:45 | HHI.PYPN ---
Subjective Remarks Patient seen for follow, chart reviewed. Discussion nursing staff reported the patient had refused labs this morning, noted to be pacing in the afternoon, slept well, continues to be noted to be responding to internal stimuli. Patient was found lying hospital bed, noted to have missed breakfast stating that she is feeling "okay" although states that she continues to feel little depressed and with continued auditory hallucinations stating "voices are still there". Patient mentions having grown up yesterday from bed and will try to go to groups today. Patient also reports having attempted to reach out to her father and left a message which is a possibility of patient may be discharged to his home when psychiatrically stable. Review of Systems Except as stated in HPI: all other systems reviewed are Neg Mental Status Examination Appearance: Disheveled Consciousness: Somnolent Orientation: Person Motor Activity: Normal gait Speech: Slow Language: Adequate Fund of Knowledge: Inadequate Attention and Concentration: Inadequate Memory: Impaired (Surrounding events prior to her admission) Mood: Other ("A little better") Affect: Flat Thought Process & Associations: Disorganized, Other (Poverty of thought) Thought Content: Hallucinations, Thought blocking (less today) Hallucination Type: Auditory Delusion Type: Paranoid Suicidal Ideation: No (Denies) Suicidal Plan: No Suicidal Intention: No Homicidal Ideation: No Homicidal Plan: No Homicidal Intention: No Insight: Poor Judgment: Poor Results Vitals/IOs Vital Signs Date Time Temp Pulse Resp B/P (MAP) Pulse Ox O2 Delivery O2 Flow Rate FiO2 01/08/18 06:28 96.7 71 18 99/62 (74) 98 Assessment & Plan Problem List: (1) Unspecified psychosis ICD Codes: F29 - Unspecified psychosis not due to a substance or known physiological condition (2) Polysubstance abuse ICD Codes: F19.10 - Other psychoactive substance abuse, uncomplicated Assessment & Plan Patient this time continues to report some depressed mood but also continued auditory hallucinations but states they are lessening continues to be noted to be responding to stimuli upon observation on the unit. We will increase quetiapine to 50 mg p.m./400 mg at bedtime for psychosis and mood stabilization. Continue to encourage patient to comply with lab blood draw as well as to participate in groups and activities and improve p.o. nutritional intake. Treatment he will continue to attempt to reach patient's father. Continue monitor mood and behavior. Discharge planning in progress. Justification for Cont. Inpt. At risk for further decompensation if at lower level of care Trent Mireles MD Jan 08, 2018 12:45
[2018-01-08] MEDS: QUEtiapine FUMARATE 100 MG TAB PO SCH (16:00)
[2018-01-08 17:25] VITALS: BP 113/58; PULSE 70; RESP 18; TEMP 97.8; O2SAT 99
[2018-01-08] MEDS: QUEtiapine FUMARATE 200 MG TAB PO SCH (20:37)
[2018-01-08] MEDS: REMOVE OLD NICODERM (NICOTINE) PATCH T-DERMAL SCH (21:00)
[2018-01-09 05:48] VITALS: BP 97/56; PULSE 69; RESP 18; TEMP 97.4; O2SAT 100
[2018-01-09] MEDS: amLODIPine BESYLATE 5 MG TAB PO SCH (08:44)
[2018-01-09 09:18] LABS: AUTOMATED NEUTROPHIL # 2.4 TH/MM3 (1.8-7.7); BASOPHIL # 0.1 TH/MM3 (0-0.2); BASOPHIL % 1.1 % (0.0-2.0); EOSINOPHIL # 0.2 TH/MM3 (0-0.4); EOSINOPHIL % 3.9 % (0.0-4.0); HEMATOCRIT 44.7 % (35.0-46.0); HEMOGLOBIN 15.2 GM/DL (11.6-15.3); LYMPH % 44.5 % (9.0-44.0); LYMPHOCYTE # 2.5 TH/MM3 (1.0-4.8); MEAN CELL VOLUME 92.8 FL (80.0-100.0); MEAN CORPUSCULAR HEMOGLOBIN 31.6 PG (27.0-34.0); MEAN CORPUSCULAR HGB CONC 34.1 % (32.0-36.0); MEAN PLATELET VOLUME 7.9 FL (7.0-11.0); MONO % 7.9 % (0.0-8.0); MONOCYTE # 0.4 TH/MM3 (0-0.9); NEUT % 42.6 % (16.0-70.0); PLATELET COUNT 270 TH/MM3 (150-450); RED BLOOD COUNT 4.81 MIL/MM3 (4.00-5.30); RED CELL DISTRIBUTION WIDTH 12.6 % (11.6-17.2); WHITE BLOOD COUNT 5.6 TH/MM3 (4.0-11.0)
[2018-01-09 09:52] LABS: ALBUMIN 3.8 GM/DL (3.4-5.0); AST (GOT) 38 U/L (15-37); BICARBONATE 23.3 MEQ/L (21.0-32.0); BLOOD UREA NITROGEN 18 MG/DL (7-18); CALCIUM 8.6 MG/DL (8.5-10.1); CHLORIDE 108 MEQ/L (98-107); CREATININE 0.81 MG/DL (0.50-1.00); GLOMERULAR FILTRATION RATE 79 ML/MIN (>89); GLUCOSE,RANDOM 103 MG/DL (74-106); SODIUM (NA) 140 MEQ/L (136-145)
[2018-01-09 09:53] LABS: CHOLESTEROL 144 MG/DL (120-200); TRIGLYCERIDES 329 MG/DL (42-150)
[2018-01-09 09:57] LABS: ALKALINE PHOSPHATASE 55 U/L (45-117); ALT (GPT) 85 U/L (10-53); CHOLESTEROL/ HDL RATIO 3.12 RATIO; HDL CHOLESTEROL 46.1 MG/DL (40.0-60.0); LDL CHOLESTEROL 32 MG/DL (0-99); TOTAL BILIRUBIN ADULT 0.3 MG/DL (0.2-1.0); TOTAL PROTEIN 7.6 GM/DL (6.4-8.2)
--- NOTE | 2018-01-09 10:31 | PD.TTN ---
Patient Problems 1. Discharge planning 2. Medication compliance 3. Knowledge deficit 4. Lack of coping skills Progress Toward Goals Provider Present: Dr. Gregoria Mireles Provider Input: Patient is meeting criteria. Patient continues to have auditory hallucinations. Nurse(s) Input: Patient's nurse reports patient denies suicidal and homicidal ideation. Patient isolates. Patient is eating and sleeping ok. Psychiatric Counselors Present: [facility] Input: Patient denies suicidal and homicidal ideation. Patient does present with auditory hallunciations. Patient reports eating and sleeping ok. Patient can become easily agitated. Patient reports being medication compliant Group Spec/RT/OT/ARORA Present: ARACELI Hare Group Spec/RT/OT/ARORA Input: Patient isolates to herself. Patient declines to participate in the group activities Lavonne Rai [facility] [place] Jan 09, 2018 10:31
--- NOTE | 2018-01-09 11:47 | HHI.PYPN ---
Subjective Remarks Patient seen for follow, chart reviewed. Discussion nursing staff reported the patient continues to be noted to be bizarre, talking to self at times and make occasional nonsensical statements. Patient was found lying hospital bed noted to be somewhat guarded but able to engage in interview today. Patient states that she is feeling "okay" continues to report auditory hallucinations but states they are getting better, patient was encouraged to participate in groups and activities which she reluctantly agreed. Patient also mentions continue to try to contact her father with no success up to now. Patient was reiterated importance of complying with lab draw which she agreed. Review of Systems Except as stated in HPI: all other systems reviewed are Neg Mental Status Examination Appearance: Disheveled Consciousness: Somnolent (Somewhat) Orientation: Person Motor Activity: Normal gait Speech: Slow Language: Adequate Fund of Knowledge: Inadequate Attention and Concentration: Inadequate Memory: Impaired (Surrounding events prior to her admission) Mood: Other ("A little better") Affect: Flat Thought Process & Associations: Disorganized, Other (Poverty of thought) Thought Content: Hallucinations, Thought blocking (less today) Hallucination Type: Auditory Delusion Type: Paranoid Suicidal Ideation: No (Denies) Suicidal Plan: No Suicidal Intention: No Homicidal Ideation: No Homicidal Plan: No Homicidal Intention: No Insight: Poor Judgment: Poor Results Labs labs reviewed Test 01/09/18 09:00 White Blood Count 5.6 TH/MM3 Red Blood Count 4.81 MIL/MM3 Hemoglobin 15.2 GM/DL Hematocrit 44.7 % Mean Corpuscular Volume 92.8 FL Mean Corpuscular Hemoglobin 31.6 PG Mean Corpuscular Hemoglobin Concent 34.1 % Red Cell Distribution Width 12.6 % Platelet Count 270 TH/MM3 Mean Platelet Volume 7.9 FL Neutrophils (%) (Auto) 42.6 % Lymphocytes (%) (Auto) 44.5 % Monocytes (%) (Auto) 7.9 % Eosinophils (%) (Auto) 3.9 % Basophils (%) (Auto) 1.1 % Neutrophils # (Auto) 2.4 TH/MM3 Lymphocytes # (Auto) 2.5 TH/MM3 Monocytes # (Auto) 0.4 TH/MM3 Eosinophils # (Auto) 0.2 TH/MM3 Basophils # (Auto) 0.1 TH/MM3 CBC Comment DIFF FINAL Differential Comment Blood Urea Nitrogen 18 MG/DL Creatinine 0.81 MG/DL Random Glucose 103 MG/DL Total Protein 7.6 GM/DL Albumin 3.8 GM/DL Calcium Level 8.6 MG/DL Alkaline Phosphatase 55 U/L Aspartate Amino Transf (AST/SGOT) 38 U/L Alanine Aminotransferase (ALT/SGPT) 85 U/L Total Bilirubin 0.3 MG/DL Sodium Level 140 MEQ/L Potassium Level 4.2 MEQ/L Chloride Level 108 MEQ/L Carbon Dioxide Level 23.3 MEQ/L Anion Gap 9 MEQ/L Estimat Glomerular Filtration Rate 79 ML/MIN Total Creatine Kinase 26 U/L Triglycerides Level 329 MG/DL Cholesterol Level 144 MG/DL LDL Cholesterol 32 MG/DL HDL Cholesterol 46.1 MG/DL Cholesterol/HDL Ratio 3.12 RATIO Vitals/IOs Vital Signs Date Time Temp Pulse Resp B/P (MAP) Pulse Ox O2 Delivery O2 Flow Rate FiO2 01/09/18 05:48 97.4 69 18 97/56 (70) 100 Assessment & Plan Problem List: (1) Unspecified psychosis ICD Codes: F29 - Unspecified psychosis not due to a substance or known physiological condition (2) Polysubstance abuse ICD Codes: F19.10 - Other psychoactive substance abuse, uncomplicated Assessment & Plan Patient at this time continues to endorse auditory hallucinations which are lessenig but still present that staff also noticed patient responding to internal stimuli at times. Patient recently had quetiapine increased, we will continue with current treatment regimen. Labs noted with LFTs trending down. We will continue to monitor mood and behavior. Continue to encourage patient to participate in groups and activities, encourage patient to maintain personal hygiene, discharge planning in progress. Justification for Cont. Inpt. At risk for further decompensation if at lower level of care Trent Mireles MD Jan 09, 2018 11:47
[2018-01-09] MEDS: QUEtiapine FUMARATE 100 MG TAB PO SCH (16:00)
[2018-01-09 16:40] VITALS: BP 98/53; PULSE 69; RESP 16; TEMP 98.2; O2SAT 98
[2018-01-09 16:52] LABS: HEMOGLOBIN A1C 4.8 % (4.3-6.0)
[2018-01-09] MEDS: QUEtiapine FUMARATE 200 MG TAB PO SCH (20:41)
[2018-01-09] MEDS: REMOVE OLD NICODERM (NICOTINE) PATCH T-DERMAL SCH (20:41)
[2018-01-09] MEDS: diphenhydrAMINE HCL 50 MG CAP PO PRN (22:07)
[2018-01-10 05:44] VITALS: BP 101/56; PULSE 75; RESP 16; TEMP 97.8
[2018-01-10] MEDS: amLODIPine BESYLATE 5 MG TAB PO SCH (08:26)
[2018-01-10 08:59] VITALS: BP 112/62
--- NOTE | 2018-01-10 14:38 | HHI.PYPN ---
Subjective Remarks Patient seen for follow, chart reviewed. Discussion nursing staff reported the patient noted to be less isolative, now seen more in a day room, and out for meals. Discussion with counselor/therapist reported the patient was noted to have difficulty making phone calls and appearing confused at times. Patient was found in day room noted to be calm, cooperative. Patient also noted to be more engaging in interview with improved attention and concentration. Patient states that she is feeling "depressed" and states that being unemployed and unstable housing situation has contributed to this. Patient states she is sleeping better, continues report feeling "a little confused" and that her appetite is becoming improved. Patient continues to have auditory hallucinations which tell her negative comments but seemed to be subsiding. Patient with less delay in response during questions. Review of Systems Except as stated in HPI: all other systems reviewed are Neg Mental Status Examination Appearance: Disheveled Consciousness: Somnolent (Somewhat) Orientation: Person Motor Activity: Normal gait Speech: Slow Language: Adequate Fund of Knowledge: Inadequate Attention and Concentration: Inadequate Memory: Impaired (Surrounding events prior to her admission) Mood: Sad Affect: Flat Thought Process & Associations: Disorganized, Other (Poverty of thought) Thought Content: Hallucinations, Thought blocking (less today) Hallucination Type: Auditory Delusion Type: Paranoid (Lessening) Suicidal Ideation: No (Denies) Suicidal Plan: No Suicidal Intention: No Homicidal Ideation: No Homicidal Plan: No Homicidal Intention: No Insight: Poor Judgment: Poor Results Vitals/IOs Vital Signs Date Time Temp Pulse Resp B/P (MAP) Pulse Ox O2 Delivery O2 Flow Rate FiO2 01/10/18 08:59 112/62 (79) 01/10/18 05:44 97.8 75 16 01/09/18 16:40 98 Assessment & Plan Problem List: (1) Unspecified psychosis ICD Codes: F29 - Unspecified psychosis not due to a substance or known physiological condition (2) Polysubstance abuse ICD Codes: F19.10 - Other psychoactive substance abuse, uncomplicated Assessment & Plan Patient this time noted to have more improvement in engaging in interview, less thought blocking, able to elaborate more on her symptoms. Patient with depressed mood at this time will start sertraline 25 mg 1, 50 mg p.o. daily thereafter if tolerated well. Will continue rest of medication regimen. We will continue to monitor mood and behavior. Continue to encourage patient to maintain personal hygiene and participate in groups and activities. Treatment team continue to try to contact patient's father for discharge planning. Discharge planning in progress. Justification for Cont. Inpt. At risk of further decompensation at lower level of care. Trent Mireles MD Jan 10, 2018 14:38
[2018-01-10] MEDS ORDERED: SERTRALINE HCL 50 MG TAB PO ONE (14:45)
[2018-01-10] MEDS: QUEtiapine FUMARATE 100 MG TAB PO SCH (15:08)
[2018-01-10 16:30] VITALS: BP 112/66; PULSE 72; RESP 18; O2SAT 98
[2018-01-10] MEDS: REMOVE OLD NICODERM (NICOTINE) PATCH T-DERMAL SCH (21:00)
[2018-01-10] MEDS: QUEtiapine FUMARATE 200 MG TAB PO SCH (21:09)
[2018-01-10] MEDS: diphenhydrAMINE HCL 50 MG CAP PO PRN (23:30)
[2018-01-11 06:08] VITALS: BP 98/53; PULSE 74; RESP 16; TEMP 97.8; O2SAT 98
[2018-01-11] MEDS: amLODIPine BESYLATE 5 MG TAB PO SCH (09:00)
[2018-01-11] MEDS: SERTRALINE HCL 50 MG TAB PO SCH (09:00)
--- NOTE | 2018-01-11 15:25 | HHI.PYPN ---
Subjective Remarks Patient is here for follow, chart reviewed. Discussion wishes to reported the patient continues to be guarded, paranoid, noted to become laughing at self at times he continues to have episodes of confusion but noticed with some improvement. Patient was found him lying on the unit noted B, cooperative. Patient states that she is feeling "good" reports having attended spirituality group yesterday which she enjoyed. Patient states he is sleeping better, reports that she has having lessening depressed mood today, auditory hallucinations "almost gone" and noted to have less confusion although continues to have episodes of confusion. Review of Systems Except as stated in HPI: all other systems reviewed are Neg Mental Status Examination Appearance: Appropriate Consciousness: Alert Orientation: Person, Place Motor Activity: Normal gait Speech: Slow (Improving) Language: Adequate Fund of Knowledge: Inadequate Attention and Concentration: Inadequate (Improving) Memory: Impaired (Surrounding events prior to her admission) Mood: Other ("Okay") Affect: Flat Thought Process & Associations: Disorganized (Less so today), Other (Poverty of thought) Thought Content: Hallucinations (Decreasing), Thought blocking (less today) Hallucination Type: Auditory Delusion Type: Paranoid (Lessening) Suicidal Ideation: No (Denies) Suicidal Plan: No Suicidal Intention: No Homicidal Ideation: No Homicidal Plan: No Homicidal Intention: No Insight: Poor Judgment: Poor Results Vitals/IOs Vital Signs Date Time Temp Pulse Resp B/P (MAP) Pulse Ox O2 Delivery O2 Flow Rate FiO2 01/11/18 06:08 97.8 74 16 98/53 (68) 98 Assessment & Plan Problem List: (1) Unspecified psychosis ICD Codes: F29 - Unspecified psychosis not due to a substance or known physiological condition (2) Polysubstance abuse ICD Codes: F19.10 - Other psychoactive substance abuse, uncomplicated Assessment & Plan Patient this time noted to have less thought blocking, less poverty of thought, noted to be less confused and more engaging later today. Patient appears to be improving slowly, decreasing and auditory hallucinations. We will continue current treatment. Continue monitor mood and behavior. Discharge planning in progress. Justification for Cont. Inpt. At risk for further decompensation if at lower level of care Trent Mireles MD Jan 11, 2018 15:25
[2018-01-11] MEDS: QUEtiapine FUMARATE 100 MG TAB PO SCH (16:49)
[2018-01-11 17:08] VITALS: BP 118/71; PULSE 75; RESP 17; TEMP 97.9; O2SAT 99
[2018-01-11] MEDS: QUEtiapine FUMARATE 200 MG TAB PO SCH (20:42)
[2018-01-11] MEDS: REMOVE OLD NICODERM (NICOTINE) PATCH T-DERMAL SCH (21:00)
[2018-01-11] MEDS: diphenhydrAMINE HCL 50 MG CAP PO PRN (22:24)
[2018-01-12 08:43] VITALS: BP 107/62; PULSE 81
[2018-01-12] MEDS: SERTRALINE HCL 50 MG TAB PO SCH (09:13)
[2018-01-12] MEDS: amLODIPine BESYLATE 5 MG TAB PO SCH (09:14)
[2018-01-12] MEDS: hydrOXYzine HCL 50 MG TAB PO PRN (13:30)
--- NOTE | 2018-01-12 14:58 | HHI.PYPN ---
Subjective Remarks Patient was seen and case discussed with nursing. Patient says her auditory hallucinations have resolved. Per nursing however she did not notice a lot of time in her room. Patient denies suicidal or homicidal ideation intent or plan. Behaving well on the unit. Compliant with her medications. Asking about discharge Mental Status Examination Appearance: Appropriate Consciousness: Alert Orientation: Person, Place Motor Activity: Normal gait Speech: Slow (Improving) Language: Adequate Fund of Knowledge: Inadequate Attention and Concentration: Inadequate (Improving) Memory: Impaired (Surrounding events prior to her admission) Mood: Other ("Okay") Affect: Appropriate Thought Process & Associations: Disorganized (Less so today), Other (Poverty of thought) Thought Content: Hallucinations (Decreasing), Thought blocking (less today) Hallucination Type: Auditory (Denies today) Delusion Type: Paranoid (Lessening) Suicidal Ideation: No (Denies) Suicidal Plan: No Suicidal Intention: No Homicidal Ideation: No Homicidal Plan: No Homicidal Intention: No Insight: Poor Judgment: Poor Results Vitals/IOs Vital Signs Date Time Temp Pulse Resp B/P (MAP) Pulse Ox O2 Delivery O2 Flow Rate FiO2 01/12/18 08:43 81 107/62 (77) 01/11/18 17:08 97.9 17 99 Assessment & Plan Problem List: (1) Unspecified psychosis ICD Codes: F29 - Unspecified psychosis not due to a substance or known physiological condition (2) Polysubstance abuse ICD Codes: F19.10 - Other psychoactive substance abuse, uncomplicated Assessment & Plan Continue current treatment plan Justification for Cont. Inpt. Patient would decompensate in a less restrictive setting Pranav Campbell DO Jan 12, 2018 14:58
[2018-01-12] MEDS: QUEtiapine FUMARATE 100 MG TAB PO SCH (16:34)
[2018-01-12 17:14] VITALS: BP 111/74; PULSE 67; RESP 18; TEMP 98.2; O2SAT 98
[2018-01-12] MEDS: QUEtiapine FUMARATE 200 MG TAB PO SCH (20:25)
[2018-01-12] MEDS: REMOVE OLD NICODERM (NICOTINE) PATCH T-DERMAL SCH (20:39)
[2018-01-12] MEDS: diphenhydrAMINE HCL 50 MG CAP PO PRN (22:13)
[2018-01-13 06:00] VITALS: BP 97/57; PULSE 76; RESP 17; TEMP 99; O2SAT 99
[2018-01-13] MEDS: SERTRALINE HCL 50 MG TAB PO SCH (09:00)
[2018-01-13] MEDS: amLODIPine BESYLATE 5 MG TAB PO SCH (09:00)
--- NOTE | 2018-01-13 13:18 | HHI.PYPN ---
Subjective Remarks Patient was seen and case discussed with nursing. Patient is pleasant and cooperative with exam. She continues to improve. No paranoia was noted today. She showered, ate lunch, sleeping well. Hoping to be discharged to her uncle' s house. Tolerating medications well. Denies suicidal or homicidal ideation intent or plan Mental Status Examination Appearance: Appropriate Consciousness: Alert Orientation: Person, Place Motor Activity: Normal gait Speech: Unremarkable Language: Adequate Fund of Knowledge: Adequate Attention and Concentration: Adequate Memory: Impaired (Surrounding events prior to her admission) Mood: Other ("Okay") Affect: Appropriate Thought Process & Associations: Disorganized (Less so today), Other (Poverty of thought) Thought Content: Hallucinations (Decreasing), Thought blocking (less today) Hallucination Type: Auditory (Denies today) Delusion Type: Paranoid (Lessening) Suicidal Ideation: No (Denies) Suicidal Plan: No Suicidal Intention: No Homicidal Ideation: No Homicidal Plan: No Homicidal Intention: No Insight: Poor Judgment: Poor Results Vitals/IOs Vital Signs Date Time Temp Pulse Resp B/P (MAP) Pulse Ox O2 Delivery O2 Flow Rate FiO2 01/12/18 17:14 98.2 67 18 111/74 (86) 98 Assessment & Plan Problem List: (1) Unspecified psychosis ICD Codes: F29 - Unspecified psychosis not due to a substance or known physiological condition (2) Polysubstance abuse ICD Codes: F19.10 - Other psychoactive substance abuse, uncomplicated Assessment & Plan Continue current treatment plan Justification for Cont. Inpt. Patient would decompensate in a less restrictive setting Pranav Campbell DO Jan 13, 2018 13:18
[2018-01-13 16:06] VITALS: BP 122/77; PULSE 77; RESP 17; TEMP 98; O2SAT 98
[2018-01-13] MEDS: QUEtiapine FUMARATE 100 MG TAB PO SCH (16:30)
[2018-01-13] MEDS: QUEtiapine FUMARATE 200 MG TAB PO SCH (20:55)
[2018-01-13] MEDS: diphenhydrAMINE HCL 50 MG CAP PO PRN (20:56)
[2018-01-13] MEDS: REMOVE OLD NICODERM (NICOTINE) PATCH T-DERMAL SCH (21:00)
[2018-01-14 06:26] VITALS: BP 107/72; PULSE 73; RESP 16; TEMP 97.3; O2SAT 98
[2018-01-14] MEDS: amLODIPine BESYLATE 5 MG TAB PO SCH (08:24)
[2018-01-14] MEDS: SERTRALINE HCL 50 MG TAB PO SCH (08:24)
[2018-01-14] MEDS ORDERED: QUET1TAB8 PO (10:33)
[2018-01-14] MEDS ORDERED: QUET400T PO (10:33)
[2018-01-14] MEDS ORDERED: ZOLO50TA PO (10:33)
[2018-01-14] MEDS ORDERED: AMLO5TAB2 PO (10:33)
[2018-01-14] MEDS: QUEtiapine FUMARATE 100 MG TAB PO SCH (16:00)
--- NOTE | 2018-01-14 18:26 | HHI.PYPN ---
Subjective Remarks Patient seen for follow, chart reviewed. Discussion nursing staff reported the patient continues to be noted to be somewhat paranoid asking if red light on the TV as a camera and being watched as well as being very paranoid about her medications. Patient was found to ambulate on the unit noted to be on the phone with her boyfriend and was noted to be yelling during her conversation. Patient was seen for interview after her phone call noted to be somewhat upset about her conversation with her boyfriend. Patient states she continued to feel very paranoid and states that she feels as if there are cameras watching her as well as being untrusting of the staff and states that she feels that the phones are tapped. Discussion of patient going to sober living was reviewed which patient states that she will not go with any staff member to be transported her to this facility as she states she did not trust the people down be transporting her. She reports lessening of AH and continues with paranoid delusions. Review of Systems Except as stated in HPI: all other systems reviewed are Neg Mental Status Examination Appearance: Appropriate Consciousness: Alert Orientation: Person, Place Motor Activity: Normal gait Speech: Unremarkable Language: Adequate Fund of Knowledge: Adequate Attention and Concentration: Adequate Memory: Impaired (Surrounding events prior to her admission) Mood: Irritable Affect: Irritable Thought Process & Associations: Disorganized (Less so today) Thought Content: Hallucinations (Decreasing), Thought blocking (less today), Delusional Hallucination Type: Auditory (Denies today) Delusion Type: Paranoid (Lessening) Suicidal Ideation: No (Denies) Suicidal Plan: No Suicidal Intention: No Homicidal Ideation: No Homicidal Plan: No Homicidal Intention: No Insight: Poor Judgment: Poor Results Vitals/IOs Vital Signs Date Time Temp Pulse Resp B/P (MAP) Pulse Ox O2 Delivery O2 Flow Rate FiO2 01/14/18 06:26 97.3 73 16 107/72 (84) 98 Assessment & Plan Problem List: (1) Unspecified psychosis ICD Codes: F29 - Unspecified psychosis not due to a substance or known physiological condition (2) Polysubstance abuse ICD Codes: F19.10 - Other psychoactive substance abuse, uncomplicated Assessment & Plan Patient this time continue be noted to have significant paranoid of staff, continue with some disorganization but has improved since admission. Patient reports lessening auditory hallucinations. We will increase quetiapine to 100 mg/400 mg p.o. for psychosis. Continue rest of medications. Continue monitor mood and behavior. Discharge planning in progress. Justification for Cont. Inpt. At risk for further decompensation if at lower level of care Discharge Planning To be determined Trent Mireles MD Jan 14, 2018 18:26
[2018-01-14] MEDS: REMOVE OLD NICODERM (NICOTINE) PATCH T-DERMAL SCH (21:00)
[2018-01-14] MEDS: QUEtiapine FUMARATE 200 MG TAB PO SCH (21:05)
[2018-01-14] MEDS: diphenhydrAMINE HCL 50 MG CAP PO PRN (21:05)
[2018-01-15 06:13] VITALS: BP 102/58; PULSE 70; RESP 18; TEMP 97.9; O2SAT 98
[2018-01-15] MEDS: amLODIPine BESYLATE 5 MG TAB PO SCH (09:20)
[2018-01-15] MEDS: SERTRALINE HCL 50 MG TAB PO SCH (09:20)
[2018-01-15] MEDS ORDERED: QUET1TAB8 PO (16:06)
--- NOTE | 2018-01-15 16:07 | HHI.DS ---
Psychiatry Discharge Summary Inpatient Psychiatric care?: Yes Advance Directive: No Reason Not Provided: does not have one Mental Health AdvanceDirective: No (refused to answer-) Health Care Proxy: No Admission Admission Date Jan 02, 2018 at 14:16 Admission Diagnosis: (1) Unspecified psychosis ICD Code: F29 - Unspecified psychosis not due to a substance or known physiological condition (2) Polysubstance abuse ICD Code: F19.10 - Other psychoactive substance abuse, uncomplicated Brief History Patient is a 37-year-old woman, , unemployed, domicile was friend with a past psychiatric history as bipolar disorder, schizophrenia as per patient, polysubstance use disorder (cocaine, amphetamines, alcohol), with 3 previous psychiatric admissions, one previous suicide attempt (recently in September of this year), was brought in under [employer] travel act due to suicidal ideations and plan to jump from a bridge or shoot herself in the head in the context of medication noncompliance and having been kicked out of her living situation. Patient was found lying hospital bed noted B confused, paranoid and poor historian at this time. Patient states that she is not sure how she came to the hospital in the last thing she remembered was trying to get her prescriptions of medications which she does not recall at this time. Patient reports having last been seen at [facility] but was unable to provide details. Patient reports having difficulty with sleep and energy and recently, along with feeling paranoid and having auditory hallucinations. Patient states that she has also hallucinations when she does not take her medications. Patient also endorses suicide ideations at this time along with feeling depressed, denies any recent substance use. Patient noted to be paranoid with filing writer taking notes during interview. Urine toxicology was positive for amphetamines and benzodiazepines. The patient is a 37-year-old woman, , domiciled with a friend , unemployed at the moment, with psychiatric history of bipolar disorder, schizophrenia, polysubstance dependence, 2 previous psychiatric hospitalizations , suicide attempts, medical history hypertension, who was hospitalized on the [place] act due to suicidal ideation with a plan of jumping off a bridge in the context of noncompliant with her medications. She was consulted to me for second opinion. On psychiatric evaluation the patient is calm, cooperative, a little bit disorganized. She reports that she feels much better today, she says that she has been hearing voices, but now she is fine. She denies suicidal enemas ideation, she denies visual and auditory hallucinations. Tobacco Use In Past 30 Days: No Tobacco Past 30 Days Alcohol Use: 2-4 Times Per Month Hospital Course Patient is a 37-year-old woman, , unemployed, domicile was friend with a past psychiatric history as bipolar disorder, schizophrenia as per patient, polysubstance use disorder (cocaine, amphetamines, alcohol), with 3 previous psychiatric admissions, one previous suicide attempt (recently in September of this year), was brought in under [place] act due to suicidal ideations and plan to jump from a bridge or shoot herself in the head in the context of medication noncompliance and having been kicked out of her living situation. Patient was started on quetiapine and titrated to 100mg/400mg HS, sertraline 50mg PO daily which she tolerated well. Due to active psychotic symptoms as well as paranoia and disorganization, was kept on acute unit due to prominent paranoia as well but did not require any ETOs during admission. Patient was noted to be withdrawn, poor nutritional intake, and isolative initially but with continued treatment was noted to have progressive improvement of mood, cessation of auditory hallucinations, and compliant with treatment. Patient was cooperative with staff, had no behavioral dyscontrol, and participated in select groups and activities. Upon discharge patient stated that she was feeling good, denied any psychotic symptoms, denied any SI or HI but had minimal paranoia. Patient agreed to continue medication regimen and outpatient follow up for continuity of care. Patient was provided with counseling on abstinence from substance use and recommendation to have patient engage in sober living but refused and was requesting discharge to her boyfriends home. I have counseled the patient regarding warning signs for need to return to the psychiatric emergency room as part of a general safety plan. Patient advised to call 911 or go nearest ED in case of emergency. Patient agrees with plan. Results Blood Pressure 102 / 58 Vital Signs Date Time Temp Pulse Resp B/P (MAP) Pulse Ox O2 Delivery O2 Flow Rate FiO2 01/15/18 06:13 97.9 70 18 102/58 (73) 98 Laboratory Results Test 01/09/18 09:00 Cholesterol Level 144 MG/DL (120-200) HDL Cholesterol 46.1 MG/DL (40.0-60.0) Hemoglobin A1c 4.8 % (4.3-6.0) LDL Cholesterol 32 MG/DL (0-99) Triglycerides Level 329 MG/DL (42-150) Summary of Procedures none Pending results at discharge: No Medications # of Antipsychotic meds at D/C: 1 Approp Antipsych med options 1 - Minimum of three failed multiple trials of monotherapy. 2 - Documented plan to taper to monotherapy due to previous use of multiple meds OR cross-taper in progress at D/C. 3 - Documentation of augmentation of Clozapine. 4 - Justification other than those listed in allowable values 1-3, document here : Discharge Discharge Date: Jan 15, 2018 Discharge Diagnosis: (1) Unspecified psychosis ICD Code: F29 - Unspecified psychosis not due to a substance or known physiological condition (2) Polysubstance abuse ICD Code: F19.10 - Other psychoactive substance abuse, uncomplicated Pt Condition on Discharge: Stable Discharge Disposition: Discharge Home Discharge Instructions Diet Instructions: As Tolerated, No Restrictions Activities you can perform: Regular-No Restrictions Scheduled Appointment: Chema Blanco Appointment Date: Jan 16, 2018 Appointment Time: 730am Discharge Time > 30 minutes Mental Status Examination Appearance: Appropriate Consciousness: Alert Orientation: Person, Place Motor Activity: Normal gait Speech: Unremarkable Language: Adequate Fund of Knowledge: Adequate Attention and Concentration: Adequate Memory: Impaired (Surrounding events prior to her admission) Mood: Appropriate Affect: Appropriate Thought Process & Associations: Intact Thought Content: Appropriate Hallucination Type: None Delusion Type: Paranoid (slight) Suicidal Ideation: No Suicidal Plan: No Suicidal Intention: No Homicidal Ideation: No Homicidal Plan: No Homicidal Intention: No Insight: Fair Judgment: Impulsive Discharge/Advance Care Plan Health Problems: (1) Unspecified psychosis (2) Polysubstance abuse Goals to promote your health * To prevent worsening of your condition and complications * To maintain your health at the optimal level Directions to meet your goals Take your medications as prescribed Follow your dietary instruction Follow activity as directed Keep your appointments as scheduled Take your immunizations and boosters as scheduled If your symptoms worsen call your PCP, if no PCP go to Urgent Care Center or Emergency Room For 16/04 questions related to your inpatient stay or results of tests pending at discharge, please contact Dr. Trent Mireles at Smoking is Dangerous to Your Health. Avoid second hand smoking Trent Mireles MD Jan 15, 2018 16:07
[2018-01-15] MEDS: QUEtiapine FUMARATE 100 MG TAB PO SCH (16:43)
== END 2018-01-15 17:44 | disposition home or self-care (01) | DRG 885 ==
LOC: NEPD 14:45 → NEDA 01-02 14:16 → H270 01-02 16:40
PROVIDERS: ADMIT Student in an Organized Health Care Education/Training Program; ATTEND Student in an Organized Health Care Education/Training Program
DX: F29 Unspecified psychosis not due to a substance or known physiological condition (principal); R45.851 Suicidal ideations; F20.9 Schizophrenia, unspecified; Z91.14 Patient's other noncompliance with medication regimen; F19.10 Other psychoactive substance abuse, uncomplicated; Z91.5 Personal history of self-harm; Z91.410 Personal history of adult physical and sexual abuse; Z81.8 Family history of other mental and behavioral disorders; I10 Essential (primary) hypertension; F31.9 Bipolar disorder, unspecified
CPT/HCPCS: 80053; 80061; 80307; 81001; 82550; 83036; 84443; 84703; 85025; 93005; Q0163

== ENCOUNTER 2018-01-17 07:57 | Emergency (ER) | payer SELFPAY ==
[~2018-01-17 07:57] MED LIST changes: +AMLO5TAB2 PO; -CIPR-9 PO; -QUET1TAB10 PO; +QUET1TAB8 PO; +QUET400T PO; +ZOLO50TA PO
[2018-01-17 08:08] VITALS: BP 134/92; PULSE 110; RESP 20; TEMP 96.4; O2SAT 100
[2018-01-17 11:48] LABS: BASOPHIL # 0.1 TH/MM3 (0-0.2); BASOPHIL % 0.6 % (0.0-2.0); EOSINOPHIL # 0.1 TH/MM3 (0-0.4); EOSINOPHIL % 1.2 % (0.0-4.0); HEMATOCRIT 44.3 % (35.0-46.0); HEMOGLOBIN 15.2 GM/DL (11.6-15.3); LYMPH % 26.3 % (9.0-44.0); LYMPHOCYTE # 2.4 TH/MM3 (1.0-4.8); MEAN CELL VOLUME 91.8 FL (80.0-100.0); MEAN CORPUSCULAR HEMOGLOBIN 31.4 PG (27.0-34.0); MEAN CORPUSCULAR HGB CONC 34.2 % (32.0-36.0); MEAN PLATELET VOLUME 7.7 FL (7.0-11.0); MONO % 5.2 % (0.0-8.0); MONOCYTE # 0.5 TH/MM3 (0-0.9); NEUT % 66.7 % (16.0-70.0); PLATELET COUNT 224 TH/MM3 (150-450); RED BLOOD COUNT 4.83 MIL/MM3 (4.00-5.30); RED CELL DISTRIBUTION WIDTH 12.4 % (11.6-17.2)
[2018-01-17 12:03] LABS: ALT (GPT) 77 U/L (10-53); AST (GOT) 32 U/L (15-37); BLOOD UREA NITROGEN 14 MG/DL (7-18); CALCIUM 9.3 MG/DL (8.5-10.1); CHLORIDE 108 MEQ/L (98-107); CREATININE 0.69 MG/DL (0.50-1.00); GLOMERULAR FILTRATION RATE 95 ML/MIN (>89); GLUCOSE,RANDOM 84 MG/DL (74-106); SODIUM (NA) 142 MEQ/L (136-145)
[2018-01-17 12:05] LABS: ACETAMINOPHEN LESS THAN 2.0 MCG/ML (10.0-30.0); ALKALINE PHOSPHATASE 53 U/L (45-117); TOTAL BILIRUBIN ADULT 0.5 MG/DL (0.2-1.0); TOTAL PROTEIN 7.5 GM/DL (6.4-8.2)
[2018-01-17 13:05] VITALS: BP 130/82; PULSE 74; RESP 18; O2SAT 100
--- NOTE | 2018-01-17 13:08 | PD ---
HPI . Suicidal ideation Chief Complaint: Psychiatric Symptoms Time Seen by Provider: 11:45 Travel History International Travel<30 days: No Contact w/Intl Traveler<30days: No Traveled to known affect area: No History of Present Illness HPI This patient presents to us voluntarily through the front door with the chief complaint of suicidal ideation. She reports the onset of her symptoms this morning. She states that she does have a plan and that her plan would be to either jump off a bridge, jumping front of a car or shoot herself. She reports a previous suicide attempt by wayne on Xanax. She also reports that she was just in the hospital for psychiatric reasons. She states that she was discharged on Seroquel and that she has been compliant with her medications since discharge. Onset of symptoms was today. Timing is continuous. Severity is moderate and that she has a history of psychiatric disorder and has a plan. Furthermore, she has had a previous suicide attempt. However, she did present us voluntarily for assistance. Modifying factors are none known Context is known psychiatric disorder as well as polysubstance abuse. PFSH Past Medical History Hx Anticoagulant Therapy: No Anxiety: Yes Depression: Yes Cancer: Yes (Basal cell carcinoma per history left ear and chest) Cardiovascular Problems: Yes (history of HTN. ) Chemotherapy: No Cerebrovascular Accident: No Diabetes: No Diminished Hearing: No (UTO) Endocrine: No Genitourinary: No Hypertension: Yes Immune Disorder: No Musculoskeletal: Yes Neurologic: Yes (History of seizures ) Psychiatric: Yes Reproductive: No Respiratory: No Radiation Therapy: No Seizures: Yes ?: Not LMP: "5 days ago" Past Surgical History Hysterectomy: No Other Surgery: No Social History Alcohol Use: Yes (occ) Tobacco Use: Yes Substance Use: Yes (denies) Allergies-Medications (Allergen,Severity, Reaction): Coded Allergies: No Known Allergies (Verified Allergy, Unknown, 12/01/17) Reported Meds & Prescriptions Reported Meds & Active Scripts Active Quetiapine (Quetiapine Fumarate) 100 Mg Tab 100 Mg PO DAILY@1600 30 Days Quetiapine (Quetiapine Fumarate) 400 Mg Tab 400 Mg PO HS Zoloft (Sertraline HCl) 50 Mg Tab 50 Mg PO DAILY 30 Days Amlodipine (Amlodipine Besylate) 5 Mg Tab 5 Mg PO DAILY 30 Days Review of Systems Except as stated in HPI: all other systems reviewed are Neg Physical Exam Narrative GENERAL: Awake and alert and in no acute distress. Lying on the bed in no distress. SKIN: Warm and dry. HEAD: Normocephalic/atraumatic. EYES: Pupils are equal. Extraocular movements are intact. NECK: Normal range of motion. CARDIOVASCULAR: Regular rate and rhythm. RESPIRATORY: Nonlabored respirations. MUSCULOSKELETAL: Atraumatic. NEUROLOGICAL: Nonfocal. PSYCHIATRIC: Suicidal ideation with a plan. Data Data Last Documented VS Vital Signs Date Time Temp Pulse Resp B/P (MAP) Pulse Ox O2 Delivery O2 Flow Rate FiO2 01/17/18 08:08 96.4 110 20 134/92 (106) 100 Orders Orders Complete Blood Count With Diff (01/17/18 10:55) Comprehensive Metabolic Panel (01/17/18 10:55) Ed Urine Pregnancytest Poc (01/17/18 10:55) Psych Screen (01/17/18 10:55) Diet Regular Basic (01/17/18 Lunch) Drug Screen, Random Urine (01/17/18 10:55) Alcohol (Ethanol) (01/17/18 10:55) Tylenol (Acetaminophen) (01/17/18 10:55) Salicylates (Aspirin) (01/17/18 10:55) Drug Screen, Random Urine (01/17/18 12:59) Labs Laboratory Tests Test 01/17/18 11:24 01/17/18 11:26 White Blood Count 9.0 TH/MM3 Red Blood Count 4.83 MIL/MM3 Hemoglobin 15.2 GM/DL Hematocrit 44.3 % Mean Corpuscular Volume 91.8 FL Mean Corpuscular Hemoglobin 31.4 PG Mean Corpuscular Hemoglobin Concent 34.2 % Red Cell Distribution Width 12.4 % Platelet Count 224 TH/MM3 Mean Platelet Volume 7.7 FL Neutrophils (%) (Auto) 66.7 % Lymphocytes (%) (Auto) 26.3 % Monocytes (%) (Auto) 5.2 % Eosinophils (%) (Auto) 1.2 % Basophils (%) (Auto) 0.6 % Neutrophils # (Auto) 6.0 TH/MM3 Lymphocytes # (Auto) 2.4 TH/MM3 Monocytes # (Auto) 0.5 TH/MM3 Eosinophils # (Auto) 0.1 TH/MM3 Basophils # (Auto) 0.1 TH/MM3 CBC Comment DIFF FINAL Differential Comment Blood Urea Nitrogen 14 MG/DL Creatinine 0.69 MG/DL Random Glucose 84 MG/DL Total Protein 7.5 GM/DL Albumin 4.0 GM/DL Calcium Level 9.3 MG/DL Alkaline Phosphatase 53 U/L Aspartate Amino Transf (AST/SGOT) 32 U/L Alanine Aminotransferase (ALT/SGPT) 77 U/L Total Bilirubin 0.5 MG/DL Sodium Level 142 MEQ/L Potassium Level 3.9 MEQ/L Chloride Level 108 MEQ/L Carbon Dioxide Level 29.0 MEQ/L Anion Gap 5 MEQ/L Estimat Glomerular Filtration Rate 95 ML/MIN Salicylates Level 3.0 MG/DL Acetaminophen Level LESS THAN 2.0 MCG/ML Ethyl Alcohol Level LESS THAN 3 MG/DL Urine Opiates Screen NEG Urine Barbiturates Screen NEG Urine Amphetamines Screen NEG Urine Benzodiazepines Screen NEG Urine Cocaine Screen POS Urine Cannabinoids Screen POS MDM Medical Decision Making Medical Screen Exam Complete: Yes Emergency Medical Condition: Yes Differential Diagnosis Differential diagnosis includes but is not limited to depression with suicidal gesture, suicide attempt, suicidal ideation, attention seeking behavior. Narrative Course This patient presents to us voluntarily with the chief complaint of suicidal ideation. This patient was just admitted to the hospital from [facility] 11/26/2023. She had labs done during that hospitalization. And there were no concerning abnormalities. Therefore, labs will not be repeated with the exception of her urine drug screen. This patient is medically clear for psychiatric evaluation. Diagnosis Primary Impression: Medical clearance for psychiatric admission Condition: Stable Laura Belle MD Jan 17, 2018 13:08
[2018-01-17 14:42] VITALS: BP 128/78; PULSE 88; RESP 17; TEMP 98.1; O2SAT 97
[2018-01-17 18:32] VITALS: BP 118/68; PULSE 85; RESP 16; TEMP 97.3; O2SAT 97
[2018-01-17 21:14] VITALS: BP 95/52; PULSE 72; RESP 18
[2018-01-18 02:35] VITALS: BP 87/62; PULSE 65; RESP 16
[2018-01-18 05:38] VITALS: BP 95/67; PULSE 70; RESP 16
[2018-01-18 10:00] VITALS: BP 114/78; PULSE 74; RESP 16; TEMP 97.8; O2SAT 99
--- NOTE | 2018-01-18 11:33 | PD ---
History of Present Illness Chief Complaint: Psychiatric Symptoms Time Seen by Provider: 11:00 Travel History International Travel<30 Days: No Contact w/Intl Traveler<30days: No Known affected area: No Legal Status Legal Status: Involuntary [employer] Act Signed By: Gale Act Comment: GARRICK Arredondo History of Present Illness: History of Present Illness HPI This is a 37-year-old single, female, with history of unspecified psychosis, substance use disorder including cannabis, cocaine, benzodiazepine, amphetamine, alcohol who patient presents voluntarily through the front door with the chief complaint of suicidal ideation with plan to jump off a bridge, jumping in front of a car or shooting herself. Patient was discharged for our inpatient psychiatric unit on January 15 after she was admitted for unspecified psychosis context of substance use. It appears that after her discharge the patient return to stay with her boyfriend versus going to a sober living facility like it was suggested. Her compliance with medication after discharge is questionable and she is positive today for cocaine as well as cannabinoids. She denies having used cocaine. Patient is seen in [facility]. She is awake, alert, oriented, she is irritable with dysphoric mood. She states she feels suicidal, feels like people are after her and talking about her and that these people are everywhere. She becomes very angry when she is questioned about her use of substances. She appears paranoid regarding marketing underwriter and believes that I am somehow" trying to trick her." The patient is unable to contract for safety at this time. She does not answer any other questions and terminates at the evaluation. PFSH Past Medical History Hx Anticoagulant Therapy: No Anxiety: Yes Depression: Yes Cancer: Yes (Basal cell carcinoma per history left ear and chest) Cardiovascular Problems: Yes (history of HTN. ) Chemotherapy: No Cerebrovascular Accident: No Diabetes: No Diminished Hearing: No (UTO) Endocrine: No Genitourinary: No Hypertension: Yes Immune Disorder: No Musculoskeletal: Yes Neurologic: Yes (History of seizures ) Psychiatric: Yes Reproductive: No Respiratory: No Radiation Therapy: No Seizures: Yes ?: Not LMP: "5 days ago" Past Surgical History Hysterectomy: No Other Surgery: No Psychiatric History Psychiatric History Hx Psychiatric Treatment: 1 previous suicide attempt in September 2017. Several hospitalizations for unspecified psychosis, adjustment disorder, substance induced mood disorder as well as after a overdose. History of Inpatient Treatment: Yes Guns or firearms in home: No Social History Single, staying with her boyfriend, currently unemployed. Hx Alcohol Use: Yes (occ) Hx Tobacco Use: Yes Hx Substance Use: Yes Substance Use Type: Alcohol, Marijuana, Cocaine Other Substances Used: Pt. denies all other drug use. Hx of Substance Use Treatment: Yes Allergies-Medications (Allergen,Severity, Reaction): Coded Allergies: No Known Allergies (Verified Allergy, Unknown, 12/01/17) Reported Meds & Prescriptions Reported Meds & Active Scripts Active Quetiapine (Quetiapine Fumarate) 400 Mg Tab 400 Mg PO HS Zoloft (Sertraline HCl) 50 Mg Tab 50 Mg PO DAILY 30 Days Amlodipine (Amlodipine Besylate) 5 Mg Tab 5 Mg PO DAILY 30 Days Quetiapine (Quetiapine Fumarate) 100 Mg Tab 100 Mg PO DAILY@1600 30 Days Review of Systems ROS Limitations: Uncooperative Mental Status Examination Appearance: Appropriate Consciousness: Alert Orientation: x4 Motor Activity: Normal gait Speech: Unremarkable Language: Adequate Fund of Knowledge: Adequate Attention and Concentration: Adequate Memory: Unremarkable Mood: Angry, Irritable Affect: Appropriate Thought Process & Associations: Intact, Logical Thought Content: Delusional Hallucination Type: Auditory (People talking about her) Delusion Type: Paranoid Suicidal Ideation: Yes Suicidal Plan: Yes (Jump in front of a car, jump off a bridge, shoot herself) Suicidal Intention: Yes Homicidal Ideation: No Homicidal Plan: No Homicidal Intention: No Insight: Poor Judgment: Impulsive MDM Medical Decision Making Medical Record Reviewed: Yes Assessment/Plan 37-year-old female with history of unspecified psychosis, adjustment disorder, depressive disorder, substance-induced mood disorder, substance use disorder including cocaine, cannabis, alcohol, benzodiazepine, amphetamine, 1 previous suicide attempt in September 2017, recently discharged from inpatient psychiatric unit with questionable compliance with medication, who presents to the ED reporting suicidal ideation with intent to jump off a bridge, jump in front of a car, she would herself. Patient is dysphoric, poor frustration tolerance, and unable to contract for safety. At this time the patient will be placed under an involuntary in order to get her into treatment. She will be placed at [facility] where she would hopefully get both treatment for her mental health issues as well as her substance abuse issues. Orders Orders Diet Regular Basic (01/17/18 Dinner) Diet Regular Basic (01/18/18 Breakfast) Diet Regular Basic (01/18/18 Lunch) Results Vital Signs Date Time Temp Pulse Resp B/P (MAP) Pulse Ox O2 Delivery O2 Flow Rate FiO2 01/18/18 10:00 97.8 74 16 114/78 (90) 99 Room Air 01/18/18 05:38 70 16 95/67 (76) Room Air 01/18/18 02:35 65 16 87/62 (70) Room Air 01/17/18 21:14 72 18 95/52 (66) Room Air 01/17/18 18:32 97.3 85 16 118/68 (85) 97 Room Air 01/17/18 14:42 98.1 88 17 128/78 (95) 97 Room Air 01/17/18 14:31 01/17/18 13:05 74 18 130/82 (98) 100 Room Air Diagnosis Primary Impression: Medical clearance for psychiatric admission Additional Impressions: Polysubstance abuse Unspecified psychosis Condition: Stable Problem Qualifiers Bella Grimes Jan 18, 2018 11:32
== END 2018-01-18 13:39 ==
LOC: NEPD 07:57 → NEPJ 01-18 13:39
DX: F19.10 Other psychoactive substance abuse, uncomplicated (principal); F29 Unspecified psychosis not due to a substance or known physiological condition; R45.851 Suicidal ideations; F41.9 Anxiety disorder, unspecified; F32.9 Major depressive disorder, single episode, unspecified; I10 Essential (primary) hypertension; F12.90 Cannabis use, unspecified, uncomplicated; F14.90 Cocaine use, unspecified, uncomplicated; Z72.0 Tobacco use
CPT/HCPCS: 80053; 80307; 84703; 85025; 99283

== ENCOUNTER 2018-07-06 08:50 | Observation (INO) ==
--- NOTE | 2018-07-06 09:23 | ED ---
HPI General Chief Complaint: Overdose Stated Complaint: overdose Time Seen by Provider: 07/06/18 09:18 Source: patient Mode of arrival: ambulatory Limitations: no limitations History of Present Illness HPI Narrative: 38-year-old female patient with history of bipolar disorder and depression presents to the ER today because she had taken an intentional overdose of her Haldol, took 10 mg of Haldol, 10 pills, at around 8:30 this morning. She states that she is feeling sleepy, and has a dry mouth. She denies any palpitations, chest pains, dizziness, or any other symptoms at this point. She denies any other ingestions. She states that she was anxious, and tired of it. She has been Beasley acted by me in the ER. Related Data Home Medications Medication Instructions Recorded Confirmed haloperidol 10 mg PO BID 07/03/18 07/06/18 hydroxyzine pamoate [Vistaril] 50 mg PO TID PRN 07/03/18 07/06/18 benztropine 1 mg PO BID 07/06/18 07/06/18 haloperidol decanoate [Haldol 150 mg IM Q4W 07/06/18 07/06/18 Decanoate] mirtazapine 15 mg PO HS 07/06/18 07/06/18 olanzapine 10 mg PO DAILY 07/06/18 07/06/18 olanzapine 20 mg PO HS 07/06/18 07/06/18 Previous Rx's Medication Instructions Recorded tamsulosin [Flomax] 0.4 mg PO DAILY 30 Days #30 cap 06/26/18 Allergies Allergy/AdvReac Type Severity Reaction Status Date / Time No Known Allergies Allergy Verified 06/26/18 11:06 Review of Systems ROS: all other systems reviewed are negative [facility] Medical History Medical History Anxiety (Acute) Bipolar 1 disorder, depressed (Acute) Depression (Acute) Frequent UTI (Acute) Schizophrenia (Acute) Surgical History Surgical History No history of previous surgery (Acute) Social History Social History Substance History: No History of Abuse Second Hand Smoke Exposure: Yes Smoking Status: Current every day smoker Tobacco Type: Cigarettes How Often Do You Have a Drink Containing Alcohol: 2 to 3 times a week Recent Travel in [place] within the Last 8 Weeks: No Recent Out of Country Travel within the Last 8 Weeks: No Immunization History Tetanus Immunization: Unsure Exam Narrative Exam Narrative: GENERAL: Well-developed middle-age female patient currently in mild distress. Awake and oriented x3. SKIN: Focused skin assessment warm/dry. HEAD: Atraumatic. Normocephalic. EYES: Pupils equal and round. No scleral icterus. No injection or drainage. ENT: No nasal bleeding or discharge. Mucous membranes pink and moist. NECK: Trachea midline. No JVD. CARDIOVASCULAR: Regular rate and rhythm. No murmur appreciated. RESPIRATORY: No accessory muscle use. Clear to auscultation. Breath sounds equal bilaterally. GASTROINTESTINAL: Abdomen soft, non-tender, nondistended. Hepatic and splenic margins not palpable. MUSCULOSKELETAL: No obvious deformities. No clubbing. No cyanosis. No edema. NEUROLOGICAL: Awake and alert. No obvious cranial nerve deficits. Motor grossly within normal limits. Normal speech. PSYCHIATRIC: Appropriate mood and flat affect; insight and judgment poor. Course Initial Documented Vital Signs Temperature 97.5 F L 07/06/18 08:52 Pulse Rate 82 07/06/18 08:52 Respiratory Rate 16 07/06/18 08:52 Blood Pressure 134/81 07/06/18 08:52 Pulse Oximetry 98 07/06/18 08:52 Last Documented Vital Signs Temperature 97.5 F L 07/06/18 08:52 Pulse Rate 82 07/06/18 08:52 Respiratory Rate 16 07/06/18 08:52 Blood Pressure 134/81 07/06/18 08:52 Pulse Oximetry 97 07/06/18 09:18 Medical Decision Making MDM Narrative Medical decision making narrative: EKG did not show significant dysrhythmias. Lab work was fairly unremarkable. No significant coingestions or urine toxicology screen abnormalities. At this point, vital signs are stable and case had been discussed with poison control, they state that she can be given Ativan as needed. Supportive care. She has been Beasley acted by me in the ER. Case is discussed with Dr. Toney for admission. Medical Screen Exam Complete: Yes Emergency Medical Condition: Yes Differential Diagnosis Differential Diagnosis: Rule out coingestions, intentional overdose of Haldol Lab Data Lab results reviewed: Yes I reviewed the patient's lab results. Result diagrams: 07/06/18 09:10 07/06/18 09:10 POC Results POC Urine Results Negative Lab Results 07/06/18 07/06/18 07/06/18 Range/Units 09:10 09:10 09:10 WBC 7.6 (4.0-11.0) th/mm3 RBC 4.78 (4.00-5.30) mil/mm3 Hgb 15.3 (11.6-15.3) gm/dL Hct 43.2 (35.0-46.0) % MCV 90.5 (80.0-100.0) fL MCH 32.0 (27.0-34.0) pg MCHC 35.4 (32.0-36.0) % RDW 12.7 (11.6-17.2) % Plt Count 223 (150-450) th/mm3 MPV 8.0 (7.0-11.0) fL Neut % (Auto) 68.9 (16.0-70.0) % Lymph % (Auto) 22.7 (9.0-44.0) % [place] % (Auto) 6.9 (0.0-8.0) % Eos % (Auto) 1.0 (0.0-4.0) % Baso % (Auto) 0.5 (0.0-2.0) % Neut # (Auto) 5.3 (1.8-7.7) th/mm3 Lymph # (Auto) 1.7 (1.0-4.8) th/mm3 [place] # (Auto) 0.5 (0.0-0.9) th/mm3 Eos # (Auto) 0.1 (0.0-0.4) th/mm3 Baso # (Auto) 0.0 (0.0-0.2) th/mm3 WBC Differential . Differential Comment Auto diff final Sodium 137 (136-145) meq/L Potassium 4.2 (3.5-5.1) meq/L Chloride 104 (98-107) meq/L Carbon Dioxide 26.0 (21.0-32.0) meq/L Anion Gap 7 (5-15) meq/L BUN 13 (7-18) mg/dL Creatinine 0.86 (0.50-1.00) mg/dL Estimated GFR 73 L (>89) mL/min Random Glucose 101 (74-106) mg/dL Calcium 8.9 (8.5-10.1) mg/dL Total Bilirubin 0.6 (0.2-1.0) mg/dL AST 25 (15-37) U/L ALT 23 (10-53) U/L Alkaline Phosphatase 58 (45-117) U/L Total Protein 7.8 (6.4-8.2) g/dL Albumin 4.3 (3.4-5.0) g/dL Urine Color (Yellw/Straw) Urine Clarity (Clear) Urine pH (5.0-8.5) Ur Specific [employer] (1.002-1.035) Urine Protein (Neg-Trace) mg/dL Urine Glucose (UA) (Negative) mg/dL Urine Ketones (Negative) mg/dL Urine Occult Blood (Negative) Urine Nitrate (Negative) Urine Bilirubin (Negative) Urine Urobilinogen (Less than 2) mg/dL Ur Leukocyte Esterase (Negative) Urine RBC (0-3) /hpf Urine WBC (0-5) /hpf Ur Squamous Epith Cells (0-5) /hpf Urine Bacteria (None) /hpf Urine Mucus (Occasional) /lpf Micro UA Comment Ur Microscopic Review Urine Culture Comments Salicylates 2.0 L (2.8-20.0) mg/dL Urine Opiates Screen (Neg) Acetaminophen Less than 2.0 L (10.0-30.0) mcg/mL Ur Barbiturates Screen (Neg) Ur Amphetamines Screen (Neg) U Benzodiazepines Scrn (Neg) Urine Cocaine Screen (Neg) U Cannabinoids Screen (Neg) Serum Alcohol Less than 3 (0-5) mg/dL 07/06/18 07/06/18 Range/Units 09:15 09:15 WBC (4.0-11.0) th/mm3 RBC (4.00-5.30) mil/mm3 Hgb (11.6-15.3) gm/dL Hct (35.0-46.0) % MCV (80.0-100.0) fL MCH (27.0-34.0) pg MCHC (32.0-36.0) % RDW (11.6-17.2) % Plt Count (150-450) th/mm3 MPV (7.0-11.0) fL Neut % (Auto) (16.0-70.0) % Lymph % (Auto) (9.0-44.0) % [place] % (Auto) (0.0-8.0) % Eos % (Auto) (0.0-4.0) % Baso % (Auto) (0.0-2.0) % Neut # (Auto) (1.8-7.7) th/mm3 Lymph # (Auto) (1.0-4.8) th/mm3 [place] # (Auto) (0.0-0.9) th/mm3 Eos # (Auto) (0.0-0.4) th/mm3 Baso # (Auto) (0.0-0.2) th/mm3 WBC Differential Differential Comment Sodium (136-145) meq/L Potassium (3.5-5.1) meq/L Chloride (98-107) meq/L Carbon Dioxide (21.0-32.0) meq/L Anion Gap (5-15) meq/L BUN (7-18) mg/dL Creatinine (0.50-1.00) mg/dL Estimated GFR (>89) mL/min Random Glucose (74-106) mg/dL Calcium (8.5-10.1) mg/dL Total Bilirubin (0.2-1.0) mg/dL AST (15-37) U/L ALT (10-53) U/L Alkaline Phosphatase (45-117) U/L Total Protein (6.4-8.2) g/dL Albumin (3.4-5.0) g/dL Urine Color Straw (Yellw/Straw) Urine Clarity Clear (Clear) Urine pH 6.0 (5.0-8.5) Ur Specific [employer] 1.004 (1.002-1.035) Urine Protein Negative (Neg-Trace) mg/dL Urine Glucose (UA) Negative (Negative) mg/dL Urine Ketones Trace H (Negative) mg/dL Urine Occult Blood Negative (Negative) Urine Nitrate Negative (Negative) Urine Bilirubin Negative (Negative) Urine Urobilinogen Less than 2 (Less than 2) mg/dL Ur Leukocyte Esterase Negative (Negative) Urine RBC Less than 1 (0-3) /hpf Urine WBC 1 (0-5) /hpf Ur Squamous Epith Cells 1 (0-5) /hpf Urine Bacteria Rare H (None) /hpf Urine Mucus Few H (Occasional) /lpf Micro UA Comment Culture not ind Ur Microscopic Review Not Reportable Urine Culture Comments Culture not ind Salicylates (2.8-20.0) mg/dL Urine Opiates Screen Neg (Neg) Acetaminophen (10.0-30.0) mcg/mL Ur Barbiturates Screen Neg (Neg) Ur Amphetamines Screen Neg (Neg) U Benzodiazepines Scrn Neg (Neg) Urine Cocaine Screen Neg (Neg) U Cannabinoids Screen Neg (Neg) Serum Alcohol (0-5) mg/dL ECG Data Attestation: I personally reviewed and interpreted this ECG as follows: Interpretation: EKG shows only beats per minute. QRS duration is 102 ms. QTC is 437 ms. No signs of acute ST elevations or depressions. Discharge Plan Discharge Disposition Patient Disposition: 30 Still Patient Discharge Condition Condition: Stable Discharge Details Anticipated Discharge Date: 07/06/18 Diagnosis: Drug overdose Physicians Team ED Provider: Josie Stiles Primary Care Provider: Primary Care Physici,Sheila Rxs /Orders / Referrals /Forms Prescriptions: No Action tamsulosin [Flomax] 0.4 mg capsule 0.4 mg PO DAILY 30 Days Qty: 30 RF: 0 hydroxyzine pamoate [Vistaril] 50 mg Capsule 50 mg PO TID PRN (Reason: Anxiety) RF: 0 haloperidol 10 mg Tablet 10 mg PO BID RF: 0 olanzapine 10 mg Tablet 10 mg PO DAILY RF: 0 olanzapine 10 mg Tablet 20 mg PO HS RF: 0 benztropine 1 mg Tablet 1 mg PO BID RF: 0 haloperidol decanoate [Haldol Decanoate] 50 mg/mL Solution 150 mg IM Q4W RF: 0 mirtazapine 15 mg Tablet 15 mg PO HS RF: 0 Status ED Status: With Doctor
[2018-07-06 09:44] LABS: Baso % (Auto) 0.5 % (0.0-2.0); Eos # (Auto) 0.1 th/mm3 (0.0-0.4); Hematocrit 43.2 % (35.0-46.0); Hemoglobin 15.3 gm/dL (11.6-15.3); Lymph # (Auto) 1.7 th/mm3 (1.0-4.8); Lymph % (Auto) 22.7 % (9.0-44.0); Mean Corpuscular HGB Conc 35.4 % (32.0-36.0); Mean Corpuscular Volume 90.5 fL (80.0-100.0); Mono # (Auto) 0.5 th/mm3 (0.0-0.9); Mono % (Auto) 6.9 % (0.0-8.0); Neut # (Auto) 5.3 th/mm3 (1.8-7.7); Neut % (Auto) 68.9 % (16.0-70.0); Platelet Count 223 th/mm3 (150-450); Red Blood Count 4.78 mil/mm3 (4.00-5.30); Red Cell Distribution Width 12.7 % (11.6-17.2); White Blood Count 7.6 th/mm3 (4.0-11.0)
[2018-07-06 09:59] LABS: Amphetamine Screen,Urine Neg (Neg); Bacteria,Urine Rare /hpf; Barbiturate Screen,Urine Neg (Neg); Bilirubin,Urine Negative (Negative); Cannabinoid Screen,Urine Neg (Neg); Clarity,Urine Clear (Clear); Cocaine Screen,Urine Neg (Neg); Color,Urine Straw (Yellw/Straw); Glucose,Urine (UA) Negative (Negative); Leukocyte Esterase,Urine Negative (Negative); Mucus,Urine Few /lpf (Occasional); Nitrite,Urine Negative (Negative); Specific Gravity,Urine 1.004 (1.002-1.035); Squamous Epithelial Cell,Urine 1 /hpf (0-5)
[2018-07-06 10:03] LABS: Opiate Screen,Urine Neg (Neg)
[2018-07-06 10:06] LABS: Alanine Aminotransferase 23 U/L (10-53)
[2018-07-06 10:08] LABS: Albumin 4.3 g/dL (3.4-5.0); Alkaline Phosphatase 58 U/L (45-117); Anion Gap 7 meq/L (5-15); Aspartate Aminotransferase 25 U/L (15-37); Blood Urea Nitrogen 13 mg/dL (7-18); Calcium 8.9 mg/dL (8.5-10.1); Chloride 104 meq/L (98-107); Glomerular Filtration Rate 73 mL/min (>89); Glucose,Random 101 mg/dL (74-106); Sodium 137 meq/L (136-145); Total Protein 7.8 g/dL (6.4-8.2)
[2018-07-06 10:09] LABS: Potassium 4.2 meq/L (3.5-5.1)
--- NOTE | 2018-07-06 10:48 | P.HPIM ---
History of Present Illness Primary Care Physician: No Primary Care Physician History of Present Illness: 38 year old female with bipolar disorder, schizophrenia per the patient, and history of polysubstance abuse admitted under observation for intentional Haldol overdose. She reportedly took about ten 1mg Haldol tablets around 8:30 this morning. She denies any other co-ingestions. She states that she has had overwhelming anxiety lately as well as daily panic attacks. She reports this morning she was just "tired of it" and wanted it all to end. Presently she continues to feel suicidal and complains of fatigue and dry mouth. She denies chest pain, shortness of breath, abdominal pain, nausea, vomiting, urinary retention, diarrhea, EPS, or akathisias. She follows with a psychiatrist and was last seen about a month ago. She endorses prior suicide attempts by overdose. She has had psychiatric admissions in the past. The last in the EMR is an admission in December for psychosis. She denies any alcohol or substance use but in the past has used cocaine, alcohol, amphetamines, and benzodiazepines. She reports a history of benzodiazepine withdrawal seizures. PMH: bipolar disorder, depression, anxiety, psychosis Surgical history: None Family history: "Probably" depression in her parents otherwise no other medical conditions in her parents, unknown cancer in her grandfather Social history: Homeless and currently living with boyfriend's family, smokes 1/ 2PPD, denies EtOH or other substance use - Diagnosis (1) Suicidal ideation (2) Drug overdose Review of Systems All other systems reviewed negative except as stated in HPI [facility] - History History Provided By: Patient - Medical History Medical History: Medical History (Last Reviewed 07/06/18 @ 11:28 by Madyson Gallegos MD) Depression Schizophrenia Anxiety Bipolar 1 disorder, depressed Frequent UTI - Surgical History Surgical History: Surgical History (Last Reviewed 07/06/18 @ 09:24 by Josie Stiles MD) No history of previous surgery - Social History I have reviewed the patient's Social History: Yes - Tobacco History Second Hand Smoke Exposure: Yes Tobacco Use In Past 30 Days: Yes Smoking Status: Current every day smoker Tobacco Type: Cigarettes - Alcohol History How Often Do You Have a Drink Containing Alcohol: 2 to 3 times a week - Substance Use History Substance History: No History of Abuse - Travel History Recent Travel in the [place] Within the Last 8 Weeks: No Recent Travel Out of the Country Within the Last 8 Weeks: No - Immunization History Tetanus Immunization: Unsure Medications and Allergies Allergies Allergy/AdvReac Type Severity Reaction Status Date / Time No Known Allergies Allergy Verified 06/26/18 11:06 Home Medications Medication Instructions Recorded Confirmed Type haloperidol 10 mg PO BID 07/03/18 07/06/18 History hydroxyzine pamoate [Vistaril] 50 mg PO TID PRN 07/03/18 07/06/18 History benztropine 1 mg PO BID 07/06/18 07/06/18 History haloperidol decanoate [Haldol 150 mg IM Q4W 07/06/18 07/06/18 History Decanoate] mirtazapine 15 mg PO HS 07/06/18 07/06/18 History olanzapine 10 mg PO DAILY 07/06/18 07/06/18 History olanzapine 20 mg PO HS 07/06/18 07/06/18 History Exam Vital signs: Vital Signs 07/06/18 08:52 07/06/18 09:18 Temperature 97.5 F L Pulse Rate 82 Respiratory Rate 16 Blood Pressure 134/81 Pulse Oximetry 98 97 Intake & Output 07/05/18 07/06/18 07/06/18 18:59 06:59 18:59 Weight 63.503 kg Narrative: GENERAL: WN, WD female resting in bed in [facility]. SKIN: Warm and dry. Face and chest skin is hyperemic. HEENT: AT/NC. PERRLA. EOMI. MMM. NECK: Supple no tender LAD or JVD. HEART: RRR no m/r/g. LUNGS: CTAB without wheezes or crackles. ABDOMEN: +BS, soft, NT, ND. EXTREMITIES: No LE edema. NEURO: Awake and alert. PSYCH: Not responding to internal stimuli. Results - Labs CBC & Chem 7: 07/06/18 09:10 07/06/18 09:10 Labs: Short CBC 07/06/18 Range/Units 09:10 WBC 7.6 (4.0-11.0) th/mm3 Hgb 15.3 (11.6-15.3) gm/dL Hct 43.2 (35.0-46.0) % Plt Count 223 (150-450) th/mm3 BMP 07/06/18 09:10 Sodium 137 Potassium 4.2 Chloride 104 Carbon Dioxide 26.0 BUN 13 Creatinine 0.86 Calcium 8.9 Liver Function 07/06/18 Range/Units 09:10 Total Bilirubin 0.6 (0.2-1.0) mg/dL AST 25 (15-37) U/L ALT 23 (10-53) U/L Alkaline Phosphatase 58 (45-117) U/L Albumin 4.3 (3.4-5.0) g/dL Urine 07/06/18 Range/Units 09:15 Urine Color Straw (Yellw/Straw) Urine Clarity Clear (Clear) Urine pH 6.0 (5.0-8.5) Ur Specific [place] 1.004 (1.002-1.035) Urine Protein Negative (Neg-Trace) mg/dL Urine Glucose (UA) Negative (Negative) mg/dL Caprini VTE Risk Assessment Caprini VTE Risk Assessment: No/Low Risk (score <= 1) Caprini Risk Assessment Model: Point Value = 1 Point Value = 2 Point Value = 3 Point Value = 5 Age 41-60 Minor surgery BMI > 25 kg/m2 Swollen legs Varicose veins or History of unexplained or recurrent spontaneous Oral contraceptives or hormone replacement Sepsis (< 1 month) Serious lung disease, including pneumonia (< 1 month) Abnormal pulmonary function Acute myocardial infarction Congestive heart failure (< 1 month) History of inflammatory bowel disease Medical patient at bed rest Age 61-74 Arthroscopic surgery Major open surgery (> 45 min) Laparoscopic surgery (> 45 min) Malignancy Confined to bed (> 72 hours) Immobilizing plaster cast Central venous access Age >= 75 History of VTE Family history of VTE Factor V Leiden Prothrombin [id number] Lupus anticoagulant Anticardiolipin antibodies Elevated serum homocysteine Heparin-induced thrombocytopenia Other congenital or acquired thrombophilia Stroke (< 1 month) Elective arthroplasty Hip, pelvis, or leg fracture Acute spinal cord injury (< 1 month) Prophylaxis Regimen: Total Risk Factor Score Risk Level Prophylaxis Regimen 0-1 Low Early ambulation 2 Moderate Order ONE of the following: *Sequential Compression Device (SCD) *Heparin 5000 units SQ BID 3-4 Higher Order ONE of the following medications: *Heparin 5000 units SQ TID *Enoxaparin/Lovenox 40 mg SQ daily (WT < 150 kg, CrCl > 30 mL/min) *Enoxaparin/Lovenox 30 mg SQ daily (WT < 150 kg, CrCl > 10-29 mL/min) *Enoxaparin/Lovenox 30 mg SQ BID (WT < 150 kg, CrCl > 30 mL/min) AND/OR *Sequential Compression Device (SCD) 5 or more Highest Order ONE of the following medications: *Heparin 5000 units SQ TID (Preferred with Epidurals) *Enoxaparin/Lovenox 40 mg SQ daily (WT < 150 kg, CrCl > 30 mL/min) *Enoxaparin/Lovenox 30 mg SQ daily (WT < 150 kg, CrCl > 10-29 mL/min) *Enoxaparin/Lovenox 30 mg SQ BID (WT < 150 kg, CrCl > 30 mL/min) AND *Sequential Compression Device (SCD) Assessment and Plan - Assessment (1) Suicidal ideation Code(s): R45.851 - Suicidal ideations Status: Acute (2) Drug overdose Code(s): T50.901A - Poisoning by unspecified drugs, medicaments and biological substances, accidental (unintentional), initial encounter Status: Acute - Plan 38 year old female with history of bipolar disorder admitted under observation for intentional Haldol overdose. 1. Intentional overdose with suicidal ideations - Ingested ~10 mg Haldol - EKG with no arrhythmias or QT prolongation - Labs unremarkable - Reports no co-ingestion. EtOH level negative, UDS negative, salicylate and acetaminophen levels not elevated - Monitor on tele - IV Benadryl PRN EPS - Beasley Acted, psychiatry consulted - Sitter - Supportive care - NS at 100 ml/hr 2. Bipolar disorder - Home meds held for now - Psych consulted 3. History of polysubstance abuse - Denies any current use - UDS negative DVT prophylaxis: low risk, encourage ambulation Code Status: Patient currently suicidal and cannot decide on her code status. Will need to reevaluate Discussed Condition With: Patient and Dr. Stiles
[2018-07-06] MEDS ORDERED: Bisacodyl 10 MG Supp RECTAL PRN (11:02)
[2018-07-06] MEDS ORDERED: Acetaminophen 325 MG Tablet PO PRN (11:02)
[2018-07-06] MEDS ORDERED: Senna/Docusate Sodium 8.6/50 MG Tablet PO PRN (11:02)
[2018-07-06] MEDS ORDERED: Sodium Chloride 0.9% 2 ML Flush PRN IV.FLUSH (11:27)
[2018-07-06] MEDS: Sod Chloride 0.9% Inj 1,000 ML IV.CONT SCH ×2 (11:48→21:22)
--- NOTE | 2018-07-06 17:18 | P.CONPSY ---
Provisional Diagnosis Admission Date: July 06, 2018 10:53 History of Present Illness Consult date: 07/06/18 Reason for Consult: Overdose Primary Care Provider: No Primary Care Physician Chief Complaint: Overdose History of Present Illness: This is a request for a psychiatric consult. Documentation was reviewed, case was discussed with nursing and patient was evaluated. Patient is a 38-year-old female brought to the ER [facility] act after an overdose on half a bottle of Haldol. Patient denies general life stressors as a reason for her overdose. Per nursing she has been inconsistent with her statements at times saying she was not suicidal but later saying she was. Patient notes a history of bipolar disorder and schizophrenia. Stressors include an increase in panic attacks where she cannot breathe and has tachycardia. Her Vistaril is no longer working. Today, she denies any auditory or visual hallucinations. He denies any paranoia. She does admit to depressed mood and has suicidal ideation with intent but no plan. Patient says that if a gun or knife poor in front of her at this time she is not sure if she would hurt herself or not. Past psych: Patient has been seeing a psychiatrist in [place] and says she had been compliant with her medications. She feels that the Haldol was working for psychosis. She describes 1 other inpatient admission where she had thoughts of jumping in front of a car. 3 total suicide attempts with the other being overdosing on a bottle of Xanax in front of a [place] police [place] so she would not go to senior care. Past medical: Denies Past Famhx: Uncle had schizophrenia Past Social: Patient had one DUI, she notes a recent increase in alcohol consumption drinking every other day. However she says for the last week she is only had 1 drink a week. She has a history of cocaine use. She is currently and has 1 child who is grown out. 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 Review of Systems All other systems reviewed negative except as stated in HPI [facility] - History History Provided By: Patient - Medical History Medical History: Medical History (Last Reviewed 07/06/18 @ 17:16 by Pranav Campbell DO) Depression Schizophrenia Anxiety Bipolar 1 disorder, depressed Frequent UTI - Surgical History Surgical History: Surgical History (Last Reviewed 07/06/18 @ 17:16 by Pranav Campbell DO) No history of previous surgery - Tobacco History Second Hand Smoke Exposure: Yes Tobacco Use In Past 30 Days: Yes Smoking Status: Current every day smoker Tobacco Type: Cigarettes - Alcohol History How Often Do You Have a Drink Containing Alcohol: 2 to 4 times a month - Substance Use History Substance History: Past History - Travel History Recent Travel in the [place] Within the Last 8 Weeks: No Recent Travel Out of the Country Within the Last 8 Weeks: No - Immunization History Tetanus Immunization: Unsure Medications and Allergies Active Medications: Active Medications Acetaminophen (Tylenol) 650 mg PO Q4H PRN PRN Reason: Temp > 100.4 Al Hydroxide/Mg Hydroxide (Milk Of Magnesia Liq) 30 ml PO Q12H PRN PRN Reason: Mild Constipation Benztropine Mesylate (Cogentin) 1 mg PO BID NAWAF Bisacodyl (Dulcolax Supp) 10 mg RECTAL DAILY PRN PRN Reason: SEVERE CONSITIPATION Diphenhydramine HCl (Benadryl Inj) 25 mg IV.PUSH Q4H PRN PRN Reason: EXTRA PYRAMIDAL SYMPTOMS Sodium Chloride (Ns Inj) 1,000 mls @ 100 mls/hr IV.CONT .Q10H [facility] Last Admin: 07/06/18 11:48 Dose: 100 mls/hr Lactulose (Lactulose Liq) 30 ml PO DAILY PRN PRN Reason: SEVERE CONSITIPATION Senna/Docusate Sodium (Shahana-Colace) 1 tab PO BID PRN PRN Reason: MILD CONSTIPATION Sennosides (Senokot) 17.2 mg PO Q12H PRN PRN Reason: Moderate Constipation Sodium Chloride (Ns Flush) 2 ml IV.FLUSH BID NAWAF Sodium Chloride (Ns Flush) 2 ml IV.FLUSH PRN PRN PRN Reason: FLUSH AFTER USING IV ACCESS Allergies Allergy/AdvReac Type Severity Reaction Status Date / Time No Known Allergies Allergy Verified 06/26/18 11:06 Home Medications Medication Instructions Recorded Confirmed Type haloperidol 10 mg PO BID 07/03/18 07/06/18 History hydroxyzine pamoate [Vistaril] 50 mg PO TID PRN 07/03/18 07/06/18 History benztropine 1 mg PO BID 07/06/18 07/06/18 History haloperidol decanoate [Haldol 150 mg IM Q4W 07/06/18 07/06/18 History Decanoate] mirtazapine 15 mg PO HS 07/06/18 07/06/18 History olanzapine 10 mg PO DAILY 07/06/18 07/06/18 History olanzapine 20 mg PO HS 07/06/18 07/06/18 History Exam Vital signs: Vital Signs 07/06/18 08:52 07/06/18 09:18 07/06/18 11:12 Temperature 97.5 F L Pulse Rate 82 73 Respiratory Rate 16 21 Blood Pressure 134/81 137/90 Pulse Oximetry 98 97 100 07/06/18 12:00 07/06/18 16:00 Temperature 98.1 F 98.7 F Pulse Rate 73 79 Respiratory Rate 16 12 Blood Pressure 112/73 100/70 Pulse Oximetry 98 98 Intake & Output 07/05/18 07/06/18 07/06/18 18:59 06:59 18:59 Weight 67.807 kg Mental Status Examination Appearance: Disheveled Consciousness: Alert Orientation: x4 Motor Activity: Normal gait Speech: Hesitant, Slow Language: Adequate Fund of Knowledge: Adequate Attention and Concentration: Adequate Memory: Unremarkable Mood: Sad Affect: Blunt Thought Process & Associations: Intact Thought Content: Appropriate Hallucination Type: None Delusion Type: None Suicidal Ideation: Yes Suicidal Plan: No Suicidal Intention: Yes Homicidal Ideation: No Homicidal Plan: No Homicidal Intention: No Insight: Fair Judgment: Impulsive Assessment and Plan - Assessment (1) Schizoaffective disorder Code(s): F25.9 - Schizoaffective disorder, unspecified Status: Acute - Plan Plan: Estimated LOS: [] days Continue one-to-one. I recommend she be started on the CIWA protocol. Continue medical care as needed. I recommend patient be transferred to the psychiatric unit after medically cleared given her intentional overdose. Justification for Continued Inpatient Stay: Patient would decompensate in a less restrictive setting
[2018-07-06] MEDS: Sodium Chloride 0.9% 2 ML Flush BID IV.FLUSH SCH (21:22)
[2018-07-06 23:25] VITALS: RESP 16
[2018-07-07 03:44] VITALS: O2SAT 98
[2018-07-07 07:16] VITALS: BP 113/58; TEMP 97.6
[2018-07-07] MEDS: Sod Chloride 0.9% Inj 1,000 ML IV.CONT SCH (08:25)
[2018-07-07] MEDS: Sodium Chloride 0.9% 2 ML Flush BID IV.FLUSH SCH (08:26)
--- NOTE | 2018-07-07 08:40 | P.DS ---
Date of admission: 07/06/18 10:53 Primary care physician: No Primary Care Physician Attending physician on discharge: Madyson Gallegos Anticipated date of discharge: 07/07/18 Brief History from admission: 38 year old female with bipolar disorder, schizophrenia per the patient, and history of polysubstance abuse admitted under observation for intentional Haldol overdose. She reportedly took about ten 1mg Haldol tablets around 8:30 this morning. She denies any other co-ingestions. She states that she has had overwhelming anxiety lately as well as daily panic attacks. She reports this morning she was just "tired of it" and wanted it all to end. Presently she continues to feel suicidal and complains of fatigue and dry mouth. She denies chest pain, shortness of breath, abdominal pain, nausea, vomiting, urinary retention, diarrhea, EPS, or akathisias. She follows with a psychiatrist and was last seen about a month ago. She endorses prior suicide attempts by overdose. She has had psychiatric admissions in the past. The last in the EMR is an admission in December for psychosis. She denies any alcohol or substance use but in the past has used cocaine, alcohol, amphetamines, and benzodiazepines. She reports a history of benzodiazepine withdrawal seizures. PMH: bipolar disorder, depression, anxiety, psychosis Surgical history: None Family history: "Probably" depression in her parents otherwise no other medical conditions in her parents, unknown cancer in her grandfather Social history: Homeless and currently living with boyfriend's family, smokes 1/ 2PPD, denies EtOH or other substance use Patient update on day of discharge: Pt reports still feeling decreased energetic and tired but she attributes this to feeling down, depressed, and hopeless. Denies chest pain, shortness of breath , abdominal pain, nausea, or vomiting. Her appetite is decreased but she states she is eating. She is aware of needing inpatient psychiatric care and has no objections. DS: Diagnosis - Discharge Diagnosis (1) Suicidal ideation Status: Acute (2) Drug overdose Status: Acute DS: Summary Hospital Course: 38 year old female with history of bipolar disorder admitted on 07/06 under observation and [facility] for intentional Haldol overdose. She was treated supportively with close monitoring and IV fluids. Psychiatry was consulted who recommended inpatient psychiatric care. She was medically stable and discharged to [facility] on 07/07. - Time Spent with Patient Total time spent providing and/or coordinating discharge services: Less than 30 minutes - Quality: VTE Deep Vein Thrombosis/Pulmonary Embolism Present on Admission: No Exam Vital signs: Vital Signs 07/06/18 08:52 07/06/18 09:18 07/06/18 11:12 Temperature 97.5 F L Pulse Rate 82 73 Respiratory Rate 16 21 Blood Pressure 134/81 137/90 Pulse Oximetry 98 97 100 07/06/18 12:00 07/06/18 16:00 07/06/18 19:16 Temperature 98.1 F 98.7 F 98.2 F Pulse Rate 73 79 72 Respiratory Rate 16 12 17 Blood Pressure 112/73 100/70 114/64 Pulse Oximetry 98 98 96 07/06/18 20:00 07/06/18 23:23 07/07/18 03:44 Temperature 98.0 F 98.2 F Pulse Rate 67 62 65 Respiratory Rate 16 16 Blood Pressure 94/62 L 99/57 L Pulse Oximetry 96 98 07/07/18 04:01 07/07/18 07:15 Temperature 97.6 F Pulse Rate 63 61 Respiratory Rate 16 Blood Pressure 113/58 L Pulse Oximetry 98 Intake & Output 07/06/18 07/07/18 07/07/18 18:59 06:59 18:59 Intake Total 1000 / 1000 1000 / 1000 Balance 1000 / 1000 1000 / 1000 Weight 67.807 kg 67.807 kg Intake: IV 1000 / 1000 1000 / 1000 NS Inj 1,000 ML @ 100 mls/hr IV 1000 / 1000 1000 / 1000 .CONT .Q10H NAWAF Rx#:[id number] Other: # Voids 2 3 Weight On Admission 67.807 kg Narrative: GENERAL: WN, WD female resting in bed in [facility]. SKIN: Warm and dry. HEENT: AT/NC. MMM. NECK: Supple no tender LAD or JVD. HEART: RRR no m/r/g. LUNGS: CTAB without wheezes or crackles. ABDOMEN: +BS, soft, NT, ND. EXTREMITIES: No LE edema. NEURO: Awake and alert. PSYCH: Not responding to internal stimuli. Results Procedures completed during hospitalization: None Labs on day of discharge: Labs from last 24 hours 07/06/18 07/06/18 07/06/18 09:15 09:15 09:10 WBC RBC Hgb Hct MCV MCH MCHC RDW Plt Count MPV Neut % (Auto) Lymph % (Auto) Ray % (Auto) Eos % (Auto) Baso % (Auto) Neut # (Auto) Lymph # (Auto) Ray # (Auto) Eos # (Auto) Baso # (Auto) WBC Differential Differential Comment Sodium Potassium Chloride Carbon Dioxide Anion Gap BUN Creatinine Estimated GFR Random Glucose Calcium Total Bilirubin AST ALT Alkaline Phosphatase Total Protein Albumin Urine Color Straw Urine Clarity Clear Urine pH 6.0 Ur Specific [place] 1.004 Urine Protein Negative Urine Glucose (UA) Negative Urine Ketones Trace H Urine Occult Blood Negative Urine Nitrate Negative Urine Bilirubin Negative Urine Urobilinogen Less than 2 Ur Leukocyte Esterase Negative Urine RBC Less than 1 Urine WBC 1 Ur Squamous Epith Cells 1 Urine Bacteria Rare H Urine Mucus Few H Micro UA Comment Culture not ind Ur Microscopic Review Not Reportable Urine Culture Comments Culture not ind Salicylates 2.0 L Urine Opiates Screen Neg Acetaminophen Ur Barbiturates Screen Neg Ur Amphetamines Screen Neg U Benzodiazepines Scrn Neg Urine Cocaine Screen Neg U Cannabinoids Screen Neg Serum Alcohol 07/06/18 07/06/18 09:10 09:10 WBC 7.6 RBC 4.78 Hgb 15.3 Hct 43.2 MCV 90.5 MCH 32.0 MCHC 35.4 RDW 12.7 Plt Count 223 MPV 8.0 Neut % (Auto) 68.9 Lymph % (Auto) 22.7 Ray % (Auto) 6.9 Eos % (Auto) 1.0 Baso % (Auto) 0.5 Neut # (Auto) 5.3 Lymph # (Auto) 1.7 Ray # (Auto) 0.5 Eos # (Auto) 0.1 Baso # (Auto) 0.0 WBC Differential . Differential Comment Auto diff final Sodium 137 Potassium 4.2 Chloride 104 Carbon Dioxide 26.0 Anion Gap 7 BUN 13 Creatinine 0.86 Estimated GFR 73 L Random Glucose 101 Calcium 8.9 Total Bilirubin 0.6 AST 25 ALT 23 Alkaline Phosphatase 58 Total Protein 7.8 Albumin 4.3 Urine Color Urine Clarity Urine pH Ur Specific [place] Urine Protein Urine Glucose (UA) Urine Ketones Urine Occult Blood Urine Nitrate Urine Bilirubin Urine Urobilinogen Ur Leukocyte Esterase Urine RBC Urine WBC Ur Squamous Epith Cells Urine Bacteria Urine Mucus Micro UA Comment Ur Microscopic Review Urine Culture Comments Salicylates Urine Opiates Screen Acetaminophen Less than 2.0 L Ur Barbiturates Screen Ur Amphetamines Screen U Benzodiazepines Scrn Urine Cocaine Screen U Cannabinoids Screen Serum Alcohol Less than 3 Discharge Plan - Discharge Disposition Patient Disposition: 65 Disc To Psych Care Facility - Discharge Condition Condition: Stable - Discharge Order Discharge Orders: Discharge Order (Routine); Ordered 07/07/18 Ordered By: Madyson Gallegos - Discharge Details Anticipated Discharge Date: 07/06/18 - Physicians Team Primary Care Provider: Primary Care Mini,Sheila Attending Provider: Madyson Gallegos Other Providers: Pranav Campbell DO
[2018-07-07 09:30] VITALS: PULSE 53
--- NOTE | 2018-07-07 15:44 | ECG ---
Date Performed: 07/06/2018 Time Performed: 09:06:17 PTAGE: 38 years EKG: Sinus rhythm NONSPECIFIC T-WAVE ABNORMALITY BORDERLINE ECG Compared to PREVIOUS TRACING , T-wave changes are new. PREVIOUS TRACIN01/01/2018 15.50 DOCTOR: Carroll Schaefer Interpretating Date/Time 07/07/2018 15:42:36
== END 2018-07-07 11:57 ==
LOC: NEDA 08:50 → NEPE 08:50 → NEPGCP 11:33
PROVIDERS: ADMIT Family Medicine; ATTEND Family Medicine

== ENCOUNTER 2018-07-07 12:46 | Inpatient (IN) ==
[2018-07-07] MEDS ORDERED: Aluminum/Magnesium/Simethacone Susp 30 ML UDC PO PRN (13:06)
[2018-07-07] MEDS ORDERED: Bisacodyl 10 MG Supp RECTAL PRN (13:06)
[2018-07-07] MEDS ORDERED: Haloperidol Inj 5 MG/ML Ampul IM PRN (13:06)
[2018-07-07] MEDS: Ibuprofen 600 MG Tablet PO SCH (14:50)
[2018-07-07] MEDS: Senna/Docusate Sodium 8.6/50 MG Tablet PO SCH (20:58)
[2018-07-08] MEDS: Ibuprofen 600 MG Tablet PO SCH ×4 (02:07→21:07)
[2018-07-08 03:25] LABS: Amphetamine Screen,Urine Neg (Neg); Barbiturate Screen,Urine Neg (Neg); Cannabinoid Screen,Urine Neg (Neg); Cocaine Screen,Urine Neg (Neg); Opiate Screen,Urine Neg (Neg)
[2018-07-08] MEDS: Senna/Docusate Sodium 8.6/50 MG Tablet PO SCH ×2 (08:50→21:10)
[2018-07-08 09:55] LABS: Anion Gap 7 meq/L (5-15); Blood Urea Nitrogen 13 mg/dL (7-18); Calcium 8.9 mg/dL (8.5-10.1); Carbon Dioxide 23.4 meq/L (21.0-32.0); Chloride 110 meq/L (98-107); Glomerular Filtration Rate Greater Than 89 mL/min (>89); Glucose,Random 103 mg/dL (74-106); Potassium 4.2 meq/L (3.5-5.1); Sodium 140 meq/L (136-145)
[2018-07-08 09:56] LABS: Cholesterol 170 mg/dL (120-200); Triglycerides 73 mg/dL (42-150)
[2018-07-08 09:58] LABS: Chol/HDL Ratio 2.59 Ratio; HDL Cholesterol 65.6 mg/dL (40.0-60.0); LDL Cholesterol,Calculated 90 mg/dL (0-99)
--- NOTE | 2018-07-08 13:46 | P.HPPSY ---
Provisional Diagnosis Admission Date: July 07, 2018 12:46 Competence Certification of Person's Competence To Provide Express and Informed Consent I have personally examined Shazia Kiser, a person being served at [facility] on, July 08, 2018 1341. Express and informed consent means consent voluntarily given in writing, by a competent person, after sufficient explanation and disclosure of the subject matter involved to enable the person to make a knowing and willful decision without any element of force, fraud, deceit, duress, or other form of constraint or coercion. This person is 18 years of age or older, is not now known to be incompetent to consent to treatment with a guardian advocate, and does not have a health care surrogate or proxy currently making medical treatment decisions. I have found this person to be one of the following: [X] Competent to provide express and informed consent, as defined above, for voluntary admission to this facility and is competent to provide express and informed consent for treatment. He/she has the consistent capacity to make well reasoned, willful, and knowing decisions concerning his or her medical or mental health treatment. The person fully and consistently understands the purpose of the admission for examination/placement and is fully capable of personally exercising all rights assured under [place] [] Incompetent to provide express and informed consent to voluntary admission, and this is incompetent to provide express and informed consent to treatment. The person must be transferred to involuntary status and a petition for a guardian advocate filed with the Circuit Court. [] Refusing to provide express and informed consent to voluntary admission but is competent to provide express and informed consent for treatment. The person must be discharged or transferred to involuntary status. Form shall be completed within 24 hours of a person's arrival at the receiving facility and filed in the clinical record of each person: 1. Admitted on a voluntary basis 2. Permitted to provide express and informed consent to his/her own treatment 3. Allowed to transfer from involuntary to voluntary status 4. Prior to permitting a person to consent to his or her own treatment after having been previously found incompetent to consent to treatment. History of Present Illness Capacity: Has capacity Chief Complaint: see below History of Present Illness: Documentation was reviewed, case was discussed with nursing and patient was evaluated. Patient was seen yesterday for a psychiatric consult. . Patient is a 38-year-old female brought to the ER Via [employer] [facility] after an overdose on half a bottle of Haldol. Today, patient is perseverant that she has had a panic attack and is asking for anxiety medication. Nursing has not noticed any panic symptoms. Patient denies any auditory or visual hallucinations. Denies any paranoia. She has preoccupied with anxiety and panic. To the point to where this could be psychosis. We spoke about medication and she consents for Seroquel. Patient remains depressed but she denies suicidal or homicidal ideation plan. Patient denies general life stressors as a reason for her overdose. Per nursing she has been inconsistent with her statements at times saying she was not suicidal but later saying she was. Patient notes a history of bipolar disorder and schizophrenia. Stressors include an increase in panic attacks where she cannot breathe and has tachycardia. Her Vistaril is no longer working. Today, she denies any auditory or visual hallucinations. He denies any paranoia. She does admit to depressed mood and has suicidal ideation with intent but no plan. Patient says that if a gun or knife poor in front of her at this time she is not sure if she would hurt herself or not. Past psych: Patient has been seeing a psychiatrist in [place] and says she had been compliant with her medications. She feels that the Haldol was working for psychosis. She describes 1 other inpatient admission where she had thoughts of jumping in front of a car. 3 total suicide attempts with the other being overdosing on a bottle of Xanax in front of a security police so she would not go to custodial. Past medical: Denies Past Famhx: Uncle had schizophrenia Past Social: Patient had one DUI, she notes a recent increase in alcohol consumption drinking every other day. However she says for the last week she is only had 1 drink a week. She has a history of cocaine use. She is currently and has 1 child who is grown out. 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 This includes certification that hospital inpatient services are reasonable and necessary and in the case of services not specified as inpatient-only under 42 CFR 419.22(n), that they are appropriately provided as inpatient services in accordance to with the 2-midnight benchmark under 43 CFR 412.3(e) I certify that inpatient psychiatric hospital services are medically necessary. Evaluation and treatment and/or diagnostic testing are expected to improve the patient's condition. The patient needs on a daily basis, active treatment furnished directly by or requiring the supervision of inpatient psychiatric facility personnel. Estimated Total Length of Stay (Days): 5 Plans for Post Hospital Care: [facility] Review of Systems All other systems reviewed negative except as stated in HPI PMFSH - History History Provided By: Patient - Medical History Medical History: Medical History (Last Reviewed 07/08/18 @ 13:41 by Pranav Campbell DO) Anxiety Bipolar 1 disorder, depressed Depression Frequent UTI Schizophrenia - Surgical History Surgical History: Surgical History (Last Reviewed 07/08/18 @ 13:41 by Pranav Campbell DO) No history of previous surgery - Tobacco History Second Hand Smoke Exposure: No Smoking Status: Never smoker Tobacco Type: Cigarettes - Alcohol History How Often Do You Have a Drink Containing Alcohol: 2 to 4 times a month - Substance Use History Substance History: Past History - Travel History Recent Travel in the [place] Within the Last 8 Weeks: No Recent Travel Out of the Country Within the Last 8 Weeks: No - Immunization History Tetanus Immunization: >5 Years Hx Influenza Vaccine This Season: No Medications and Allergies Active Medications: Active Medications Al Hydrox/Mg Hydrox/Simethicone (Mag-Al Plus Susp Liq) 30 ml PO Q6H PRN PRN Reason: DYSPEPSIA Al Hydroxide/Mg Hydroxide (Milk Of Magnesia Liq) 30 ml PO Q12H PRN PRN Reason: Mild Constipation Bisacodyl (Dulcolax Supp) 10 mg RECTAL DAILY PRN PRN Reason: SEVERE CONSITIPATION Diphenhydramine HCl (Benadryl) 50 mg PO HS PRN PRN Reason: INSOMNIA Haloperidol Lactate (Haldol Inj) 5 mg IM Q6H PRN PRN Reason: SEVERE AGITATION Hydroxyzine HCl (Atarax) 50 mg PO Q6H PRN PRN Reason: ANXIETY Ibuprofen (Motrin) 600 mg PO Q8HR [facility] Last Admin: 07/08/18 05:40 Dose: Not Given Lactulose (Lactulose Liq) 30 ml PO DAILY PRN PRN Reason: SEVERE CONSITIPATION Senna/Docusate Sodium (Shahana-Colace) 1 tab PO BID [facility] Last Admin: 07/08/18 08:50 Dose: 1 tab Sennosides (Senokot) 17.2 mg PO Q12H PRN PRN Reason: Moderate Constipation Allergies Allergy/AdvReac Type Severity Reaction Status Date / Time No Known Allergies Allergy Verified 06/26/18 11:06 Results - Labs CBC & Chem 7: 07/08/18 09:09 Labs: Laboratory Results - last 24 hr 07/08/18 07/08/18 03:05 09:09 Sodium 140 Potassium 4.2 Chloride 110 H Carbon Dioxide 23.4 Anion Gap 7 BUN 13 Creatinine 0.71 Estimated GFR Greater than 89 Random Glucose 103 Calcium 8.9 Triglycerides 73 Cholesterol 170 LDL Cholesterol, Calc 90 HDL Cholesterol 65.6 H Cholesterol/HDL Ratio 2.59 Urine Opiates Screen Neg Ur Barbiturates Screen Neg Ur Amphetamines Screen Neg U Benzodiazepines Scrn Neg Urine Cocaine Screen Neg U Cannabinoids Screen Neg Exam Vital signs: Vital Signs 07/07/18 17:44 07/08/18 05:05 Temperature 97.8 F 97.9 F Pulse Rate 65 61 Respiratory Rate 16 17 Blood Pressure 121/86 104/61 Pulse Oximetry 96 98 Intake & Output 07/07/18 07/08/18 07/08/18 18:59 06:59 18:59 Weight 63.9 kg 64.5 kg Other: Weight On Admission 63.9 kg Mental Status Examination Appearance: Disheveled Consciousness: Alert Orientation: x4 Motor Activity: Normal gait Speech: Unremarkable Language: Adequate Fund of Knowledge: Adequate Attention and Concentration: Adequate Memory: Unremarkable Mood: Appropriate Affect: Appropriate Thought Process & Associations: Disorganized Thought Content: Appropriate Hallucination Type: None Delusion Type: None Suicidal Ideation: No Suicidal Plan: No Suicidal Intention: No Homicidal Ideation: No Homicidal Plan: No Homicidal Intention: No Insight: Poor Judgment: Poor Assessment and Plan - Assessment (1) Schizoaffective disorder Code(s): F25.9 - Schizoaffective disorder, unspecified Status: Acute - Plan Plan: Estimated LOS: [] days Patient can sign voluntary. She gives consent for Seroquel 50 mg p.o. twice daily to treat anxiety and psychosis and mood. Seroquel 100 mg p.o. nightly Justification for Continued Inpatient Stay: Patient would decompensate in a less restrictive setting
[2018-07-08] MEDS: QUEtiapine 25 MG Tablet PO SCH ×2 (14:04→21:08)
[2018-07-08 15:54] LABS: Hemoglobin A1c 5.2 % (4.3-6.0)
[2018-07-08] MEDS ORDERED: QUEtiapine 100 MG Tablet PO SCH (21:00)
[2018-07-09] MEDS: Ibuprofen 600 MG Tablet PO SCH ×3 (06:27→22:07)
[2018-07-09] MEDS: Senna/Docusate Sodium 8.6/50 MG Tablet PO SCH ×2 (08:28→22:06)
[2018-07-09] MEDS: QUEtiapine 25 MG Tablet PO SCH (08:28)
--- NOTE | 2018-07-09 10:51 | P.PNPSY ---
Subjective Remarks: Patient seen and examined with nurse. Chart reviewed. Reviewing the electronic medical record, I note that the patient was most recently psychiatrically hospitalized here under Dr. Mireles in December of this year, at which time she was stabilized on Zoloft 50 mg daily and Seroquel 500 mg total daily dose. Case discussed with nursing staff who reports patient has been somewhat seclusive to room. Case discussed in treatment team. Counselor relates that patient's youth career specialist from [facility] for the patient. On my examination today, the patient complains of anxiety but does not appear particularly anxious. She denies audiovisual hallucinations. She does appears somewhat internally preoccupied. She endorses passive thoughts of in the hospital and insinuates that she would experience active suicidal ideation outside of the hospital setting. She also endorses violent ideation towards an ex-boyfriend who "wants me to apologize for something that happened a long time ago." No side effects from medication. Agreeable to resumption of Zoloft and titration of Seroquel towards previously efficacious doses. No physical complaints. Vital Signs Temp Pulse Resp BP 07/09/18 07:27 97.5 F L 57 L 15 96/54 L Laboratory Tests 07/08/18 07/08/18 07/08/18 03:05 09:09 09:09 Sodium 140 Potassium 4.2 Chloride 110 H Carbon Dioxide 23.4 Anion Gap 7 BUN 13 Creatinine 0.71 Estimated GFR Greater than 89 Random Glucose 103 Hemoglobin A1c 5.2 Calcium 8.9 Triglycerides 73 Cholesterol 170 LDL Cholesterol, Calc 90 HDL Cholesterol 65.6 H Cholesterol/HDL Ratio 2.59 Urine Opiates Screen Neg Ur Barbiturates Screen Neg Ur Amphetamines Screen Neg U Benzodiazepines Scrn Neg Urine Cocaine Screen Neg U Cannabinoids Screen Neg Labs reviewed. Review of Systems All other systems reviewed negative except as stated in HPI Mental Status Examination Appearance: Disheveled Consciousness: Alert Orientation: x4 Motor Activity: Normal gait, Other (No motor abnormalities noted) Speech: Unremarkable Language: Adequate Fund of Knowledge: Adequate Attention and Concentration: Adequate Memory: Unremarkable Mood: Anxious Affect: Blunt Thought Process & Associations: Intact Thought Content: Appropriate Hallucination Type: None (Denies AVH but does appears somewhat internally preoccupied) Delusion Type: None Suicidal Ideation: No (Passive thoughts of ) Suicidal Plan: No Suicidal Intention: No Homicidal Ideation: Yes (Violent ideation against ex-boyfriend only as noted above) Homicidal Plan: No Homicidal Intention: No (No reported urge to hurt anyone on inpatient unit) Insight: Poor Judgment: Poor Assessment and Plan - Assessment (1) Schizoaffective disorder Code(s): F25.9 - Schizoaffective disorder, unspecified Status: Acute - Plan Plan: Add Zoloft 50 mg daily for anxiety complaints. Titrate Seroquel to 100 mg in the morning and 200 mg at bedtime with blood pressure hold parameters. Check EKG for QTC. Check beta hCG. Continue to monitor on the inpatient unit. Patient is not to visit with ex-boyfriend given above. Continue other medications and care as ordered. Justification for Continued Inpatient Stay: Medication changes. Risk for decompensation in less restrictive environment. Discharge Planning: Possible placement as noted above. Request Healthcare Surrogate/Guardian Advocate?: No
--- NOTE | 2018-07-09 15:48 | P.TTN ---
- Patient Problems Problems: 1. Discharge planning 2. Medication compliance 3. Knowledge deficit 4. Lack of coping skills - Progress Toward Goals Provider Present: Dr. Jennifer Anton (Tapering patient off "Lubox" (anti- depressant)) Psychiatric Counselors Present: Travis Mariee Jr., [facility] (Vikash from care coordination wants to link patient to homeless community assisted to help with oracle financial application developer and a safe placement.) Group Spec/RT/OT/ARORA Present: MAITE Sandoval (Pt. attends select groups. Pt. is somewhat withdrawn.) - Documentation Teaching Recipient: Patient
[2018-07-10] MEDS: Ibuprofen 600 MG Tablet PO SCH ×3 (06:56→21:47)
[2018-07-10] MEDS: Senna/Docusate Sodium 8.6/50 MG Tablet PO SCH ×2 (08:25→21:47)
[2018-07-10] MEDS: QUEtiapine 100 MG Tablet PO SCH (08:25)
[2018-07-10] MEDS: Sertraline 50 MG Tablet PO SCH (08:25)
--- NOTE | 2018-07-10 13:15 | P.PNPSY ---
Subjective Chief Complaint: . Remarks: Patient seen and examined with nurse. Chart reviewed. Case discussed with nursing staff. Patient reportedly had an outburst this morning in which she threw water everywhere in the dayroom. Since that time, the patient has been behaving fairly appropriately. On my examination today, the patient complains of feeling anxious "just a little." She denies SI or HI. Denies AVH. She says that she threw the water this morning because she was upset at a staff member who was "being evasive" regarding the timing of delivery of meal trays. Nurse encourages patient to report any such frustrations to nursing staff. Denies side effects from medications. No physical complaints. Vital Signs Temp Pulse Resp BP Pulse Ox 07/10/18 06:27 97.4 F L 64 15 97/59 L 99 07/09/18 23:07 16 07/09/18 18:00 98 F 66 16 110/65 98 Intake and Output 07/09/18 07/10/18 07/10/18 22:59 06:59 14:59 Other: Date of Last Bowel Movement 07/09/18 Laboratory Results - last 24 hr 07/09/18 15:17 Beta HCG, Quant Less than 1 Labs reviewed. EKG reveals sinus bradycardia with a QTC of 412 ms, not prolonged. Review of Systems All other systems reviewed negative except as stated in HPI Mental Status Examination Appearance: Appropriate (Fair) Consciousness: Alert Orientation: x4 Motor Activity: Normal gait, Other (No motor abnormalities noted) Speech: Unremarkable Language: Adequate Fund of Knowledge: Adequate Attention and Concentration: Adequate Memory: Unremarkable Mood: Anxious (Mild) Affect: Blunt Thought Process & Associations: Intact Thought Content: Appropriate Hallucination Type: None Delusion Type: None Suicidal Ideation: No Homicidal Ideation: No Insight: Poor Judgment: Poor Assessment and Plan - Assessment (1) Schizoaffective disorder Code(s): F25.9 - Schizoaffective disorder, unspecified Status: Acute - Plan Plan: Continue current psychotropics as ordered. We might consider further titration of Seroquel to try to bring the dose more in line with previously efficacious dose, but blood pressure is somewhat on the low side, and it is possible that overly rapid titration will worsen hypotension. Continue to monitor on the inpatient unit. Continue other medications and care as ordered. Justification for Continued Inpatient Stay: Risk for decompensation in less restrictive environment. Discharge Planning: Possible placement with assistance of outpatient mental health team. Patient is receptive to and desirous of placement. Request Healthcare Surrogate/Guardian Advocate?: No
--- NOTE | 2018-07-10 18:35 | ECG ---
Date Performed: 07/09/2018 Time Performed: 16:52:13 PTAGE: 38 years EKG: SINUS BRADYCARDIA BORDERLINE ECG PREVIOUS TRACING : 07/06/2018 09.06 Since the previous tracing, no significant change noted DOCTOR: Zack Bustos Interpretating Date/Time 07/10/2018 18:33:31
[2018-07-11] MEDS: Senna/Docusate Sodium 8.6/50 MG Tablet PO SCH ×2 (08:45→20:57)
[2018-07-11] MEDS: Ibuprofen 600 MG Tablet PO SCH ×2 (08:45→13:09)
[2018-07-11] MEDS: Sertraline 50 MG Tablet PO SCH (08:45)
[2018-07-11] MEDS: QUEtiapine 100 MG Tablet PO SCH (08:45)
[2018-07-11] MEDS ORDERED: Ibuprofen 600 MG Tablet PO PRN (13:39)
--- NOTE | 2018-07-11 13:39 | P.PNPSY ---
Subjective Chief Complaint: . Remarks: Patient seen and examined with nurse. Chart reviewed. Case discussed with nursing staff. On my examination today, the patient complains of increased "need to move around." This restlessness has apparently been somewhat worsened with medication. Akathisia is suspected. We discussed management strategies including initiation of beta-mora (not feasible given low blood pressures), initiation of a benzodiazepine (although the patient does report a history of substance use issues per) or transition to a different antipsychotic. After discussion of her pharmacotherapeutic options, the patient prefers to switch antipsychotic. We settle on a trial of Zyprexa. No other side effects from medications. No physical complaints. I did discuss case with insurance healthcare consultant from [facility] Mor[facility], who reports that patient has been accepted at [facility], and they will hold her bed until she is psychiatrically stable. Vital Signs Temp Pulse Resp BP Pulse Ox 07/11/18 06:25 97.5 F L 60 17 99/54 L 96 07/10/18 18:38 97.4 F L 64 111/74 97 Intake and Output 07/11/18 07/11/18 07/11/18 06:59 14:59 22:59 Other: Date of Last Bowel Movement 07/09/18 07/10/18 Labs reviewed. No new labs. Review of Systems All other systems reviewed negative except as stated in HPI Mental Status Examination Appearance: Appropriate (Fair) Consciousness: Alert Orientation: x4 Motor Activity: Other (No abnormal motor movements noted) Speech: Unremarkable Language: Adequate Fund of Knowledge: Adequate Attention and Concentration: Adequate Memory: Unremarkable Mood: Anxious Affect: Blunt Thought Process & Associations: Intact Thought Content: Appropriate Hallucination Type: None Delusion Type: None Suicidal Ideation: No Homicidal Ideation: No Insight: Poor Judgment: Poor Assessment and Plan - Assessment (1) Schizoaffective disorder Code(s): F25.9 - Schizoaffective disorder, unspecified Status: Acute - Plan Plan: Discontinue Seroquel and initiate Zyprexa 5 mg at bedtime with plans to titrate to effect. Monitor for change in restlessness. Continue to monitor on the inpatient unit. Continue other medications and care as ordered. Justification for Continued Inpatient Stay: Medication changes. Discharge Planning: Placement following psychiatric stabilization. Request Healthcare Surrogate/Guardian Advocate?: No
[2018-07-12] MEDS: Senna/Docusate Sodium 8.6/50 MG Tablet PO SCH ×2 (10:04→20:13)
[2018-07-12] MEDS: Sertraline 50 MG Tablet PO SCH (10:04)
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
--- NOTE | 2018-07-12 16:14 | P.TTN ---
- Patient Problems Problems: 1. Discharge planning 2. Medication compliance 3. Knowledge deficit 4. Lack of coping skills - Progress Toward Goals Provider Present: Dr. Jennifer Anton (Tapering patient off "Lubox" (anti- depressant)) Provider Input: 07/12/18:Patient started Zyprexa and discontinued Seroquel. Will be discharged to [facility] on Sunday07/15/18. Nurse(s) Present: Juan Manuel MELCHOR Nurse Input: 07/12/18: Pt is appropriate with staff, Med compliant, treatment cooperative, sleeps well. Psychiatric Counselors Present: Travis Mariee Jr., [facility] (Vikash from care coordination wants to link patient to homeless community [facility] to help with financial controller and a safe placement.), Celia Arambula, [facility], Other (Daniela Smith) Psychiatric Therapist Input: 07/12/18: Cooperative, attends select Psychotherapy Groups, treatment motivated. Group Spec/RT/OT/ARORA Present: ARACELI Hare Group Spec/RT/OT/ARORA Input: 07/12/18: Patient attends select group activities with good participation. Pt is more social with peers., follows rules. - Discharge Plan On Sunday July 15, 2018 the Patient will be discharged to [facility]. - Documentation Scribe: Marizol Cooper Teaching Recipient: Patient
[2018-07-12] MEDS: OLANZapine 10 MG Tablet PO SCH (20:13)
[2018-07-13] MEDS: Senna/Docusate Sodium 8.6/50 MG Tablet PO SCH ×2 (09:01→20:24)
[2018-07-13] MEDS: Sertraline 50 MG Tablet PO SCH (09:02)
--- NOTE | 2018-07-13 14:17 | P.PNPSY ---
Subjective Chief Complaint: . Remarks: Pt seen and discussed with staff. Chart reviewed. She was admitted due to suicide attempt via OD. She has been restless and anxious today. She denies SI/ HI. Today pt told RN that someone is putting thoughts into her head to try and make her worry so she will hurt herself. She states these are lessening due to medications. Pt has been engaging. She has been compliant with medications and care. Mental Status Examination Appearance: Appropriate (Fair) Consciousness: Alert Orientation: x4 Motor Activity: Other (No motoric abnormalities noted) Speech: Unremarkable Language: Adequate Fund of Knowledge: Adequate Attention and Concentration: Adequate Memory: Unremarkable Mood: Anxious Affect: Blunt Thought Process & Associations: Intact Thought Content: Other (thought insertion) Hallucination Type: None Delusion Type: None Suicidal Ideation: No Suicidal Plan: No Suicidal Intention: No Homicidal Ideation: No Homicidal Plan: No Homicidal Intention: No Insight: Poor Judgment: Poor Assessment and Plan - Assessment (1) Schizoaffective disorder Code(s): F25.9 - Schizoaffective disorder, unspecified Status: Acute - Plan Plan: TContinue current tx plan Justification for Continued Inpatient Stay: psychosis Request Healthcare Surrogate/Guardian Advocate?: No
[2018-07-13] MEDS: OLANZapine 10 MG Tablet PO SCH (20:24)
[2018-07-14] MEDS: Sertraline 50 MG Tablet PO SCH (08:55)
[2018-07-14] MEDS: Senna/Docusate Sodium 8.6/50 MG Tablet PO SCH ×2 (08:56→20:19)
--- NOTE | 2018-07-14 14:13 | P.PNPSY ---
Subjective Chief Complaint: . Remarks: Chart reviewed and discussed with nursing staff. Patient is in her room napping. She states that she does sleep through the night but needs a nap in the middle of the afternoon. She denies auditory hallucinations, but describes what she calls "thought insertion"as people talking into her head. She appears internally stimulated. She eats and sleeps well. Quiet and shy. Medication compliant. Denies SI/HI. Review of Systems All other systems reviewed negative except as stated in HPI Mental Status Examination Appearance: Appropriate (Fair) Consciousness: Alert Orientation: x4 Motor Activity: Other (No motoric abnormalities noted) Speech: Unremarkable Language: Adequate Fund of Knowledge: Adequate Attention and Concentration: Adequate Memory: Unremarkable Mood: Sad Affect: Flat, Blunt Thought Process & Associations: Intact Thought Content: Other (thought insertion) Hallucination Type: None Delusion Type: None Suicidal Ideation: No Suicidal Plan: No Suicidal Intention: No Homicidal Ideation: No Homicidal Plan: No Homicidal Intention: No Insight: Poor Judgment: Poor Assessment and Plan - Assessment (1) Schizoaffective disorder Code(s): F25.9 - Schizoaffective disorder, unspecified Status: Acute - Plan Plan: TContinue current tx plan Justification for Continued Inpatient Stay: Moving patient to a less restrictive environment may result in her decompensation. Request Healthcare Surrogate/Guardian Advocate?: No
[2018-07-14 17:49] VITALS: PULSE 64; RESP 16
[2018-07-14] MEDS: OLANZapine 10 MG Tablet PO SCH (20:19)
[2018-07-15 05:31] VITALS: BP 93/55; TEMP 97.7; O2SAT 97
[2018-07-15] MEDS: Sertraline 50 MG Tablet PO SCH (08:47)
[2018-07-15] MEDS: Senna/Docusate Sodium 8.6/50 MG Tablet PO SCH (08:47)
--- NOTE | 2018-07-15 10:12 | P.DSPSY ---
Psychiatry Discharge Summary Inpatient Psychiatric care?: Yes Advance Directives: No Mental Health Advance Directive: No Health Care Proxy: No - Admission Admission Date: July 07, 2018 12:46 - Admission Diagnosis (1) Schizoaffective disorder Code(s): F25.9 - Schizoaffective disorder, unspecified Brief History: Documentation was reviewed, case was discussed with nursing and patient was evaluated. Patient was seen yesterday for a psychiatric consult. . Patient is a 38-year-old female brought to the ER [facility] after an overdose on half a bottle of Haldol. Today, patient is perseverant that she has had a panic attack and is asking for anxiety medication. Nursing has not noticed any panic symptoms. Patient denies any auditory or visual hallucinations. Denies any paranoia. She has preoccupied with anxiety and panic. To the point to where this could be psychosis. We spoke about medication and she consents for Seroquel. Patient remains depressed but she denies suicidal or homicidal ideation plan. Patient denies general life stressors as a reason for her overdose. Per nursing she has been inconsistent with her statements at times saying she was not suicidal but later saying she was. Patient notes a history of bipolar disorder and schizophrenia. Stressors include an increase in panic attacks where she cannot breathe and has tachycardia. Her Vistaril is no longer working. Today, she denies any auditory or visual hallucinations. He denies any paranoia. She does admit to depressed mood and has suicidal ideation with intent but no plan. Patient says that if a gun or knife poor in front of her at this time she is not sure if she would hurt herself or not. Past psych: Patient has been seeing a psychiatrist in [place] and says she had been compliant with her medications. She feels that the Haldol was working for psychosis. She describes 1 other inpatient admission where she had thoughts of jumping in front of a car. 3 total suicide attempts with the other being overdosing on a bottle of Xanax in front of a law enforcement officer so she would not go to senior care. Past medical: Denies Past Famhx: Uncle had schizophrenia Past Social: Patient had one DUI, she notes a recent increase in alcohol consumption drinking every other day. However she says for the last week she is only had 1 drink a week. She has a history of cocaine use. She is currently and has 1 child who is grown out. 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 Appropriate precautions were in place throughout patient's hospital stay. Patient was seen and examined on the unit by psychiatry and also visited by counselor. Psychotropic medications were adjusted. The patient experienced some possible akathisia from Seroquel and so was switched to Zyprexa to good effect. There was no evidence of any suicidality or homicidality on the inpatient unit. There was no evidence of self-care deficit. Working with the patient and [facility] home health caregiver, counselor has arranged for sober living placement for the patient. On the day of discharge: Patient seen and examined with counselor. Chart reviewed. Case discussed with nursing staff. No behavioral issues noted overnight. Case discussed with counselor. On my examination today, the patient requests discharge from the inpatient psychiatric unit today. She is excited about the prospect of entering into a sober living. She denies any suicidal or homicidal ideation, intent or plan. I can elicit no depressive or hypomanic/manic symptoms. She denies any audiovisual hallucinations. I can elicit no paranoia, no feelings of thought manipulation or ideas of reference or other delusional material. She denies any side effects from medications. No ongoing reported akathisia. No physical complaints. Suicide and violence risk assessment on day of discharge both suggest lower imminent risk from mental illness, and the patient's level of function is adequate for planned level of outpatient care. Patient has maximized benefit from this inpatient psychiatric hospital stay. She will be discharged today to sober living with psychiatric follow-up as arranged by counselor. Patient is also to follow up with primary care. I have counseled the patient to return to the psychiatric emergency room for any concerning symptoms as part of a general safety plan. - Discharge Discharge Date: 07/15/18 - Discharge Diagnosis (1) Schizoaffective disorder Diagnosis: Principal (Stabilized) Code(s): F25.9 - Schizoaffective disorder, unspecified Status: Acute Discharge Disposition: Sober living - Discharge Instructions Discharge Diet: Regular Diet Activities You Can Perform: Weight Bearing As Tolerat - Discharge Time <= 30 minutes Mental Status Examination Appearance: Appropriate Consciousness: Alert Orientation: x4 Motor Activity: Normal gait, Other (No abnormal motor movements noted.) Speech: Unremarkable Language: Adequate Fund of Knowledge: Adequate Attention and Concentration: Adequate Memory: Unremarkable Mood: Appropriate Affect: Appropriate Thought Process & Associations: Intact, Logical, Goal directed, Linear Thought Content: Appropriate Hallucination Type: None Delusion Type: None (No feelings of thought insertion today) Suicidal Ideation: No Suicidal Plan: No Suicidal Intention: No Homicidal Ideation: No Homicidal Plan: No Homicidal Intention: No Mental Status Exam Remarks: Insight and judgment are chronically poor, likely as a consequence of patient's psychotic illness. Discharge/Advance Care Plan - Results Vital Signs: Last Vital Signs Temp 97.7 F 07/15/18 05:27 Pulse 64 07/14/18 17:48 Resp 16 07/15/18 05:27 BP 93/55 L 07/15/18 05:27 Pulse Ox 97 07/15/18 05:27 Lab Results: Laboratory Results Hemoglobin A1c 5.2 % (4.3-6.0) 07/08/18 09:09 Triglycerides 73 mg/dL (42-150) 07/08/18 09:09 Cholesterol 170 mg/dL (120-200) 07/08/18 09:09 LDL Cholesterol, Calc 90 mg/dL (0-99) 07/08/18 09:09 HDL Cholesterol 65.6 mg/dL (40.0-60.0) H 07/08/18 09:09 Summary of Procedures: None done. Pending Results: None - Medications Number of antipsychotic medications at discharge: 1 - Discharge Care Plan Goals to Promote Your Health: * To prevent worsening of your condition and complications * To maintain your health at the optimal level Directions to Meet Your Goals: Take your medications as prescribed Follow your dietary instruction Follow activity as directed Keep your appointments as scheduled Take your immunizations and boosters as scheduled If your symptoms worsen call your PCP, if no PCP go to Urgent Care Center or Emergency Room For 16/04 questions related to your inpatient stay or results of tests pending at discharge, please contact Dr. Carlos Anton MD at Smoking is Dangerous to Your Health. Avoid second hand smoking
== END 2018-07-15 11:50 ==
LOC: H260 12:46
PROVIDERS: ADMIT Psychiatry & Neurology Psychiatry; ATTEND Psychiatry & Neurology Psychiatry